=== PATIENT | female | born 1975 | race Caucasian/White ===

== ENCOUNTER 2016-12-19 16:41 | Inpatient (IN) ==
[2016-12-19] MEDS ORDERED: Pantoprazole 80 MG in 0.9 % Sodium Chloride 50 ML IVPB ONE (17:02)
[2016-12-19] MEDS ORDERED: *HR* HYDROmorphone (PF) 1 MG/ML SYRINGE IVP ONE ×2 (17:02→18:41)
[2016-12-19] MEDS ORDERED: Ondansetron 4 MG/2 ML VIAL IVP ONE (17:02)
[2016-12-19] MEDS ORDERED: 0.9 % Sodium Chloride 1,000 ML IVC ONE (17:02)
--- NOTE | 2016-12-19 17:02 | Emergency Department Note ---
Disposition Clinical Impression: Periorbital edema, Gastrointestinal bleeding, Anemia, Postoperative upper abdominal pain, Angiodysplasia of colon Disposition: Admitted As Inpatient Condition: Good Referrals: Marlon Rivera MD [Primary Care Provider] - Forms: Work/School Release, ED Satisfaction Letter General Adult HPI - General Chief complaint: ED Abdominal Pain Stated complaint: Abdominal Pain/ "GI Bleeding" Time Seen by Provider: 12/19/16 16:54 Source: patient Limitations: no limitations - History of Present Illness HPI Narrative: 41-year-old female reports emergency department complaining of abdominal pain. She describes diffuse abdominal pain and bright red blood per rectum. The patient had an EGD yesterday at this facility which was negative, her colonoscopy revealed multiple colonic lesions which were nonbleeding. She reports there were so many noted that they were consulted surgery to arrange for possible colonic resection. 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 She reports worsening abdominal pain and persistent rectal bleeding. There is no history of vomiting of black or bloody material. She has not known to be anticoagulated. She does take a PPI at home. The patient denies any chest pain or shortness of breath, there is no history of syncope or leidy weakness. No fevers, no urinary symptoms, she states she is status post hysterectomy and is not . There is no history of flank or back pain no vaginal bleeding discharge or pelvic complaints. There is no history of rash or trauma. Pain Scale: 10 - Related Data Home Medications Medication Instructions Recorded Confirmed Hyoscyamine Sulfate [Hyoscyamine 0.375 mg PO BID 12/18/16 12/19/16 Sulfate ER] Omeprazole [PriLOSEC] 40 mg PO DAILY 12/18/16 12/19/16 Ondansetron ODT [Zofran ODT] 4 mg SL Q8H PRN 12/18/16 12/19/16 Allergies Allergy/AdvReac Type Severity Reaction Status Date / Time fentanyl Allergy Hives Verified 12/07/16 16:26 All systems ED: reviewed and negative except as stated. Past Medical History - Past Medical History Medical history: Reports: GERD, GI bleed, other Surgical history: Reports: appendectomy, hysterectomy, other Psychiatric history: Reports: depression [employer] history: Reports: bilateral tubal ligation - Social History Smoking Status: Current every day smoker Smokeless Tobacco Status: No Alcohol use: Reports: none Drug use: Reports: none Physical Exam - General Limitations: no limitations General appearance: alert - Head Head exam: atraumatic, normocephalic, normal inspection - Eye Eye exam: Present: normal appearance, PERRL, EOMI - ENT ENT exam: normal exam, normal oropharynx, mucous membranes moist - Neck Neck exam: Present: normal inspection, full ROM, trachea midline - Chest Chest inspection: Present: symmetric chest wall rise. Absent: tenderness - Respiratory Respiratory exam: Present: normal lung sounds bilaterally. Absent: respiratory distress - Cardiovascular Cardiovascular exam: Present: normal rhythm, tachycardia - Abdominal Exam Abdominal exam: Present: soft, tenderness, hyperactive bowel sounds. Absent: distention, guarding, rebound, rigidity, trauma, ascites, pulsatile mass Abdominal tenderness: Present: RUQ, LUQ, diffuse, moderate - Extremities Exam Extremities exam: Present: normal inspection, full ROM, normal capillary refill. Absent: tenderness, pedal edema, joint swelling, calf tenderness - Expanded Lower Extremity Exam Lower leg exam: Absent: Homans' sign Neurovascular/Tendon exam: Absent: motor deficit, sensory deficit, tendon deficit, extremity cold to touch, pallor - Back Exam Back exam: Present: normal inspection, full ROM. Absent: tenderness, CVA tenderness (R), CVA tenderness (L), vertebral tenderness - Neurological Exam Neurological exam: Present: alert, oriented X3, CN II-XII intact. Absent: motor sensory deficit - Psychiatric Psychiatric exam: Present: normal affect, normal mood - Skin Skin exam: Present: warm, dry, intact, normal color. 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 On yesterday's colonoscopy she had no acute bleeding, of note her hemoglobin did drop to 9.8, she was initially tachycardic in the ED, but after 1 L of fluid her heart rate went into the 70s. The patient declined a rectal exam. She feels like she may have to have a BM very soon. There has been no syncope and she has remained stable in the ED. Based on apparent acute GI bleeding, a drop in hemoglobin associated with tachycardia, and known multiple angiodysplastic colonic lesion noted on colonoscopy from yesterday, I think it would be appropriate to observe the patient in the hospital. The patient is currently stable. Her CT does not reveal an acute intra-abdominal process. The patient may also benefit from GI and surgical consultations. Hemoccult ordered and pending. Second CBC ordered. I have discussed the case with the hospitalist on -call. - Lab Data Lab results reviewed: Yes I reviewed the patient's lab results. Result diagrams: 12/19/16 17:13 12/19/16 17:13 Lab Results 12/19/16 12/19/16 12/19/16 Range/Units 17:13 17:13 17:13 WBC 9.8 (4.3-11.1) K/mcL RBC 3.44 L (3.82-4.97) M/mcL Hgb 9.8 L (11.5-15.4) g/dL Hct 30.7 L (35.3-44.9) % MCV 89.2 (83.0-100.0) fL MCH 28.5 (28.0-33.3) pg MCHC 31.9 (31.6-35.5) g/dL RDW 14.6 H (11.5-14.5) % Plt Count 240 (140-400) K/mcL MPV 10.9 (9.4-12.4) fL Immature Gran % 0.3 (0-4) % Seg Neutrophils % 69.5 % Lymphocytes % 21.3 % Monocytes % 6.3 % Eosinophils % 2.3 % Basophils % 0.3 % Neutrophils # 6.8 (1.6-8.9) K/mcL Lymphocytes # 2.1 (0.6-4.6) K/mcL Monocytes # 0.6 (0.0-1.3) K/mcL Eosinophils # 0.2 (0.0-0.6) K/mcL Basophils # 0.0 (0.0-0.2) K/mcL PT (9.4-12.1) Seconds INR APTT (26.0-36.0) Seconds Sodium 139 (136-145) mEq/L Potassium 4.2 (3.5-4.5) mEq/L Chloride 107 (98-109) mEq/L Carbon Dioxide 25 (19-29) mEq/L BUN 11 (7-20) mg/dL Creatinine 0.74 (0.57-1.11) mg/dL Est GFR ( Amer) > 60 (> 60) Est GFR (Non-Af Amer) > 60 (> 60) BUN/Creatinine Ratio 15 (6-26) Glucose 89 (70-99) mg/dL Calculated Osmolality 287 (280-300) Lactic Acid (0.5-2.2) mmol/L Calcium 9.4 (8.6-10.8) mg/dL Total Bilirubin 0.3 (0.2-1.2) mg/dL Direct Bilirubin < 0.1 (0.0-0.5) mg/dL Indirect Bilirubin 0.2 (0.0-1.2) mg/dL AST 28 (5-34) Units/L ALT 31 (0-55) Units/L Alkaline Phosphatase 100 (38-126) Units/L C-Reactive Protein (Less than 5) mg/L Serum Total Protein 7.4 (6.0-8.3) g/dL Albumin 3.9 (3.5-5.0) g/dL Globulin 3.5 (2.4-3.5) g/dL Albumin/Globulin Ratio 1.1 (1.1-2.2) Lipase 36 (8-78) Units/L Urine Color Yellow (Yellow) Urine Clarity Clear (Clear) Urine pH 6.5 (5.0-8.0) pH Units Ur Specific [place] 1.013 (1.010-1.025) Urine Protein Negative (Neg-Trace) mg/dL Urine Glucose (UA) Normal (Normal) mg/dL Urine Ketones Negative (Negative) mg/dL Urine Blood Negative (Negative) Urine Nitrite Negative (Negative) Urine Bilirubin Negative (Negative) Urine Urobilinogen Normal (Normal) mg/dL Ur Leukocyte Esterase Negative (Negative) Ur Culture Indicated? NO (NO) Blood Type Antibody Screen 12/19/16 12/19/16 12/19/16 Range/Units 17:13 17:13 17:13 WBC (4.3-11.1) K/mcL RBC (3.82-4.97) M/mcL Hgb (11.5-15.4) g/dL Hct (35.3-44.9) % MCV (83.0-100.0) fL MCH (28.0-33.3) pg MCHC (31.6-35.5) g/dL RDW (11.5-14.5) % Plt Count (140-400) K/mcL MPV (9.4-12.4) fL Immature Gran % (0-4) % Seg Neutrophils % % Lymphocytes % % Monocytes % % Eosinophils % % Basophils % % Neutrophils # (1.6-8.9) K/mcL Lymphocytes # (0.6-4.6) K/mcL Monocytes # (0.0-1.3) K/mcL Eosinophils # (0.0-0.6) K/mcL Basophils # (0.0-0.2) K/mcL PT 11.9 (9.4-12.1) Seconds INR 1.1 APTT 34.4 (26.0-36.0) Seconds Sodium (136-145) mEq/L Potassium (3.5-4.5) mEq/L Chloride (98-109) mEq/L Carbon Dioxide (19-29) mEq/L BUN (7-20) mg/dL Creatinine (0.57-1.11) mg/dL Est GFR ( Amer) (> 60) Est GFR (Non-Af Amer) (> 60) BUN/Creatinine Ratio (6-26) Glucose (70-99) mg/dL Calculated Osmolality (280-300) Lactic Acid 0.7 (0.5-2.2) mmol/L Calcium (8.6-10.8) mg/dL Total Bilirubin (0.2-1.2) mg/dL Direct Bilirubin (0.0-0.5) mg/dL Indirect Bilirubin (0.0-1.2) mg/dL AST (5-34) Units/L ALT (0-55) Units/L Alkaline Phosphatase (38-126) Units/L C-Reactive Protein 3 (Less than 5) mg/L Serum Total Protein (6.0-8.3) g/dL Albumin (3.5-5.0) g/dL Globulin (2.4-3.5) g/dL Albumin/Globulin Ratio (1.1-2.2) Lipase (8-78) Units/L Urine Color (Yellow) Urine Clarity (Clear) Urine pH (5.0-8.0) pH Units Ur Specific [place] (1.010-1.025) Urine Protein (Neg-Trace) mg/dL Urine Glucose (UA) (Normal) mg/dL Urine Ketones (Negative) mg/dL Urine Blood (Negative) Urine Nitrite (Negative) Urine Bilirubin (Negative) Urine Urobilinogen (Normal) mg/dL Ur Leukocyte Esterase (Negative) Ur Culture Indicated? (NO) Blood Type Antibody Screen 12/19/16 Range/Units 17:19 WBC (4.3-11.1) K/mcL RBC (3.82-4.97) M/mcL Hgb (11.5-15.4) g/dL Hct (35.3-44.9) % MCV (83.0-100.0) fL MCH (28.0-33.3) pg MCHC (31.6-35.5) g/dL RDW (11.5-14.5) % Plt Count (140-400) K/mcL MPV (9.4-12.4) fL Immature Gran % (0-4) % Seg Neutrophils % % Lymphocytes % % Monocytes % % Eosinophils % % Basophils % % Neutrophils # (1.6-8.9) K/mcL Lymphocytes # (0.6-4.6) K/mcL Monocytes # (0.0-1.3) K/mcL Eosinophils # (0.0-0.6) K/mcL Basophils # (0.0-0.2) K/mcL PT (9.4-12.1) Seconds INR APTT (26.0-36.0) Seconds Sodium (136-145) mEq/L Potassium (3.5-4.5) mEq/L Chloride (98-109) mEq/L Carbon Dioxide (19-29) mEq/L BUN (7-20) mg/dL Creatinine (0.57-1.11) mg/dL Est GFR ( Amer) (> 60) Est GFR (Non-Af Amer) (> 60) BUN/Creatinine Ratio (6-26) Glucose (70-99) mg/dL Calculated Osmolality (280-300) Lactic Acid (0.5-2.2) mmol/L Calcium (8.6-10.8) mg/dL Total Bilirubin (0.2-1.2) mg/dL Direct Bilirubin (0.0-0.5) mg/dL Indirect Bilirubin (0.0-1.2) mg/dL AST (5-34) Units/L ALT (0-55) Units/L Alkaline Phosphatase (38-126) Units/L C-Reactive Protein (Less than 5) mg/L Serum Total Protein (6.0-8.3) g/dL Albumin (3.5-5.0) g/dL Globulin (2.4-3.5) g/dL Albumin/Globulin Ratio (1.1-2.2) Lipase (8-78) Units/L Urine Color (Yellow) Urine Clarity (Clear) Urine pH (5.0-8.0) pH Units Ur Specific [place] (1.010-1.025) Urine Protein (Neg-Trace) mg/dL Urine Glucose (UA) (Normal) mg/dL Urine Ketones (Negative) mg/dL Urine Blood (Negative) Urine Nitrite (Negative) Urine Bilirubin (Negative) Urine Urobilinogen (Normal) mg/dL Ur Leukocyte Esterase (Negative) Ur Culture Indicated? (NO) Blood Type A NEGATIVE Antibody Screen NEGATIVE - Radiology Data Radiology results reviewed: Yes I reviewed the patient's radiology results.
[2016-12-19 17:22] LABS: Basophils % 0.3 %; Eosinophils # 0.2 K/mcL (0.0-0.6); Eosinophils % 2.3 %; Hematocrit 30.7 % (35.3-44.9); Hemoglobin 9.8 g/dL (11.5-15.4); Immature Granulocytes % 0.3 % (0-4); Lymphocytes # 2.1 K/mcL (0.6-4.6); Lymphocytes % 21.3 %; Mean Corpuscular HGB Conc 31.9 g/dL (31.6-35.5); Mean Corpuscular Hemoglobin 28.5 pg (28.0-33.3); Mean Corpuscular Volume 89.2 fL (83.0-100.0); Mean Platelet Volume 10.9 fL (9.4-12.4); Monocytes # 0.6 K/mcL (0.0-1.3); Monocytes % 6.3 %; Neutrophils # 6.8 K/mcL (1.6-8.9); Platelet Count 240 K/mcL (140-400); Red Blood Count 3.44 M/mcL (3.82-4.97); Red Cell Distribution Width 14.6 % (11.5-14.5); Segmented Neutrophils % 69.5 %
[2016-12-19 17:27] LABS: Bilirubin,Urine Negative (Negative); Blood,Urine Negative (Negative); Clarity,Urine Clear (Clear); Color,Urine Yellow (Yellow); Glucose,Urine (UA) Normal (Normal); INR 1.1; Ketones,Urine Negative (Negative); Leukocyte Esterase,Urine Negative (Negative); Nitrite,Urine Negative (Negative); PH,Urine 6.5 pH Units (5.0-8.0); Protein,Urine Negative (Neg-Trace); Prothrombin Time 11.9 Seconds (9.4-12.1); Specific Gravity,Urine 1.013 (1.010-1.025); Urobilinogen,Urine Normal (Normal)
[2016-12-19 17:29] LABS: Activated Partial Thrombo Time 34.4 Seconds (26.0-36.0)
[2016-12-19 17:36] LABS: Alanine Aminotransferase 31 Units/L (0-55); Albumin 3.9 g/dL (3.5-5.0); Albumin/Globulin Ratio 1.1 (1.1-2.2); Alkaline Phosphatase 100 Units/L (38-126); Aspartate Amino Transferase 28 Units/L (5-34); BUN/Creatinine Ratio 15 (6-26); Bilirubin,Direct < 0.1 mg/dL (0.0-0.5); Bilirubin,Indirect 0.2 mg/dL (0.0-1.2); Bilirubin,Total 0.3 mg/dL (0.2-1.2); Blood Urea Nitrogen 11 mg/dL (7-20); Calcium 9.4 mg/dL (8.6-10.8); Carbon Dioxide 25 mEq/L (19-29); Chloride 107 mEq/L (98-109); Globulin 3.5 g/dL (2.4-3.5); Glucose 89 mg/dL (70-99); Lipase 36 Units/L (8-78); Osmolality,Calculated 287 (280-300); Potassium 4.2 mEq/L (3.5-4.5); Sodium 139 mEq/L (136-145); Total Protein 7.4 g/dL (6.0-8.3); eGFR For African Americans > 60 (> 60); eGFR For Non-African Americans > 60 (> 60)
[2016-12-19] MEDS ORDERED: Naloxone 0.4 MG/ML INJ IVP PRN (22:34)
--- NOTE | 2016-12-19 22:34 | Internal Med History&Physical ---
<Ankit Nails - Last Filed: 12/20/16 00:07> Date of Encounter: 12/19/16 Time of Encounter: 22:15 Assessment and Plan (1) Gastrointestinal bleeding Current visit: Yes Status: Acute Likely acute on chronic given description patient history. Patient describes a 2 episodes of hematochezia earlier in the day, this is recurrent in nature she has had prior episodes of hematochezia. She underwent colonoscopy on 12/18/16 that showed multiple AVMs that were nonbleeding at that time. Her hemoglobin has been seen to be trending downward with elevation of RDW is suspicious for chronic bleeding and iron deficiency. We will obtain type and screen and hold 2 units PRBCs if evidence of continued bleeding or patient becomes symptomatic and her anemia Hemoglobin checked about 1700 was 9.8 this is slightly down from her last hemoglobin check a week and half earlier, will obtain additional hemoglobin followed by morning CBC. Will transfuse if necessary Will obtain consult from gastroenterology and appreciate recommendations for continued management/care, concern patient might require additional colonoscopy to assess status of AVMs Patient nothing by mouth except for ice chips until further evaluation of gastrointestinal bleeding Maintenance fluid at 100 mL an hour normal saline Zofran as needed for patient nausea 40 mg pantoprazole daily Hyoscyamine and Dilaudid for patient pain and muscle spasms Continue telemetry due to concerns of anemia and development of tachycardia Continuous pulse oximetry Will obtain orthostatic vitals, immediate bedside evaluation showed minor increase in heart rate between laying down, sitting, and standing Qualifiers: GI bleed type/associated pathology: unspecified gastrointestinal hemorrhage type Qualified Code(s): K92.2 - Gastrointestinal hemorrhage, unspecified (2) Anemia Current visit: Yes Status: Acute Acute on chronic. Patient describes previous iron deficiency anemia and previous gastrointestinal bleeding. Plan as above Qualifiers: Anemia type: iron deficiency Iron deficiency anemia type: chronic blood loss Qualified Code(s): D50.0 - Iron deficiency anemia secondary to blood loss (chronic) (3) Angiodysplasia of colon Current visit: Yes Status: Acute Colonoscopy performed on 12/18/16 showed several AVMs that were nonbleeding at that time. The patient description of hematochezia, that is recurrent, concerned that she may have served bleeding possibly from what is locations. Plan as above (4) Postoperative upper abdominal pain Current visit: Yes Status: Acute Patient describes significant abdominal pain located in the right upper quadrant and suprapubic regions. She states that these have occurred before it is part of what initiated a workup for her previous bleed. Last endoscopy and colonoscopy were 12/18/16 that showed multiple AVMs in the colon that were nonbleeding. Although this pain comes following colonoscopy and EGD performed the day before, these are similar to the previous abdominal pain she was having prior to the procedures and likely from her chronic gastrointestinal difficulties. She states that she was given 1 mg Dilaudid in the emergency room although this was effective at removing her pain and also was too strong for her. We will start 0.5 mg Dilaudid every 2 hours when necessary for pain Continue patient home hyoscyamine in IV form (5) Nausea Current visit: Yes Status: Acute Patient continues to have nausea that she states has been going on for some time , she does takes Zofran at home to good benefit. We will continue Zofran for control patient nausea (6) DVT prophylaxis Current visit: Yes Status: Acute Patient describes current gastric intestinal bleeding, as such will hold chemical DVT prophylaxis Start intermittent pneumatic devices Bathroom privileges Internal Medicine - H&P: HPI Chief complaint: Gastrointestinal bleed and abdominal pain Admitted From: Home Plans for Post Hospital Care: Home History of present illness: Ms. Matos is a 41 year old female with medical history of appendectomy, tubal ligation, hysterectomy, chronic anemia (iron deficiency), and possible endometrioma on abdominal wall presents to [place] with reports of 2 episodes of hematochezia and abdominal pain. She reports these had the same symptoms in the past resulting in recent GI workup including upper endoscopy and colonoscopy performed 12/18/16. EGD revealed no pathology, but colonoscopy several AVMs were identified that were nonbleeding at that time. She states that about 1:00 this afternoon she began having significant abdominal pain that felt like burning/cramping in the right upper quadrant and suprapubic regions, following the onset of pain at about 2:00 in the afternoon she had her first episode of bright red blood per rectum. She stated that the bowl was filled with blood when going to the bathroom. She does report loose stools and a slight darkening color. She has history of chronic anemia that she states is due to iron deficiency and no family history of bleeding of any variety or colon cancer. Past Med Surg Social Fam HX - Past Medical History Medical history: GERD, GI bleed, other Psychiatric history: depression - Past Surgical History Surgical History: appendectomy, hysterectomy, other - Social History Smoking Status: Current every day smoker Smokeless Tobacco Status: No Alcohol use: none Drug use: none Internal Medicine - H&P: Meds Hyoscyamine Sulfate [Hyoscyamine Sulfate ER] 0.375 mg PO BID 12/18/16 [History] Omeprazole [PriLOSEC] 40 mg PO DAILY 12/18/16 [History] Ondansetron ODT [Zofran ODT] 4 mg SL Q8H PRN 12/18/16 [History] Allergies fentanyl Allergy (Verified 12/07/16 16:26) Hives - Constitutional Constitutional: anorexia, no chills, no fatigue, no fever(s), no falls, no lethargy, no weakness, no weight gain, no weight loss - EENT Eyes: no change in vision, no diplopia Nose, mouth and throat: no dry mouth, no dysphagia, no sore throat - Cardiovascular Cardiovascular ROS IM: no chest pain, no diaphoresis, no dyspnea, no dyspnea on exertion - Respiratory Respiratory: no cough, no dyspnea, no hemoptysis, no dyspnea on exertion, no pain on inspiration - Gastrointestinal Gastrointestinal: as per HPI, abdominal pain, diarrhea, hematochezia, nausea, no coffee ground emesis, no constipation, no hematemesis, no melena, no vomiting - Genitourinary Genitourinary: no dysuria, no hematuria - Musculoskeletal Musculoskeletal ROS IM: as per HPI, muscle cramps, no arthralgias, no back pain , no muscle weakness, no numbness, no tingling - Integumentary Integumentary IM: no pruritus, no rash, no jaundice - Neurological Neurological ROS: no confusion, no convulsions, no focal weakness, no numbness, no tingling, no tremor(s) - Constitutional Vitals: Temp Pulse Resp BP Pulse Ox 97.7 F 63 16 103/62 98 12/19/16 22:07 12/19/16 22:07 12/19/16 22:07 12/19/16 22:07 12/19/16 22:07 Exam: General: Cooperative, pleasant, no acute distress, alert and oriented 3, answers questions appropriately Head: Normocephalic, atraumatic Eye: Conjunctiva pink, sclera anicteric, EOMI, PERRL Neck: Supple, trachea midline, oral mucosa moist Respiratory: No accessory muscle usage, clear to auscultation bilaterally, no wheezes/rhonchi/rales appreciated Cardiovascular: Regular rate and rhythm, S1 and S2 present, no murmurs/rubs/ gallops/clicks appreciated GI/abdominal: Nondistended, exquisite tenderness to palpation, McBurney's positive, soft, hypoactive bowel sounds, no peritoneal signs Extremities: No calf tenderness, noncyanotic, no pedal edema appreciated, warm, lower extremity pulses palpable and symmetrical Neurological: Alert and oriented 3, no facial droop, no focal deficits Skin: Dry, intact, normal color Internal Med - H&P Results - Labs CBC & Chem 7: 12/19/16 17:13 12/19/16 17:13 <Que Marsh - Last Filed: 12/20/16 04:44> Assessment and Plan (1) Acute generalized abdominal pain Current visit: Yes Status: Acute . (2) Angiodysplasia of colon with hemorrhage Current visit: Yes Status: Acute . (3) BRBPR (bright red blood per rectum) Current visit: Yes Status: Acute . (4) Nicotine dependence with nicotine-induced disorder Current visit: Yes Status: Chronic . Qualifiers: Nicotine product type: cigarettes Qualified Code(s): F17.219 - Nicotine dependence, cigarettes, with unspecified nicotine-induced disorders (5) Chronic blood loss anemia Current visit: Yes Status: Chronic . (6) Microcytic hypochromic anemia Current visit: Yes Status: Chronic . (7) Acute blood loss anemia Current visit: Yes Status: Acute . (8) Postoperative upper abdominal pain Current visit: Yes Status: Acute (9) Angiodysplasia of colon Current visit: Yes Status: Acute (10) ASCVD (arteriosclerotic cardiovascular disease) Current visit: Yes Status: Chronic . (11) Irritable bowel Current visit: Yes Status: Chronic . Qualifiers: Irritable bowel syndrome type: unspecified Qualified Code(s): K58.9 - Irritable bowel syndrome without diarrhea Internal Medicine - H&P: HPI Admitted From: Home Plans for Post Hospital Care: Home History of present illness: Ms. Matos is a 41 year old female admitted to [facility] via the emergency department when she presented with reports of intractable abdominal pain associated with bright red blood per rectum as a postprocedural exacerbation. The patient undergone EGD (negative) and colonoscopy (revealing multiple colonic lesions nonbleeding but suspicious for angiodysplastic/AVMs). Reports that the endoscopist saw in discussion with her alluded to potential surgical consultation for elective hemicolectomy given the extent of angiodysplastic disease. She denied any other evidences of the bleeding events or clinical deficits. The patient was visited and interviewed and examined. I examined this patient and my medical decision-making was reviewed with the Resident Physician, Dr. Ankit Nails. For this encounter, I have reviewed the documentation, treatment plan, and medical decision making. I agree with the documented findings, disposition and treatment plan as described except to the extent set forth below. Cumulative laboratory and radiographic database was reviewed, considered and discussed. Given the patient's presenting complaints, past medical history, clinical findings and symptoms, she is admitted at this time to undergo further evaluation and disposition. Past Med Surg Social Fam HX - Past Medical History Source: old records reviewed Medical history: arthritis, GERD, GI bleed Psychiatric history: anxiety, depression, other - Past Surgical History Surgical History: appendectomy, hysterectomy, other (tubal ligation.) - Social History Smoking Status: Current every day smoker Packs per day: 1ppd Smokeless Tobacco Status: No Alcohol use: none Drug use: none Occupational status: employed Current living situation: With Family Activity Level: Independent ambulation, Mostly sedentary Recent Out of Country Travel Within the Last 8 Weeks: No Exposure or Possible Exposure to Illness During Travel: No All Systems PM: A 10-system review of systems was performed and is negative for pertinent findings except as documented above in the HPI. - Constitutional Constitutional: as per HPI, anorexia, malaise - EENT Eyes: as per HPI Ears: as per HPI, no ear discharge, no ear pain, no tinnitus Nose, mouth and throat: as per HPI, no dysphagia, no nasal discharge, no neck pain, no sore throat - Cardiovascular Cardiovascular ROS IM: as per HPI, no chest pain, no diaphoresis, no dyspnea, no lightheadedness, no palpitations, no syncope - Respiratory Respiratory: as per HPI, no cough, no dyspnea, no wheezing, no excessive phlegm production - Gastrointestinal Gastrointestinal: as per HPI, abdominal pain, diarrhea, hematochezia, nausea, no hematemesis, no melena, no vomiting - Genitourinary Genitourinary: as per HPI, no change in urinary stream, no dysuria, no flank pain, no hematuria Menstruation: as per HPI, post hysterectomy - Musculoskeletal Musculoskeletal ROS IM: as per HPI, muscle cramps - Integumentary Integumentary IM: as per HPI, no rash, no unusual bruising - Neurological Neurological ROS: as per HPI, no confusion, no convulsions, no focal weakness, no numbness, no tingling, no tremor(s) - Psychiatric Psychiatric: as per HPI - Endocrine Endocrine IM: as per HPI - Hematologic/Lymphatic Hematologic/Lymphatic: as per HPI, no easy bruising - Allergic/Immunologic Allergic/Immunologic: as per HPI - Constitutional Vitals: Temp Pulse Resp BP Pulse Ox 97.8 F 75 16 110/70 99 12/20/16 00:45 12/20/16 00:45 12/20/16 00:45 12/20/16 00:45 12/20/16 00:45 Internal Med - H&P Results - Labs CBC & Chem 7: 12/20/16 01:38 12/20/16 01:38 Labs: Short CBC 12/20/16 Range/Units 01:38 WBC 9.9 (4.3-11.1) K/mcL Hgb 8.9 L (11.5-15.4) g/dL Hct 28.6 L (35.3-44.9) % Plt Count 200 (140-400) K/mcL Neutrophils # 5.7 (1.6-8.9) K/mcL BMP 12/20/16 01:38 Sodium 143 Potassium 4.0 Chloride 113 H Carbon Dioxide 23 BUN 8 Creatinine 0.69 Glucose 91 Calcium 8.5 L Vital Signs Temp Pulse Resp BP Pulse Ox 12/20/16 00:45 97.8 F 75 16 110/70 99 12/19/16 22:07 97.7 F 63 16 103/62 98 12/19/16 20:29 16 98/73 12/19/16 18:37 70 16 124/83 100 12/19/16 17:36 98 12/19/16 17:25 82 18 126/59 98 12/19/16 16:45 97.9 F 102 14 143/72 96 Intake and Output 12/19/16 12/19/16 12/20/16 15:59 23:59 07:59 Intake Total 1050 / 1050 0 / 0 Output Total 0 / 0 0 / 0 Balance 1050 / 1050 0 / 0 Intake: IV Fluids 1050 / 1050 0.9 % Sodium Chloride 1, 1000 / 1000 000 ML @ 3750 mls/hr IVC .Q16M ONE Rx#:[id number] Protonix 80 MG In 0.9 % 50 / 50 Sodium Chloride 50 ML @ 600 mls/hr IVPB ONCE ONE Rx#:[id number] Oral 0 / 0 0 / 0 Output: Urine 0 / 0 0 / 0 Other: Weight 57.266 kg Blood Glucose* 100 - Impressions Laboratory Results WBC 9.9 K/mcL (4.3-11.1) 12/20/16 01:38 RBC 3.14 M/mcL (3.82-4.97) L 12/20/16 01:38 Hgb 8.9 g/dL (11.5-15.4) L 12/20/16 01:38 Hct 28.6 % (35.3-44.9) L 12/20/16 01:38 MCV 91.1 fL (83.0-100.0) 12/20/16 01:38 MCH 28.3 pg (28.0-33.3) 12/20/16 01:38 MCHC 31.1 g/dL (31.6-35.5) L 12/20/16 01:38 RDW 14.4 % (11.5-14.5) 12/20/16 01:38 Plt Count 200 K/mcL (140-400) 12/20/16 01:38 MPV 11.0 fL (9.4-12.4) 12/20/16 01:38 Immature Gran % 0.2 % (0-4) 12/20/16 01:38 Seg Neutrophils % 57.5 % 12/20/16 01:38 Lymphocytes % 30.8 % 12/20/16 01:38 Monocytes % 8.1 % 12/20/16 01:38 Eosinophils % 3.1 % 12/20/16 01:38 Basophils % 0.3 % 12/20/16 01:38 Neutrophils # 5.7 K/mcL (1.6-8.9) 12/20/16 01:38 Lymphocytes # 3.0 K/mcL (0.6-4.6) 12/20/16 01:38 Monocytes # 0.8 K/mcL (0.0-1.3) 12/20/16 01:38 Eosinophils # 0.3 K/mcL (0.0-0.6) 12/20/16 01:38 Basophils # 0.0 K/mcL (0.0-0.2) 12/20/16 01:38 PT 11.9 Seconds (9.4-12.1) 12/19/16 17:13 INR 1.1 12/19/16 17:13 APTT 34.4 Seconds (26.0-36.0) 12/19/16 17:13 Sodium 143 mEq/L (136-145) 12/20/16 01:38 Potassium 4.0 mEq/L (3.5-4.5) 12/20/16 01:38 Chloride 113 mEq/L (98-109) H 12/20/16 01:38 Carbon Dioxide 23 mEq/L (19-29) 12/20/16 01:38 BUN 8 mg/dL (7-20) 12/20/16 01:38 Creatinine 0.69 mg/dL (0.57-1.11) 12/20/16 01:38 Est GFR ( Amer) > 60 (> 60) 12/20/16 01:38 Est GFR (Non-Af Amer) > 60 (> 60) 12/20/16 01:38 BUN/Creatinine Ratio 12 (6-26) 12/20/16 01:38 Glucose 91 mg/dL (70-99) 12/20/16 01:38 POC Glucose 100 (58-89) H 12/20/16 00:50 Calculated Osmolality 294 (280-300) 12/20/16 01:38 Lactic Acid 0.7 mmol/L (0.5-2.2) 12/19/16 17:13 Calcium 8.5 mg/dL (8.6-10.8) L 12/20/16 01:38 Total Bilirubin 0.3 mg/dL (0.2-1.2) 12/19/16 17:13 Direct Bilirubin < 0.1 mg/dL (0.0-0.5) 12/19/16 17:13 Indirect Bilirubin 0.2 mg/dL (0.0-1.2) 12/19/16 17:13 AST 28 Units/L (5-34) 12/19/16 17:13 ALT 31 Units/L (0-55) 12/19/16 17:13 Alkaline Phosphatase 100 Units/L (38-126) 12/19/16 17:13 C-Reactive Protein 3 mg/L (Less than 5) 12/19/16 17:13 Serum Total Protein 7.4 g/dL (6.0-8.3) 12/19/16 17:13 Albumin 3.9 g/dL (3.5-5.0) 12/19/16 17:13 Globulin 3.5 g/dL (2.4-3.5) 12/19/16 17:13 Albumin/Globulin Ratio 1.1 (1.1-2.2) 12/19/16 17:13 Lipase 36 Units/L (8-78) 12/19/16 17:13 Urine Color Yellow (Yellow) 12/19/16 17:13 Urine Clarity Clear (Clear) 12/19/16 17:13 Urine pH 6.5 pH Units (5.0-8.0) 12/19/16 17:13 Ur Specific [place] 1.013 (1.010-1.025) 12/19/16 17:13 Urine Protein Negative mg/dL (Neg-Trace) 12/19/16 17:13 Urine Glucose (UA) Normal mg/dL (Normal) 12/19/16 17:13 Urine Ketones Negative mg/dL (Negative) 12/19/16 17:13 Urine Blood Negative (Negative) 12/19/16 17:13 Urine Nitrite Negative (Negative) 12/19/16 17:13 Urine Bilirubin Negative (Negative) 12/19/16 17:13 Urine Urobilinogen Normal mg/dL (Normal) 12/19/16 17:13 Ur Leukocyte Esterase Negative (Negative) 12/19/16 17:13 Ur Culture Indicated? NO (NO) 12/19/16 17:13 Blood Type A NEGATIVE 12/19/16 17:19 Antibody Screen NEGATIVE 12/19/16 17:19 Crossmatch See Detail 12/19/16 17:19 Impressions Abdomen/Pelvis CT 12/19/16 17:04 IMPRESSION: 1. No acute abnormality within the abdomen and pelvis. 2. Periportal edema is a nonspecific finding which, among other things can be cardiogenic or associated with hepatitis. D/ / Sandeep Madrid MD / Sandeep Madrid MD Interpreting Provider: Sandeep Madrid MD Chest X-Ray 12/19/16 17:06 IMPRESSION: No acute cardiopulmonary abnormality. D/ / Eduardo Odom MD / Eduardo Odom MD Interpreting Provider: Eduardo Odom MD - Attending Attestation My signature below is to certify that this patient is under my care and that I, or the Resident Physician working with me, Dr. Ankit aNils, has had a face-to- face encounter with this patient. Plan of care has been reviewed and discussed in detail with the patient. Questions addressed. Healthcare directive discussed briefly addressed. Patient does not declare any healthcare restrictions at this time. Outpatient medication schedules, confirmed and facilitated as appropriate. Reconciliation of home treatments including adjustments, substitutions and reintroduction into the treatment regimen will address necessary maintenance therapies for chronic pre-existing medical conditions. Smoking cessation counseling briefly addressed. The patient accepts nicotine substitution during this admission. Hospital course will be dictated by clinical findings, treatment response and potential consultative interventions. Initial consultative opinion has been requested of gastroenterology. The patient is at risk for further acute clinical decline and morbidity in this presenting chief complaint, findings and comorbid conditions. Condition is serious. Prognosis is guarded. CODE STATUS is full.
[2016-12-19] MEDS ORDERED: Hyoscyamine 0.5 MG/ML MLS IVP PRN (23:01)
[2016-12-19] MEDS: 0.9 % Sodium Chloride 1,000 ML IVC SCH (23:24)
[2016-12-19] MEDS: Ondansetron 4 MG/2 ML VIAL IVP PRN (23:24)
[2016-12-19] MEDS: *HR* HYDROmorphone (PF) 1 MG/ML SYRINGE IVP PRN (23:25)
[2016-12-20 01:48] LABS: Basophils % 0.3 %; Eosinophils # 0.3 K/mcL (0.0-0.6); Eosinophils % 3.1 %; Hematocrit 28.6 % (35.3-44.9); Hemoglobin 8.9 g/dL (11.5-15.4); Immature Granulocytes % 0.2 % (0-4); Lymphocytes % 30.8 %; Mean Corpuscular HGB Conc 31.1 g/dL (31.6-35.5); Mean Corpuscular Hemoglobin 28.3 pg (28.0-33.3); Mean Corpuscular Volume 91.1 fL (83.0-100.0); Monocytes # 0.8 K/mcL (0.0-1.3); Monocytes % 8.1 %; Neutrophils # 5.7 K/mcL (1.6-8.9); Platelet Count 200 K/mcL (140-400); Red Blood Count 3.14 M/mcL (3.82-4.97); Red Cell Distribution Width 14.4 % (11.5-14.5); Segmented Neutrophils % 57.5 %
[2016-12-20] MEDS: *HR* HYDROmorphone (PF) 1 MG/ML SYRINGE IVP PRN ×6 (02:02→23:44)
[2016-12-20 02:05] LABS: BUN/Creatinine Ratio 12 (6-26); Blood Urea Nitrogen 8 mg/dL (7-20); Calcium 8.5 mg/dL (8.6-10.8); Carbon Dioxide 23 mEq/L (19-29); Chloride 113 mEq/L (98-109); Glucose 91 mg/dL (70-99); Osmolality,Calculated 294 (280-300); Sodium 143 mEq/L (136-145); eGFR For African Americans > 60 (> 60); eGFR For Non-African Americans > 60 (> 60)
[2016-12-20] MEDS ORDERED: Acetaminophen 325 MG TABLET PO PRN (04:08)
[2016-12-20] MEDS ORDERED: *HR* OxyCODONE Immed Rel 5 MG TABLET PO PRN (04:08)
[2016-12-20] MEDS ORDERED: Benzonatate 100 MG CAPSULE PO PRN (04:14)
[2016-12-20] MEDS: Ondansetron 4 MG/2 ML VIAL IVP PRN ×3 (04:37→21:39)
[2016-12-20] MEDS: Pantoprazole 40 MG VIAL IVP SCH (08:03)
[2016-12-20] MEDS: Nicotine 14 MG PATCH.TD24 TD SCH (08:03)
[2016-12-20] MEDS: 0.9 % Sodium Chloride 1,000 ML IVC SCH ×2 (08:12→17:54)
--- NOTE | 2016-12-20 08:49 | Gastroenterology Consult Note ---
<Krissy Bradley - Last Filed: 12/20/16 10:07> Date of Encounter: 12/20/16 Time of Encounter: 09:40 - Assessment and plan (1) Hematochezia Current Visit: Yes Status: Acute Assessment and plan: secondary to multiple colonic AVMs. (2) Anemia Current Visit: Yes Status: Chronic Assessment and plan: Acute on chronic. She has been mildly anemic since October,. Currently 8.9. Continue to monitor, transfuse as necessary. Check iron profile. Qualifiers: Anemia type: iron deficiency Iron deficiency anemia type: chronic blood loss Qualified Code(s): D50.0 - Iron deficiency anemia secondary to blood loss (chronic) (3) Angiodysplasia of colon Current Visit: Yes Status: Acute - Time Spent With Patient Total time spent is greater than 50% in coordination of care (as documented) at patient's floor/unit and/or counseling patient: less than 15 minutes GI History of Present Illness - Data of Consult Patient: known to practice within the last 3 years Consult date: 12/20/16 Requesting Physician: Nydia Castelan MD - Consult Narrative Reason for consult: Hematochezia History of present illness: Ms. Matos is a 41 year old female with a PMH of appendectomy, tubal ligation, hysterectomy, chronic anemia (iron deficiency), and possible endometrioma on abdominal wall. She presented to [place] with reports of 2 episodes of hematochezia and abdominal pain. She reports these had the same symptoms in the past resulting in recent GI workup including upper endoscopy and colonoscopy performed 12/18/[address] Campos. EGD revealed no pathology, but colonoscopy identified multiple non-bleeding AVMs. She states that about 1:00 yesterday afternoon she began having significant abdominal pain that felt like burning/cramping in the right upper quadrant and suprapubic regions, following the onset of pain at about 2:00 in the afternoon she had her first episode of bright red blood per rectum. She stated that the bowl was filled with blood when going to the bathroom. She does report loose stools and a slight darkening color. She has history of chronic anemia that she states is due to iron deficiency and no family history of bleeding of any variety or colon cancer. Currently her hgb is 8.9. Patient had one more episode of hematochezia last pm. Patient states she has had symptoms since 2015, progressively worsening. She does get tender with the bleeding episodes. Normally, she moves her bowels daily. Colonoscopy: 12/18/2016 - [facility] - multiple AVMs, consult surgery EGD: 12/18/2016 - [facility]. Past Med Surg Social Fam HX - Past Medical History Medical history: arthritis, GERD, GI bleed Psychiatric history: anxiety, depression, other - Past Surgical History Surgical History: appendectomy, hysterectomy, other (tubal ligation.) - Social History Smoking Status: Current every day smoker Packs per day: 1ppd Smokeless Tobacco Status: No Alcohol use: none Drug use: none - Gastrointestinal NSAID use: None Anticoagulation Use: None Number of BM Per Day: daily Gastrointestinal: Present: abdominal pain, hematochezia - Constitutional Constitutional: fatigue - EENT Eyes: as per HPI Ears: Present: as per HPI Nose, mouth and throat: Present: as per HPI - Cardiovascular Cardiovascular ROS: Present: as per HPI - Respiratory Respiratory IM: Present: as per HPI - Neurological ROS Neurological GI: Present: weakness - Hematologic/Lymphatic Hematologic/Lymphatic pediatric: Present: as per HPI - Musculoskeletal Musculoskeletal ROS GI: Present: as per HPI - Integumentary Integumentary GI: Present: as per HPI - Psychiatric ROS Psychiatric GI: Present: as per HPI - Endocrine Endocrine IM: Present: fatigue - Constitutional Vitals: Temp Pulse Resp BP Pulse Ox 98.2 F 66 18 106/69 100 12/20/16 07:34 12/20/16 07:34 12/20/16 07:34 12/20/16 07:34 12/20/16 07:34 - Head Head exam: Present: atraumatic, normocephalic - Eye Eye exam: Present: normal appearance, sclera anicteric - ENT ENT exam: Present: mucous membranes moist - Neck Neck exam general surgery: Present: normal inspection, trachea midline - Respiratory Respiratory exam: Present: CTAB - Cardiovascular Cardiovascular exam: Present: RRR, +S1, +S2 - GI/Abdominal GI/Abdominal exam: Present: soft, tenderness, no peritoneal signs - Rectal Rectal exam: Present: deferred - Extremities Exam Extremities exam: Present: warm - Neurological Exam Neurological exam: Present: no focal deficits - Psychiatric Psychiatric exam: Present: normal affect, normal mood - Skin Skin exam: Present: dry, intact, normal color, warm Results - Labs CBC & Chem 7: 12/20/16 09:11 12/20/16 01:38 Labs: Last Result Calcium 8.5 mg/dL (8.6-10.8) L 12/20/16 01:38 C-Reactive Protein 3 mg/L (Less than 5) 12/19/16 17:13 Entire Visit Hgb 8.9 g/dL (11.5-15.4) L 12/20/16 01:38 Hct 28.6 % (35.3-44.9) L 12/20/16 01:38 PT 11.9 Seconds (9.4-12.1) 12/19/16 17:13 Total Bilirubin 0.3 mg/dL (0.2-1.2) 12/19/16 17:13 AST 28 Units/L (5-34) 12/19/16 17:13 ALT 31 Units/L (0-55) 12/19/16 17:13 Lipase 36 Units/L (8-78) 12/19/16 17:13 - ABG ABG results: PT/INR, D-dimer PT 11.9 Seconds (9.4-12.1) 12/19/16 17:13 Consult Discharge Plan - Plan Referrals: Kalie Hollingsworth [Advanced Practice Nurse] - 12/30/16 8:30 am Marlon Rivera MD [Primary Care Provider] - <Minerva Purcell - Last Filed: 12/20/16 11:25> Time of Encounter: 10:30 - Time Spent With Patient Total time spent is greater than 50% in coordination of care (as documented) at patient's floor/unit and/or counseling patient: GI History of Present Illness - Data of Consult Requesting Physician: Nydia Castelan MD - Consult Narrative History of present illness: Ms. Matos is a 41 year old female - Constitutional Vitals: Temp Pulse Resp BP Pulse Ox 98.2 F 66 18 106/69 100 12/20/16 07:34 12/20/16 07:34 12/20/16 07:34 12/20/16 07:34 12/20/16 07:34 Results - Labs CBC & Chem 7: 12/20/16 09:11 12/20/16 01:38 Labs: Last Result Calcium 8.5 mg/dL (8.6-10.8) L 12/20/16 01:38 Iron 30 mcg/dL (50-170) L 12/20/16 09:11 % Saturation 7 % (15-50) L 12/20/16 09:11 Transferrin 289 mg/dL (180-382) 12/20/16 09:11 C-Reactive Protein 3 mg/L (Less than 5) 12/19/16 17:13 Entire Visit Hgb 8.2 g/dL (11.5-15.4) L 12/20/16 09:11 Hct 26.5 % (35.3-44.9) L 12/20/16 09:11 PT 11.9 Seconds (9.4-12.1) 12/19/16 17:13 Total Bilirubin 0.3 mg/dL (0.2-1.2) 12/19/16 17:13 AST 28 Units/L (5-34) 12/19/16 17:13 ALT 31 Units/L (0-55) 12/19/16 17:13 Lipase 36 Units/L (8-78) 12/19/16 17:13 - ABG ABG results: PT/INR, D-dimer PT 11.9 Seconds (9.4-12.1) 12/19/16 17:13 - Attending Attestation I examined this patient and my medical decision-making was reviewed with the SENIOR ADVOCATE/PA/Advanced Practice Nurse/Resident Physician. I agree with the documented findings, disposition and treatment plan as described except to the extent set forth below. Dr. Berman already consulted by Dr. Oglesby for right hemicolectomy at the time of procedure on Friday. Patient is scheduled to have surgery done tomorrow. Agree with plan. Patient is also agreeable with the plan.
[2016-12-20] MEDS ORDERED: Polyethylene Glycol 3350 255 GM POWDER PO ONE (09:57)
[2016-12-20 10:03] LABS: Hematocrit 26.5 % (35.3-44.9); Hemoglobin 8.2 g/dL (11.5-15.4)
[2016-12-20] MEDS ORDERED: *HR* HYDROcodone/Acet 5/325 mg TABLET PO ONE (10:09)
--- NOTE | 2016-12-20 10:14 | General Surgery Consult Note ---
<Joel Samano - Last Filed: 12/20/16 10:42> Date of Encounter: 12/20/16 Time of Encounter: 10:12 Assessment and Plan (1) Angiodysplasia of colon with hemorrhage Current Visit: Yes Status: Acute Patient with recurrent hematochezia Recently 12/18/16 underwent colonoscopy which revealed: multiple large patchy angiodysplatic lesions without bleeding at the hepatic flexure and in the distal transverse colon It was recommended she obtain surgical referral for possible right hemicolectomy She was admitted to the hospital yesterday, 12/19/16 for multiple episodes of hematochezia with anemia. She has failed previous conservative treatments. We will prep her for a right hemicolectomy for tomorrow, 12/21/16 Bowel prep with miralax and gatorade antibiotic GI prep with neomycin and erythromycin clear liquids todan, then NPO after midnight pain control IVF (2) Acute blood loss anemia Current Visit: Yes Status: Acute 2/2 colonic AVM with hematochezia Hgb 9.8 on admisssion. Down to 8.2 today. Type and screen has been done. 2 units PRBC ordered and pending transfusion if Hgb <7 History of Present Illness Consult date: 12/20/16 Reason for consult: other (Abd pain w/hematochezia) Requesting physician: Nadia Telles History of present illness: Ms. Matos is a 41 year old female with medical history of appendectomy, tubal ligation, hysterectomy, chronic anemia (iron deficiency), and possible endometrioma on abdominal wall presents to [place] with reports of 2 episodes of hematochezia and abdominal pain. She reports these had the same symptoms in the past resulting in recent GI workup including upper endoscopy and colonoscopy performed 12/18/16. EGD revealed no pathology, but colonoscopy several AVMs were identified that were nonbleeding at that time. It was discussed with patient about the possibility of requiring surgical intervention. She states that on 12/19/16 she began to have significant abdominal pain that felt like burning/cramping in the right upper quadrant and suprapubic regions. Shortly after the pain began she started having bright red blood per rectum. She stated that the bowl was filled with blood when going to the bathroom. She does report loose stools and a slight darkening color. She reports continued abdominal pain, appetite, nausea. She denies fever, sob, chest pain, vomiting, light headedness, syncope. Past Med Surg Social Fam HX - Past Medical History Medical history: arthritis, GERD, GI bleed Psychiatric history: anxiety, depression, other - Past Surgical History Surgical History: appendectomy, hysterectomy, other (tubal ligation.) - Social History Smoking Status: Current every day smoker Packs per day: 1ppd Smokeless Tobacco Status: No Alcohol use: none Drug use: none Medications and Allergies Hyoscyamine Sulfate [Hyoscyamine Sulfate ER] 0.375 mg PO BID 12/18/16 [History] Omeprazole [PriLOSEC] 40 mg PO DAILY 12/18/16 [History] Ondansetron ODT [Zofran ODT] 4 mg SL Q8H PRN 12/18/16 [History] Allergies fentanyl Allergy (Verified 12/07/16 16:26) Hives Review of Systems All systems PM: reviewed and no additional remarkable complaints except as stated All systems PM: A 10-system review of systems was performed and is negative for pertinent findings except as documented above in the HPI. General Surgery Exam Initial Vital Signs Temp Pulse Resp BP Pulse Ox 97.9 F 102 14 143/72 96 12/19/16 16:45 12/19/16 16:45 12/19/16 16:45 12/19/16 16:45 12/19/16 16:45 - General physical appearance well developed, well nourished - Eyes normal ocular movement - Respiratory normal respiratory effort - Cardiovascular Cardiovascular exam: Present: RRR, regular rhythm, no murmurs/rubs/gallops - Abdomen Abdomen general surgery: Present: bowel sounds present, tender Abdominal Tenderness: Present: RUQ Hernia: Present: none - Rectum Rectum: Absent: no bleeding - Neurologic Present: CN 2-12 grossly intact Exam Initial Vital Signs Temp Pulse Resp BP Pulse Ox 97.9 F 102 14 143/72 96 12/19/16 16:45 12/19/16 16:45 12/19/16 16:45 12/19/16 16:45 12/19/16 16:45 Results - Labs 12/20/16 09:11 12/20/16 01:38 Abnormal lab results RBC 3.14 M/mcL (3.82-4.97) L 12/20/16 01:38 Hgb 8.2 g/dL (11.5-15.4) L 12/20/16 09:11 Hct 26.5 % (35.3-44.9) L 12/20/16 09:11 MCHC 31.1 g/dL (31.6-35.5) L 12/20/16 01:38 Chloride 113 mEq/L (98-109) H 12/20/16 01:38 POC Glucose 96 (58-89) H 12/20/16 06:00 Calcium 8.5 mg/dL (8.6-10.8) L 12/20/16 01:38 Diabetes panel 12/20/16 Range/Units 01:38 Sodium 143 (136-145) mEq/L Potassium 4.0 (3.5-4.5) mEq/L Chloride 113 H (98-109) mEq/L Carbon Dioxide 23 (19-29) mEq/L BUN 8 (7-20) mg/dL Creatinine 0.69 (0.57-1.11) mg/dL Glucose 91 (70-99) mg/dL Calcium 8.5 L (8.6-10.8) mg/dL Calcium panel 12/20/16 Range/Units 01:38 Calcium 8.5 L (8.6-10.8) mg/dL Pituitary panel 12/20/16 Range/Units 01:38 Sodium 143 (136-145) mEq/L Potassium 4.0 (3.5-4.5) mEq/L Chloride 113 H (98-109) mEq/L Carbon Dioxide 23 (19-29) mEq/L BUN 8 (7-20) mg/dL Creatinine 0.69 (0.57-1.11) mg/dL Glucose 91 (70-99) mg/dL Calcium 8.5 L (8.6-10.8) mg/dL Adrenal panel 12/20/16 Range/Units 01:38 Sodium 143 (136-145) mEq/L Potassium 4.0 (3.5-4.5) mEq/L Chloride 113 H (98-109) mEq/L Carbon Dioxide 23 (19-29) mEq/L BUN 8 (7-20) mg/dL Creatinine 0.69 (0.57-1.11) mg/dL Glucose 91 (70-99) mg/dL Calcium 8.5 L (8.6-10.8) mg/dL All other labs normal. Consult Discharge Plan - Plan Referrals: Klaie Hollingsworth [Advanced Practice Nurse] - 12/30/16 8:30 am <CullenAlec - Last Filed: 12/21/16 09:28> Date of Encounter: 12/20/16 Assessment and Plan (1) Angiodysplasia of colon Current Visit: Yes Status: Acute Review of Systems All systems PM: A 10-system review of systems was performed and is negative for pertinent findings except as documented above in the HPI. General Surgery Exam Initial Vital Signs Temp Pulse Resp BP Pulse Ox 97.9 F 102 14 143/72 96 12/19/16 16:45 12/19/16 16:45 12/19/16 16:45 12/19/16 16:45 12/19/16 16:45 Exam Initial Vital Signs Temp Pulse Resp BP Pulse Ox 97.9 F 102 14 143/72 96 12/19/16 16:45 12/19/16 16:45 12/19/16 16:45 12/19/16 16:45 12/19/16 16:45 Results - Labs 12/21/16 05:00 12/21/16 05:00 Abnormal lab results RBC 3.07 M/mcL (3.82-4.97) L 12/21/16 05:00 Hgb 8.8 g/dL (11.5-15.4) L 12/21/16 05:00 Hct 27.5 % (35.3-44.9) L 12/21/16 05:00 BUN 5 mg/dL (7-20) L 12/21/16 05:00 POC Glucose 103 (58-89) H 12/21/16 05:54 Calcium 8.2 mg/dL (8.6-10.8) L 12/21/16 05:00 Iron 30 mcg/dL (50-170) L 12/20/16 09:11 % Saturation 7 % (15-50) L 12/20/16 09:11 Diabetes panel 12/21/16 Range/Units 05:00 Sodium 139 (136-145) mEq/L Potassium 3.9 (3.5-4.5) mEq/L Chloride 109 (98-109) mEq/L Carbon Dioxide 21 (19-29) mEq/L BUN 5 L (7-20) mg/dL Creatinine 0.63 (0.57-1.11) mg/dL Glucose 96 (70-99) mg/dL Calcium 8.2 L (8.6-10.8) mg/dL Calcium panel 12/21/16 Range/Units 05:00 Calcium 8.2 L (8.6-10.8) mg/dL Pituitary panel 12/21/16 Range/Units 05:00 Sodium 139 (136-145) mEq/L Potassium 3.9 (3.5-4.5) mEq/L Chloride 109 (98-109) mEq/L Carbon Dioxide 21 (19-29) mEq/L BUN 5 L (7-20) mg/dL Creatinine 0.63 (0.57-1.11) mg/dL Glucose 96 (70-99) mg/dL Calcium 8.2 L (8.6-10.8) mg/dL Adrenal panel 12/21/16 Range/Units 05:00 Sodium 139 (136-145) mEq/L Potassium 3.9 (3.5-4.5) mEq/L Chloride 109 (98-109) mEq/L Carbon Dioxide 21 (19-29) mEq/L BUN 5 L (7-20) mg/dL Creatinine 0.63 (0.57-1.11) mg/dL Glucose 96 (70-99) mg/dL Calcium 8.2 L (8.6-10.8) mg/dL All other labs normal. - Attending Attestation I examined this patient and my medical decision-making was reviewed with the CLAIMS COUNSEL/PA/Advanced Practice Nurse/Resident Physician. I agree with the documented findings, disposition and treatment plan as described except to the extent set forth below. The patient has seen and evaluated with rest. Patient has actively bleeding angiodysplasia of the right colon. We will plan mechanical and antibiotic colon preparation in anticipation of right hemicolectomy tomorrow. I discussed the risks and benefits of surgery with the patient she understands and wishes to proceed. Alec Berman MD FACS
[2016-12-20 10:44] LABS: % Iron Saturation 7 % (15-50); Iron 30 mcg/dL (50-170); Transferrin 289 mg/dL (180-382)
[2016-12-20] MEDS ORDERED: *HR* HYDROmorphone (PF) 1 MG/ML SYRINGE IVP PRN (11:00)
[2016-12-20] MEDS ORDERED: *HR* HYDROmorphone (PF) 1 MG/ML SYRINGE ONE (12:01)
--- NOTE | 2016-12-20 14:59 | Internal Med Progress Note ---
<Nadia Telles - Last Filed: 12/20/16 15:30> Date of Encounter: 12/20/16 Time of Encounter: 08:45 - Assessment and plan (1) Hematochezia Current Visit: Yes Status: Acute Assessment and plan: Patient with h/o of recurrent GI bleeding over past 6mo. Reports in past has resolved without treatment. She is a patient of Dr. Campos and had colonoscopy 2 days ago showing multiple AVM in the right colon that were not bleeding at the time of inspection. Per report right hemicolectomy was recommended. EGD showed no abnormalities. Patient presented to the ED yesterday after experiencing increasing RUQ abdominal pain and 2 episodes of loose stool with bright red blood noted in the toilet bowl. Patient denies dizziness, sob, palpitations, syncope. Denies alcohol/nsaid use. On exam RUQ tenderness and guarding noted. No rebound. CT abd/pelvis in the ED showed no acute abdominal/ pelivic disease. There was periportal edema noted. H/H on arrival was 9.8/28.6. Now 8.2/26.5. Orthostatic vitals negative. Suspect recurrent bleeding secondary to AVM noted on colonoscopy two days ago. Appears to be hemodynamically stable at this time. * Type/Screen ordered. 2U PRBC ready for transfusion if Hb<7 or patient becomes unstable * GI consult placed. Patient has been NPO after midnight last night. * Surgery consult has been placed. * Continue home med Protonix 40mg/day and hyocyamine * Zofran available PRN for nausea/vomiting * 1mg Dilaudid available for severe pain/ Tylenol 650mg available prn for mild- moderate pain. * Maintenance fluids (NS) running at 100cc/hr * Will continue to monitor vitals and H/h. Appreciate any further recommendations from GI/Surgery (2) Angiodysplasia of colon Current Visit: Yes Status: Acute Assessment and plan: See above. Patient with recent colonoscopy showing mild colonic spasm, multiple non-bleeding colonic angiodysplastic lesions, distal rectum and anal verge are normal on retroflexion view. (3) Anemia Current Visit: Yes Status: Chronic Assessment and plan: Patient with Hb 9.8 on arrival - 8.2 now. MCV normal at this time. Hb was 11.8 in September 2016. Likely secondary to recent episodes of hematochezia as described above. Will continue to monitor hemodynamic status and H/h. Will transfuse if Hb < 7 or patient becomes unstable. Qualifiers: Anemia type: iron deficiency Iron deficiency anemia type: chronic blood loss Qualified Code(s): D50.0 - Iron deficiency anemia secondary to blood loss (chronic) - Subjective Interval history: I have seen and examined the patient this morning. Reports she is still having some abdominal pain mostly in the RUQ. She has had one loose BM early this morning with bright red blood noted in the bowl. Denies dizziness, sob, cp, palpitations, nausea or vomiting. Reports no other symptoms at this time. - Constitutional Vitals: Temp Pulse Resp BP Pulse Ox 98.6 F 77 18 115/73 98 12/20/16 11:30 12/20/16 11:30 12/20/16 11:30 12/20/16 11:30 12/20/16 11:30 General appearance: Present: A&O X 3, pleasant, no acute distress, answers questions appropriately - Head Head exam: Present: atraumatic, normocephalic - Eye Eye exam: Present: PERRL, conjuntiva pink, sclera anicteric Pupils: Present: PERRL - ENT ENT exam: Present: mucous membranes moist - Neck Neck exam general surgery: Present: normal inspection, trachea midline - Respiratory Respiratory exam: Present: CTAB. Absent: accessory muscle use, rales, rhonchi, wheezes - Cardiovascular Cardiovascular exam: Present: RRR, +S1, +S2. Absent: diastolic murmur, gallop, rubs, systolic murmur - GI/Abdominal GI/Abdominal exam: Present: guarding, normal bowel sounds, soft, tenderness ( diffuse tenderness. most prominent in RUQ). Absent: distended, rebound, rigid - Extremities Exam Extremities exam: Present: warm, radial pulses palpable and symetrical. Absent : calf tenderness, cyanotic, pedal edema - Neurological Exam Neurological exam: Present: CN II-XII intact, oriented X3, no focal deficits. Absent: pronater drift, facial droop, speech deficit - Psychiatric Psychiatric exam: Present: normal affect, normal mood - Skin Skin exam: Present: dry, intact Internal Medicine: Result - Labs CBC & Chem 7: 12/20/16 09:11 12/20/16 01:38 Labs: Short CBC 12/20/16 12/20/16 Range/Units 01:38 09:11 WBC 9.9 (4.3-11.1) K/mcL Hgb 8.9 L 8.2 L (11.5-15.4) g/dL Hct 28.6 L 26.5 L (35.3-44.9) % Plt Count 200 (140-400) K/mcL Neutrophils # 5.7 (1.6-8.9) K/mcL BMP 12/20/16 01:38 Sodium 143 Potassium 4.0 Chloride 113 H Carbon Dioxide 23 BUN 8 Creatinine 0.69 Glucose 91 Calcium 8.5 L - ABG Interpretation ABG results: PT/INR, D-dimer PT 11.9 Seconds (9.4-12.1) 12/19/16 17:13 - Impressions Abdomen/Pelvis CT 12/19/16 17:04 IMPRESSION: 1. No acute abnormality within the abdomen and pelvis. 2. Periportal edema is a nonspecific finding which, among other things can be cardiogenic or associated with hepatitis. D/ / Sandeep Madrid MD / Sandeep Madrid MD Interpreting Provider: Sandeep Madrid MD Chest X-Ray 12/19/16 17:06 IMPRESSION: No acute cardiopulmonary abnormality. D/ / Eduardo Odom MD / Eduardo Odom MD Interpreting Provider: Eduardo Odom MD - VTE Documentation of Mechanical Device: Graduated compression elastic hosiery Consult Discharge Plan - Plan Referrals: Kalie Hollingsworth [Advanced Practice Nurse] - 12/30/16 8:30 am Marlon Rivera MD [Primary Care Provider] - <Terrence Welsh T - Last Filed: 12/20/16 17:05> - Constitutional Vitals: Temp Pulse Resp BP Pulse Ox 97.5 F L 70 18 119/72 100 12/20/16 15:10 12/20/16 15:10 12/20/16 15:10 12/20/16 15:10 12/20/16 15:10 Internal Medicine: Result - Labs CBC & Chem 7: 12/20/16 16:07 12/20/16 16:07 Labs: Short CBC 12/20/16 12/20/16 12/20/16 Range/Units 01:38 09:11 16:07 WBC 9.9 (4.3-11.1) K/mcL Hgb 8.9 L 8.2 L 8.4 L (11.5-15.4) g/dL Hct 28.6 L 26.5 L 27.0 L (35.3-44.9) % Plt Count 200 (140-400) K/mcL Neutrophils # 5.7 (1.6-8.9) K/mcL BMP 12/20/16 12/20/16 01:38 16:07 Sodium 143 143 Potassium 4.0 4.1 Chloride 113 H 113 H Carbon Dioxide 23 23 BUN 8 6 L Creatinine 0.69 0.64 Glucose 91 83 Calcium 8.5 L 8.1 L - ABG Interpretation ABG results: PT/INR, D-dimer PT 11.9 Seconds (9.4-12.1) 12/19/16 17:13 - Attending Attestation I examined this patient and my medical decision-making was reviewed with the [facility]PITAL[facility] MANAGER/PA/Advanced Practice Nurse/Resident Physician. I agree with the documented findings, disposition and treatment plan as described except to the extent set forth below 41 Y/O F admitted for LGIB secondary to Colon AVMAngiodysplasias She also has a PMH of iron deficiency anemia and multiple past surgeries She is seen at bedside, no new complains, she still had BRB per rectum this a.m Physical exam is unremarkable, VSS Labs and Imaging reviewed: Hb low compared to baseline 8.4 this morning, no leukocytosis, PLT iis WNL, Chem is unremarkable, Coags WNL. Colonoscopy from with AVM. Iron studies with low iron . Abd CT unremarkable A/P: LGIB, hemodynamically stable, secondary to AVM Consult GI and Surgery, type and screen and transfuse prn Hb <8 Monitor closely rest as in resident's documentation
[2016-12-20 16:13] LABS: Hemoglobin 8.4 g/dL (11.5-15.4)
[2016-12-20 16:25] LABS: BUN/Creatinine Ratio 9 (6-26); Blood Urea Nitrogen 6 mg/dL (7-20); Calcium 8.1 mg/dL (8.6-10.8); Carbon Dioxide 23 mEq/L (19-29); Chloride 113 mEq/L (98-109); Glucose 83 mg/dL (70-99); Osmolality,Calculated 293 (280-300); Potassium 4.1 mEq/L (3.5-4.5); Sodium 143 mEq/L (136-145); eGFR For African Americans > 60 (> 60); eGFR For Non-African Americans > 60 (> 60)
[2016-12-20] MEDS ORDERED: *HR* Promethazine 25 MG/ML VIAL IVP PRN (20:10)
[2016-12-20 21:52] LABS: Hematocrit 25.9 % (35.3-44.9); Hemoglobin 8.1 g/dL (11.5-15.4)
[2016-12-21] MEDS ORDERED: Scopolamine Patch 1.5 MG PATCH.TD72 TD STA (00:52)
[2016-12-21] MEDS ORDERED: *HR* LORazepam 2 MG/ML VIAL IVP ONE (00:58)
[2016-12-21] MEDS: Metoclopramide 10 MG/2 ML VIAL IVP SCH ×2 (01:10→04:59)
[2016-12-21] MEDS: 0.9 % Sodium Chloride 1,000 ML IVC SCH ×3 (04:04→20:49)
[2016-12-21] MEDS: *HR* Promethazine 25 MG/ML VIAL IVP SCH ×4 (04:58→15:41)
[2016-12-21 05:41] LABS: Basophils % 0.4 %; Eosinophils # 0.1 K/mcL (0.0-0.6); Eosinophils % 0.6 %; Hematocrit 27.5 % (35.3-44.9); Hemoglobin 8.8 g/dL (11.5-15.4); Immature Granulocytes % 0.2 % (0-4); Lymphocytes # 1.3 K/mcL (0.6-4.6); Lymphocytes % 15.6 %; Mean Corpuscular Hemoglobin 28.7 pg (28.0-33.3); Mean Corpuscular Volume 89.6 fL (83.0-100.0); Monocytes # 0.4 K/mcL (0.0-1.3); Monocytes % 5.1 %; Neutrophils # 6.5 K/mcL (1.6-8.9); Platelet Count 192 K/mcL (140-400); Red Blood Count 3.07 M/mcL (3.82-4.97); Red Cell Distribution Width 14.2 % (11.5-14.5); Segmented Neutrophils % 78.1 %
[2016-12-21 05:54] LABS: BUN/Creatinine Ratio 8 (6-26); Calcium 8.2 mg/dL (8.6-10.8); Carbon Dioxide 21 mEq/L (19-29); Chloride 109 mEq/L (98-109); Glucose 96 mg/dL (70-99); Osmolality,Calculated 285 (280-300); Potassium 3.9 mEq/L (3.5-4.5); Sodium 139 mEq/L (136-145); eGFR For African Americans > 60 (> 60); eGFR For Non-African Americans > 60 (> 60)
[2016-12-21 06:00] LABS: Blood Urea Nitrogen 5 mg/dL (7-20)
[2016-12-21] MEDS ORDERED: cefOXitin 2,000 MG in D5% in Water (Mini-Bag+) 100 ML IVPB ONE ×2 (08:00→08:15)
[2016-12-21] MEDS: Pantoprazole 40 MG VIAL IVP SCH (08:05)
[2016-12-21] MEDS: Nicotine 14 MG PATCH.TD24 TD SCH (08:05)
[2016-12-21] MEDS: *HR* HYDROmorphone (PF) 1 MG/ML SYRINGE IVP PRN ×7 (08:40→23:04)
--- NOTE | 2016-12-21 09:16 | General Surgery Progress Note ---
Date of Encounter: 12/21/16 Time of Encounter: 09:05 - Assessment and Plan (1) Angiodysplasia of colon Current Visit: Yes Status: Acute The patient is having active bleeding from angiodysplasia of the right colon. She now presents for right hemicolectomy. She has completed antibiotic and mechanical bowel preparation in anticipation of right hemicolectomy. I discussed the risks and benefits with her she wishes to proceed. We will proceed with right hemicolectomy later today. Subjective Narrative: The patient is seen and evaluated. She underwent mechanical and antibiotic bowel prep in anticipation of right hemicolectomy. 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 I was asked to step into the endoscopy suite during her colonoscopy and I was able to visualize these personally which assisted in operative planning. She has bleeding requiring blood transfusion and now presents for right hemicolectomy for active bleeding. I discussed the risks and benefits of surgery with she understands and wishes to proceed and we will proceed with right hemicolectomy later today. Objective Vital Signs - Last 8 Hours Temp Pulse Resp BP Pulse Ox 12/21/16 08:05 98.4 F 93 16 96/62 96 12/21/16 04:00 98.7 F 92 16 114/77 97 Intake and Output 12/20/16 12/21/16 12/21/16 23:59 07:59 15:59 Intake Total 0 / 698 1000 / 1000 316 / 316 Output Total 0 / 0 0 / 0 Balance 0 / 698 1000 / 1000 316 / 316 Intake: IV Fluids 1000 / 1000 316 / 316 0.9 % Sodium Chloride 1, 1000 / 1000 316 / 316 000 ML @ 100 mls/hr IVC . Q10H NICK Rx#:[id number] Oral 0 / 0 0 / 0 Output: Urine 0 / 0 0 / 0 Other: # Voids 1 # Bowel Movements 1 Weight 60.1 kg Blood Glucose* 103 Patient Weight 12/21/16 23:59 Weight 60.1 kg - General physical appearance well developed, well nourished - Respiratory normal expansion, normal respiratory effort, clear to percussion, clear to auscultation - Cardiovascular Cardiovascular exam: Present: RRR, no murmurs/rubs/gallops - Abdomen Abdomen: Present: bowel sounds present, soft, non tender - Neurologic normal coordination, normal sensation - Psychiatric oriented to time, oriented to person, oriented to place, speech is normal, memory intact - Labs 12/21/16 05:00 12/21/16 05:00 Diabetes panel 12/21/16 Range/Units 05:00 Sodium 139 (136-145) mEq/L Potassium 3.9 (3.5-4.5) mEq/L Chloride 109 (98-109) mEq/L Carbon Dioxide 21 (19-29) mEq/L BUN 5 L (7-20) mg/dL Creatinine 0.63 (0.57-1.11) mg/dL Glucose 96 (70-99) mg/dL Calcium 8.2 L (8.6-10.8) mg/dL Calcium panel 12/21/16 Range/Units 05:00 Calcium 8.2 L (8.6-10.8) mg/dL Pituitary panel 12/21/16 Range/Units 05:00 Sodium 139 (136-145) mEq/L Potassium 3.9 (3.5-4.5) mEq/L Chloride 109 (98-109) mEq/L Carbon Dioxide 21 (19-29) mEq/L BUN 5 L (7-20) mg/dL Creatinine 0.63 (0.57-1.11) mg/dL Glucose 96 (70-99) mg/dL Calcium 8.2 L (8.6-10.8) mg/dL Adrenal panel 12/21/16 Range/Units 05:00 Sodium 139 (136-145) mEq/L Potassium 3.9 (3.5-4.5) mEq/L Chloride 109 (98-109) mEq/L Carbon Dioxide 21 (19-29) mEq/L BUN 5 L (7-20) mg/dL Creatinine 0.63 (0.57-1.11) mg/dL Glucose 96 (70-99) mg/dL Calcium 8.2 L (8.6-10.8) mg/dL - VTE Documentation of Mechanical Device: Graduated compression elastic hosiery Consult Discharge Plan - Plan Referrals: Kalie Hollingsworth [Advanced Practice Nurse] - 12/30/16 8:30 am
--- NOTE | 2016-12-21 09:34 | Internal Med Progress Note ---
<Terrence Welsh T - Last Filed: 12/21/16 13:56> - Constitutional Vitals: Temp Pulse Resp BP Pulse Ox 99.0 F 88 16 108/67 97 12/21/16 11:27 12/21/16 11:27 12/21/16 11:27 12/21/16 11:27 12/21/16 11:27 Internal Medicine: Result - Labs CBC & Chem 7: 12/21/16 05:00 12/21/16 05:00 Labs: Short CBC 12/20/16 12/21/16 Range/Units 21:29 05:00 WBC 8.3 (4.3-11.1) K/mcL Hgb 8.1 L 8.8 L (11.5-15.4) g/dL Hct 25.9 L 27.5 L (35.3-44.9) % Plt Count 192 (140-400) K/mcL Neutrophils # 6.5 (1.6-8.9) K/mcL BMP 12/21/16 05:00 Sodium 139 Potassium 3.9 Chloride 109 Carbon Dioxide 21 BUN 5 L Creatinine 0.63 Glucose 96 Calcium 8.2 L - ABG Interpretation ABG results: PT/INR, D-dimer PT 11.9 Seconds (9.4-12.1) 12/19/16 17:13 Consult Discharge Plan - Plan Referrals: Kalie Hollingsworth [Advanced Practice Nurse] - 12/30/16 8:30 am - Attending Attestation I examined this patient and my medical decision-making was reviewed with the PARTS CLERK [employer] MAINTENANCE/PA/Advanced Practice Nurse/Resident Physician. I agree with the documented findings, disposition and treatment plan as described except to the extent set forth below 41 Y/O F admitted for LGIB secondary to Colon AVM/Angiodysplasias She also has a PMH of iron deficiency anemia and multiple past surgeries She is seen at bedside, no new complains, awaiting surgery roday Physical exam is unremarkable, VSS Labs and Imaging reviewed: Hb low compared to baseline 8.4 this morning, no leukocytosis, PLT iis WNL, Chem is unremarkable, Coags WNL. Colonoscopy from with AVM. Iron studies with low iron . Abd CT unremarkable A/P: LGIB, hemodynamically stable, secondary to AVM For surgery today, blood loss anemia-Transfuse prn Hb <8 Monitor closely High risk due to emergent major surgery rest as in resident's documentation <Nadia Telles - Last Filed: 12/21/16 14:03> Date of Encounter: 12/21/16 Time of Encounter: 08:30 - Assessment and plan (1) Hematochezia Current Visit: Yes Status: Acute Assessment and plan: Patient with h/o of recurrent GI bleeding over past 6mo. Reports in past has resolved without treatment. She is a patient of Dr. Campos and had colonoscopy 2 days ago showing multiple AVM in the right colon that were not bleeding at the time of inspection. Per report right hemicolectomy was recommended. EGD showed no abnormalities. Patient presented to the ED yesterday after experiencing increasing RUQ abdominal pain and 2 episodes of loose stool with bright red blood noted in the toilet bowl. Patient denies dizziness, sob, palpitations, syncope. Denies alcohol/nsaid use. On exam RUQ tenderness and guarding noted. No rebound. CT abd/pelvis in the ED showed no acute abdominal/ pelivic disease. There was periportal edema noted. H/H on arrival was 9.8/28.6. Now 8.8/27.5. Orthostatic vitals negative. Suspect recurrent bleeding secondary to AVM noted on colonoscopy two days ago. Appears to be hemodynamically stable at this time. * Continue home med Protonix 40mg/day and hyocyamine * Zofran available PRN for nausea/vomiting * 1mg Dilaudid available for severe pain/ Tylenol 650mg available prn for mild- moderate pain. * Maintenance fluids (NS) running at 100cc/hr * Will continue to monitor vitals and H/h. * General surgery plans to have right hemicolectomy today. (2) Angiodysplasia of colon Current Visit: Yes Status: Acute Assessment and plan: See above. Patient with recent colonoscopy showing mild colonic spasm, multiple non-bleeding colonic angiodysplastic lesions, distal rectum and anal verge are normal on retroflexion view. (3) Anemia Current Visit: Yes Status: Chronic Assessment and plan: Patient with Hb 9.8 on arrival - 8.8 now. MCV normal at this time. Hb was 11.8 in September 2016. Likely secondary to recent episodes of hematochezia in the setting of iron deficiency anemia (as suggested by low iron and % saturation). Will continue to monitor hemodynamic status and H/h. Consider pRBC transfusion if Hb < 7 or patient becomes unstable. Qualifiers: Anemia type: iron deficiency Iron deficiency anemia type: chronic blood loss Qualified Code(s): D50.0 - Iron deficiency anemia secondary to blood loss (chronic) - Subjective Interval history: Patient was seen and examined this morning. Patient reports having abdominal pain and multiple episode of nausea & vomiting with yellow-green vomitus last night. But she just received pain medication so abdominal pain is better controlled now. Patient reports having some bowel movements last night but the bleeding seems to stop. Patient denies fever, chills, chest pain, nausea, vomiting, diarrhea at this time. - Constitutional Vitals: Temp Pulse Resp BP Pulse Ox 98.4 F 93 16 96/62 96 12/21/16 08:05 12/21/16 08:05 12/21/16 08:05 12/21/16 08:05 12/21/16 08:05 General appearance: Present: A&O X 3, pleasant, no acute distress, answers questions appropriately - Head Head exam: Present: atraumatic, normocephalic - Eye Eye exam: Present: PERRL, conjuntiva pink, sclera anicteric - Neck Neck exam general surgery: Present: supple, trachea midline. Absent: lymphadenopathy - Respiratory Respiratory exam: Present: CTAB. Absent: accessory muscle use, rales, rhonchi, wheezes - Cardiovascular Cardiovascular exam: Present: +S1, +S2, tachycardia. Absent: diastolic murmur, gallop, rubs, systolic murmur - GI/Abdominal GI/Abdominal exam: Present: normal bowel sounds, soft, tenderness (Right-sided) , no peritoneal signs. Absent: distended - Extremities Exam Extremities exam: Present: warm, radial pulses palpable and symetrical. Absent : calf tenderness, cyanotic, pedal edema - Neurological Exam Neurological exam: Present: CN II-XII intact, oriented X3, no focal deficits. Absent: pronater drift, facial droop, speech deficit - Skin Skin exam: Present: dry, intact. Absent: rash Internal Medicine: Result - Labs CBC & Chem 7: 12/21/16 05:00 12/21/16 05:00 Labs: Short CBC 12/20/16 12/21/16 Range/Units 21:29 05:00 WBC 8.3 (4.3-11.1) K/mcL Hgb 8.1 L 8.8 L (11.5-15.4) g/dL Hct 25.9 L 27.5 L (35.3-44.9) % Plt Count 192 (140-400) K/mcL Neutrophils # 6.5 (1.6-8.9) K/mcL BMP 12/21/16 05:00 Sodium 139 Potassium 3.9 Chloride 109 Carbon Dioxide 21 BUN 5 L Creatinine 0.63 Glucose 96 Calcium 8.2 L - ABG Interpretation ABG results: PT/INR, D-dimer PT 11.9 Seconds (9.4-12.1) 12/19/16 17:13 - VTE Documentation of Mechanical Device: Graduated compression elastic hosiery
[2016-12-21] MEDS: Ondansetron 4 MG/2 ML VIAL IVP PRN (11:31)
[2016-12-21] MEDS ORDERED: Albuterol 2.5 MG/3 ML NEBULIZER ONE (15:55)
--- NOTE | 2016-12-21 16:12 | Anesthesia Evaluation PreOp ---
Date of Encounter: 12/21/16 Time of Encounter: 16:15 - Past History Planned Operation: Exploratory Lap Cardiac History: Denies any Significant Hx, Other (Anemia) Pulmonary History: Smoker COMPANY LABORER History: Denies Any Significant HX Other Medical History: GERD, Other (Depression) Anesthesia History: No Prior Anesthetic Complications : No (Hysterectomy) Alcohol Use: none Drug use: none Medications and Allergies Hyoscyamine Sulfate [Hyoscyamine Sulfate ER] 0.375 mg PO BID 12/18/16 [History] Omeprazole [PriLOSEC] 40 mg PO DAILY 12/18/16 [History] Ondansetron ODT [Zofran ODT] 4 mg SL Q8H PRN 12/18/16 [History] Allergies fentanyl Allergy (Verified 12/07/16 16:26) Hives - Meds/Allergy Pre-op Review Medications Reviewed: Yes Allergies Reviewed: Yes Beta Blockers on Current Med List: No Anesthesia Results - Labs 12/21/16 05:00 12/21/16 05:00 Laboratory Tests 12/21/16 12/21/16 05:00 05:00 Hgb 8.8 L Hct 27.5 L Plt Count 192 Sodium 139 Potassium 3.9 BUN 5 L Creatinine 0.63 Anesthesia Exam O2 Sat Weight 60.1 kg O2 Sat by Pulse Oximetry 98 O2 Sat by Pulse Oximetry 97 O2 Sat by Pulse Oximetry 96 O2 Sat by Pulse Oximetry 97 O2 Sat by Pulse Oximetry 97 O2 Sat by Pulse Oximetry 100 Vital Signs Temp Pulse Resp BP Pulse Ox 97.9 F 102 14 143/72 96 12/19/16 16:45 12/19/16 16:45 12/19/16 16:45 12/19/16 16:45 12/19/16 16:45 Height: 5'4 Weight: 132 lbs NPO (# of Hours): MN Pain Scale: 0 - HEENT Pupil (Motor): Pupils equal, EOMI Mallampati: II Teeth: Normal Oral Opening: Greater than 3 - COMPANY LABORER LOC: Oriented COMPANY LABORER Motor: Normal RUE, Normal LUE, Normal RLE, Normal LLE, Normal Face COMPANY LABORER Sensory: Normal: RUE, LUE, RLE, LLE, Face - Cardiac Rhythm: Regular Murmur: None JVD: No Carotid Bruit: No - Pulmonary Breath Sounds: bilateral Clear Respiratory Effort: Symmetrical Anesthesia Assess/Plan ASA Score: 2 Modified [place] Scale for Level of Consciousness: Cooperative, oriented, and tranquil Anesthetic Plan: General Monitoring Plan: Standard Monitors Recovery Plan: PACU (Discussed GA, agrees to proceed)
[2016-12-21] MEDS ORDERED: *HR* FentaNYL (PF) 100 MCG/2 ML VIAL ONE (16:18)
[2016-12-21] MEDS ORDERED: *HR* Rocuronium Bromide 50 MG/5 ML VIAL ONE (16:19)
[2016-12-21] MEDS ORDERED: *HR* Propofol 200 MG/20 ML VIAL IVP ONE (16:19)
[2016-12-21] MEDS ORDERED: Dexamethasone 4 MG/ML VIAL ONE (16:19)
[2016-12-21] MEDS ORDERED: Lidocaine -MPF 2% 2 ML VIAL ONE (16:19)
[2016-12-21] MEDS ORDERED: Ondansetron 4 MG/2 ML VIAL ONE (16:19)
[2016-12-21] MEDS ORDERED: Acetaminophen IV 1,000 MG/100 ML INFUS..BTL ONE (16:26)
[2016-12-21] MEDS ORDERED: *HR* Midazolam HCl 2 MG/2 ML VIAL ONE (16:38)
[2016-12-21] MEDS ORDERED: CefOXitin 1,000 MG VIAL ONE (17:27)
[2016-12-21] MEDS ORDERED: Neostigmine Methylsulfate 3 MG/3 ML SYRINGE ONE (17:39)
[2016-12-21] MEDS ORDERED: Ondansetron 4 MG/2 ML VIAL IVP ONE (17:41)
[2016-12-21] MEDS ORDERED: *HR* HYDROmorphone 2 MG/ML SYRINGE ONE (17:43)
--- NOTE | 2016-12-21 17:57 | Operative Note ---
Date of procedure: 12/21/16 Pre-op diagnosis: Arteriovenous malformations right colon Post-op diagnosis: same Procedure: Right hemicolectomy Anesthesia: RHONDA Surgeon: Alec Berman Estimated blood loss (cc): 50 Specimen: Right colon Condition: stable Disposition: PACU Procedure in Detail: After informed consent the patient is taken to the major operative suite placed in the supine position and given adequate general anesthetic. The abdomen is prepped and draped in sterile fashion utilizing DuraPrep standard draping techniques. From taken patient was identified. I made a vertical midline incision around the umbilicus. I entered the abdomen. I was surprised to find a good deal of small bowel adhesions. Spent 20 minutes lysing small bowel adhesions. Once the small bowel was free was able to completely mobilize the right colon. I divided the ileum 4 cm proximal to the ileocecal valve with ARTEMIO. I divided the mid transverse colon 5 cm proximal to the middle colic artery. This is done with ARTEMIO. The hepatocolic ligament was divided with surgical clips and electrocautery. The right colon was totally mobilized off the duodenum and retroperitoneum. I divided the right colon mesocolon with clamps and hemostatic ligatures of 0 silk. The small bowel and colon were brought into approximation. ARTEMIO was used to create an antimesenteric anastomosis and the resulting enterotomy was closed with the TA 60. I circumferentially reinforced the anastomosis with interrupted 3-0 silk. This gave it excellent technical result. The abdomen was irrigated with to smells normal saline solution containing antibiotic. I closed the midline with looped 0 PDS. Skin was closed with interrupted Vicryl and skin clips. She tolerated the procedure very well. Transferred to recovery room in stable condition.
[2016-12-21] MEDS ORDERED: Ketorolac 30 MG/ML VIAL IM ONE (18:33)
--- NOTE | 2016-12-21 18:59 | Anesthesia Evaluation Post Op ---
Date of Encounter: 12/21/16 Time of Encounter: 19:00 - Vital Signs Vital Signs: Vital Signs/O2 Sat/Glucose, Most Current Temp Pulse Resp BP Pulse Ox 12/21/16 18:55 98.2 F 90 16 139/83 99 12/21/16 18:45 98.2 F 65 16 130/89 99 12/21/16 18:35 62 16 128/84 99 12/21/16 18:25 98.2 F 94 14 126/83 96 12/21/16 18:15 76 16 124/76 96 12/21/16 18:05 65 16 115/73 98 12/21/16 17:55 98.5 F 65 16 96/58 100 12/21/16 15:26 98.4 F 71 16 118/65 98 - Lungs Lungs: Clear Ascult./Percussion - Airway Airway: Non-obstructed - Cardiovascular Regular Rate - Mental Status Mental Status: Alert & Oriented, Answers Appropriately - Pain Pain Scale: 1 - Nausea Vomiting Nausea Vomiting: Not Present - Hydration Hydration: NPO - Discharge PostOp Status: Transfer Patient to floor
[2016-12-21] MEDS ORDERED: Naloxone 0.4 MG/ML INJ IVP PRN (19:10)
[2016-12-22] MEDS: cefOXitin 2,000 MG in D5% in Water (Mini-Bag+) 100 ML IVPB SCH ×2 (01:57→09:11)
[2016-12-22] MEDS: *HR* HYDROmorphone (PF) 1 MG/ML SYRINGE IVP PRN ×11 (02:02→22:40)
[2016-12-22 06:11] LABS: Basophils % 0.1 %; Immature Granulocytes % 0.4 % (0-4); Lymphocytes # 0.5 K/mcL (0.6-4.6); Lymphocytes % 4.7 %; Mean Corpuscular Hemoglobin 27.8 pg (28.0-33.3); Mean Corpuscular Volume 89.5 fL (83.0-100.0); Mean Platelet Volume 11.6 fL (9.4-12.4); Monocytes # 0.5 K/mcL (0.0-1.3); Monocytes % 4.6 %; Neutrophils # 10.1 K/mcL (1.6-8.9); Platelet Count 205 K/mcL (140-400); Red Blood Count 3.24 M/mcL (3.82-4.97); Red Cell Distribution Width 14.4 % (11.5-14.5); Segmented Neutrophils % 90.2 %
[2016-12-22 06:28] LABS: BUN/Creatinine Ratio 8 (6-26); Calcium 8.5 mg/dL (8.6-10.8); Carbon Dioxide 22 mEq/L (19-29); Chloride 106 mEq/L (98-109); Glucose 110 mg/dL (70-99); Osmolality,Calculated 286 (280-300); Potassium 4.3 mEq/L (3.5-4.5); Sodium 139 mEq/L (136-145); eGFR For African Americans > 60 (> 60); eGFR For Non-African Americans > 60 (> 60)
[2016-12-22 06:33] LABS: Blood Urea Nitrogen 5 mg/dL (7-20)
[2016-12-22] MEDS: Nicotine 14 MG PATCH.TD24 TD SCH (08:11)
[2016-12-22] MEDS: 0.9 % Sodium Chloride 1,000 ML IVC SCH ×2 (08:12→18:15)
[2016-12-22] MEDS: Pantoprazole 40 MG VIAL IVP SCH (08:16)
[2016-12-22] MEDS ORDERED: Chloraseptic Spray 177 ML BOTTLE MM PRN ×2 (09:10→10:50)
--- NOTE | 2016-12-22 11:32 | Internal Med Progress Note ---
<Nadia Telles - Last Filed: 12/22/16 11:30> Date of Encounter: 12/22/16 Time of Encounter: 09:30 - Assessment and plan (1) Angiodysplasia of colon Current Visit: Yes Status: Acute Assessment and plan: - H/o of recurrent GI bleeding over past 6 months and colonoscopy on 12/18 showed multiple non-bleeding AVM in the right colon. - CT abd/pelvis in the ED showed no acute abdominal/pelivic disease. There was periportal edema noted. - Status post right hemicolectomy on 12/21. - Continue home med Protonix 40mg/day and hyocyamine - Zofran PRN nausea/vomiting - Dilaudid PRN severe pain and Tylenol 650mg PRN mild-moderate pain. - IV Maintenance fluids (NS). - NPO except ice chips. May advance diet if patient passes gas and tolerates. - Continue to monitor vitals and H/H. - Appreciate genera surgery assistance on patient care. (2) Anemia Current Visit: Yes Status: Chronic Assessment and plan: - Hb 9.8 on initial presentation. - Likely secondary to recent episodes of hematochezia in the setting of iron deficiency anemia (as suggested by low iron and % saturation).. - Hgb stable at 9.0 today. - Continue to monitor hemodynamic status and H/h. Consider pRBC transfusion if Hb < 7 or patient becomes unstable. Qualifiers: Anemia type: iron deficiency Iron deficiency anemia type: chronic blood loss Qualified Code(s): D50.0 - Iron deficiency anemia secondary to blood loss (chronic) (3) DVT prophylaxis Current Visit: Yes Status: Acute Assessment and plan: - Continue calf-pump as mechanical DVT prophylaxis. - Subjective Interval history: Patient had right hemocolectomy yesterday. Patient was seen and examined this morning. Patient is currently on NG tube. She still has some abdominal pain mostly right-sided. Patient denies fever, chills, nausea, vomiting. She has no bowel movement yet but feels going to pass gas. - Constitutional Vitals: Temp Pulse Resp BP Pulse Ox 98.9 F 67 18 133/80 95 12/22/16 07:16 12/22/16 07:16 12/22/16 07:16 12/22/16 07:16 12/22/16 11:04 General appearance: Present: cooperative, A&O X 3, no acute distress, answers questions appropriately - Head Head exam: Present: atraumatic, normocephalic - Eye Eye exam: Present: PERRL, conjuntiva pink, sclera anicteric - Neck Neck exam general surgery: Present: supple, trachea midline. Absent: lymphadenopathy - Respiratory Respiratory exam: Present: CTAB. Absent: accessory muscle use, rales, rhonchi, wheezes - Cardiovascular Cardiovascular exam: Present: RRR, +S1, +S2. Absent: diastolic murmur, gallop, rubs, systolic murmur - GI/Abdominal GI/Abdominal exam: Present: normal bowel sounds, soft, tenderness (Mostly at right side.), no peritoneal signs. Absent: distended - Extremities Exam Extremities exam: Present: warm, radial pulses palpable and symetrical. Absent : calf tenderness, cyanotic, pedal edema - Neurological Exam Neurological exam: Present: CN II-XII intact, oriented X3, no focal deficits. Absent: pronater drift, facial droop, speech deficit - Skin Skin exam: Present: dry, intact. Absent: rash Internal Medicine: Result - Labs CBC & Chem 7: 12/22/16 05:43 12/22/16 05:43 Labs: Short CBC 12/22/16 Range/Units 05:43 WBC 11.3 H (4.3-11.1) K/mcL Hgb 9.0 L (11.5-15.4) g/dL Hct 29.0 L (35.3-44.9) % Plt Count 205 (140-400) K/mcL Neutrophils # 10.1 H (1.6-8.9) K/mcL BMP 12/22/16 05:43 Sodium 139 Potassium 4.3 Chloride 106 Carbon Dioxide 22 BUN 5 L Creatinine 0.63 Glucose 110 H Calcium 8.5 L - ABG Interpretation ABG results: PT/INR, D-dimer PT 11.9 Seconds (9.4-12.1) 12/19/16 17:13 - VTE Documentation of Mechanical Device: Intermittent pneumatic compression device Consult Discharge Plan - Plan Referrals: Kalie Hollingsworth [Advanced Practice Nurse] - 12/30/16 8:30 am <Terrence Welsh - Last Filed: 12/22/16 14:16> - Constitutional Vitals: Temp Pulse Resp BP Pulse Ox 98.2 F 74 18 135/77 93 L 12/22/16 11:33 12/22/16 11:33 12/22/16 11:33 12/22/16 11:33 12/22/16 11:33 Internal Medicine: Result - Labs CBC & Chem 7: 12/22/16 05:43 12/22/16 05:43 Labs: Short CBC 12/22/16 Range/Units 05:43 WBC 11.3 H (4.3-11.1) K/mcL Hgb 9.0 L (11.5-15.4) g/dL Hct 29.0 L (35.3-44.9) % Plt Count 205 (140-400) K/mcL Neutrophils # 10.1 H (1.6-8.9) K/mcL BMP 12/22/16 05:43 Sodium 139 Potassium 4.3 Chloride 106 Carbon Dioxide 22 BUN 5 L Creatinine 0.63 Glucose 110 H Calcium 8.5 L - ABG Interpretation ABG results: PT/INR, D-dimer PT 11.9 Seconds (9.4-12.1) 12/19/16 17:13 - Attending Attestation I examined this patient and my medical decision-making was reviewed with the PLATING FOREMAN/PA/Advanced Practice Nurse/Resident Physician. I agree with the documented findings, disposition and treatment plan as described except to the extent set forth below 41 Y/O F admitted for LGIB secondary to Colon AVM/Angiodysplasias She also has a PMH of iron deficiency anemia and multiple past surgeries She is seen at bedside, no new complains,POD 1 Physical exam is unremarkable, VSS, refused abdominal palpation Labs and Imaging reviewed: Hb stable A/P: LGIB, hemodynamically stable, secondary to AVM Stable post-op Continue pain control, NPO Rest of details as in resident's documentation
[2016-12-22] MEDS: Ondansetron 4 MG/2 ML VIAL IVP PRN (13:17)
--- NOTE | 2016-12-22 16:00 | General Surgery Progress Note ---
Date of Encounter: 12/22/16 Time of Encounter: 15:58 - Assessment and Plan (1) Angiodysplasia of colon with hemorrhage Current Visit: Yes Status: Acute Patient with recurrent hematochezia Recently 12/18/16 underwent colonoscopy which revealed: multiple large patchy angiodysplatic lesions without bleeding at the hepatic flexure and in the distal transverse colon It was recommended she obtain surgical referral for possible right hemicolectomy POD#1 Right hemicolectomy Patient tolerated the procedure well pain control IVF NS antiemetic, hyoscyamine NPO except ice chips, if no n/v may advance to clear liquids tomorrow NG for 24 hours incentive spirometry morning labs (2) Acute blood loss anemia Current Visit: Yes Status: Acute 2/2 colonic AVM with hematochezia Hgb 9.8 on admisssion. 9.0 today. Stable Type and screen has been done. 2 units PRBC ordered and pending transfusion if Hgb <7 Subjective Patient reports: still having pain, pain is less, no flatus, no bowel movement, nausea Narrative: Patient seen and examined. s/p right hemicolectomy 12/21/16. pt. tolerated the procedure well. Minor complaints of pain today. No bowel sounds. NG tube to remain in place for 24 hrs at least. Objective Vital Signs - Last 8 Hours Temp Pulse Resp BP Pulse Ox 12/22/16 15:29 97 12/22/16 15:09 99.1 F 91 15 136/79 97 12/22/16 11:33 98.2 F 74 18 135/77 93 L 12/22/16 11:04 95 Intake and Output 12/21/16 12/22/16 12/22/16 23:59 07:59 15:59 Intake Total 100 / 100 1100 / 1100 746 / 746 Output Total 420 / 420 0 / 0 Balance -320 / -320 1100 / 1100 746 / 746 Intake: IV Fluids 100 / 100 1100 / 1100 746 / 746 0.9 % Sodium Chloride 1, 1000 / 1000 546 / 546 000 ML @ 100 mls/hr IVC . Q10H [facility] Rx#:[id number] Mefoxin 2,000 MG In 100 / 100 Dextrose 5% (Minibag+) 100 ML 100 ML @ 200 mls/ hr IVPB PREOP ONE Rx#: [id number] Mefoxin 2,000 MG In 100 / 100 100 / 100 Dextrose 5% (Minibag+) 100 ML 100 ML @ 200 mls/ hr IVPB Q8H [facility] Rx#: [id number] Oral 0 / 0 0 / 0 0 / 0 Output: Urine 400 / 400 0 / 0 Estimated Blood Loss 20 / 20 Gastric Drainage 0 / 0 Other: Meal NPO NPO Percent of Meal Consumed 0% Weight 60.1 kg Blood Glucose* 109 99 Patient Weight 12/22/16 23:59 Weight 60.1 kg - General physical appearance well developed, well nourished, moderate pain - Eyes normal ocular movement - Incision Incision: Present: clean and dry, intact - Additional Exam - General physical appearance well developed, well nourished - Respiratory normal expansion, normal respiratory effort, clear to percussion, clear to auscultation - Cardiovascular Cardiovascular exam: Present: RRR, no murmurs/rubs/gallops - Abdomen Abdomen: Present: bowel sounds present, soft, non tender - Neurologic normal coordination, normal sensation - Psychiatric oriented to time, oriented to person, oriented to place, speech is normal, memory intact - Labs 12/23/16 05:37 12/22/16 05:43 Diabetes panel 12/22/16 Range/Units 05:43 Sodium 139 (136-145) mEq/L Potassium 4.3 (3.5-4.5) mEq/L Chloride 106 (98-109) mEq/L Carbon Dioxide 22 (19-29) mEq/L BUN 5 L (7-20) mg/dL Creatinine 0.63 (0.57-1.11) mg/dL Glucose 110 H (70-99) mg/dL Calcium 8.5 L (8.6-10.8) mg/dL Calcium panel 12/22/16 Range/Units 05:43 Calcium 8.5 L (8.6-10.8) mg/dL Pituitary panel 12/22/16 Range/Units 05:43 Sodium 139 (136-145) mEq/L Potassium 4.3 (3.5-4.5) mEq/L Chloride 106 (98-109) mEq/L Carbon Dioxide 22 (19-29) mEq/L BUN 5 L (7-20) mg/dL Creatinine 0.63 (0.57-1.11) mg/dL Glucose 110 H (70-99) mg/dL Calcium 8.5 L (8.6-10.8) mg/dL Adrenal panel 12/22/16 Range/Units 05:43 Sodium 139 (136-145) mEq/L Potassium 4.3 (3.5-4.5) mEq/L Chloride 106 (98-109) mEq/L Carbon Dioxide 22 (19-29) mEq/L BUN 5 L (7-20) mg/dL Creatinine 0.63 (0.57-1.11) mg/dL Glucose 110 H (70-99) mg/dL Calcium 8.5 L (8.6-10.8) mg/dL - VTE Documentation of Mechanical Device: Intermittent pneumatic compression device Consult Discharge Plan - Plan Referrals: Kalie Hollingsworth [Advanced Practice Nurse] - 12/30/16 8:30 am - Attending Attestation I examined this patient and my medical decision-making was reviewed with the USER EXPERIENCE TEAM LEAD/PA/Advanced Practice Nurse/Resident Physician. I agree with the documented findings, disposition and treatment plan as described except to the extent set forth below. The patient is seen with the resident on morning rounds. She is doing quite well on postoperative day 1 from right hemicolectomy. She has no bowel sounds. This is an expected postoperative ileus. We will continue hydration and supportive care as well as pain control. She is to ambulate today. Alec Berman MD FACS
[2016-12-22] MEDS: *HR* Heparin 5,000 UNIT/ML VIAL SQ SCH (18:10)
[2016-12-23] MEDS: *HR* HYDROmorphone (PF) 1 MG/ML SYRINGE IVP PRN ×10 (00:49→21:40)
[2016-12-23] MEDS: 0.9 % Sodium Chloride 1,000 ML IVC SCH ×2 (04:19→17:34)
[2016-12-23 06:07] LABS: Basophils % 0.2 %; Eosinophils % 0.3 %; Hematocrit 25.4 % (35.3-44.9); Hemoglobin 8.3 g/dL (11.5-15.4); Immature Granulocytes % 0.3 % (0-4); Lymphocytes # 1.5 K/mcL (0.6-4.6); Lymphocytes % 16.9 %; Mean Corpuscular HGB Conc 32.7 g/dL (31.6-35.5); Mean Corpuscular Hemoglobin 29.3 pg (28.0-33.3); Mean Corpuscular Volume 89.8 fL (83.0-100.0); Mean Platelet Volume 11.9 fL (9.4-12.4); Monocytes # 0.8 K/mcL (0.0-1.3); Monocytes % 8.4 %; Neutrophils # 6.6 K/mcL (1.6-8.9); Platelet Count 170 K/mcL (140-400); Red Blood Count 2.83 M/mcL (3.82-4.97); Red Cell Distribution Width 14.7 % (11.5-14.5); Segmented Neutrophils % 73.9 %
[2016-12-23] MEDS: *HR* Heparin 5,000 UNIT/ML VIAL SQ SCH ×2 (06:33→17:36)
[2016-12-23] MEDS: Ondansetron 4 MG/2 ML VIAL IVP PRN (06:37)
[2016-12-23] MEDS: Pantoprazole 40 MG VIAL IVP SCH (09:32)
[2016-12-23] MEDS: Nicotine 14 MG PATCH.TD24 TD SCH (09:33)
--- NOTE | 2016-12-23 10:16 | General Surgery Progress Note ---
Date of Encounter: 12/23/16 Time of Encounter: 10:12 - Assessment and Plan (1) Angiodysplasia of colon with hemorrhage Current Visit: Yes Status: Acute Patient with recurrent hematochezia Recently 12/18/16 underwent colonoscopy which revealed: multiple large patchy angiodysplatic lesions without bleeding at the hepatic flexure and in the distal transverse colon It was recommended she obtain surgical referral for possible right hemicolectomy POD#2 Right hemicolectomy Having expected post-op ileus. no bowel sounds, flatus, or bm yet. Continue NG Ambulate pain control IVF NS antiemetic, hyoscyamine NPO except ice chips, if no n/v may advance to clear liquids tomorrow incentive spirometry morning labs (2) Acute blood loss anemia Current Visit: Yes Status: Acute 2/2 colonic AVM with hematochezia Hgb 9.8 on admisssion. 8.3 today. Type and screen has been done. 2 units PRBC ordered and pending transfusion if Hgb <7 Subjective Patient reports: feels better, still having pain, no flatus, no bowel movement Narrative: Patient seen and examined. Still having expected post-op pain, but it is well- controlled with pain medicine. She has not had any flatus or BM, but this is from an expected post-op ileus. Ng in place with 320 ml out last 24 hrs. Denies nausea. Afebrile. Objective Vital Signs - Last 8 Hours Temp Pulse Resp BP Pulse Ox 12/23/16 08:27 130/72 12/23/16 08:02 98.8 F 90 18 95 12/23/16 04:08 97.7 F 81 16 130/73 97 Intake and Output 12/22/16 12/23/16 12/23/16 23:59 07:59 15:59 Intake Total 454 / 454 1000 / 1000 250 / 250 Output Total 530 / 530 970 / 970 150 / 150 Balance -76 / -76 30 / 30 100 / 100 Intake: IV Fluids 454 / 454 1000 / 1000 0.9 % Sodium Chloride 1, 454 / 454 1000 / 1000 000 ML @ 100 mls/hr IVC . Q10H [facility] Rx#:[id number] Oral 0 / 0 0 / 0 250 / 250 Output: Urine 0 / 0 650 / 650 0 / 0 Gastric Tube Lavage 320 / 320 Amount Left Nare 320 / 320 Gastric Drainage 530 / 530 150 / 150 Other: Meal NPO for dinner NPO Percent of Meal Consumed 0% # Voids 3 1 Blood Glucose* 86 75 - Additional Exam - General physical appearance well developed, well nourished, moderate pain - Eyes normal ocular movement - Incision Incision: Present: clean and dry, intact - Additional Exam - General physical appearance well developed, well nourished - Respiratory normal expansion, normal respiratory effort, clear to percussion, clear to auscultation - Cardiovascular Cardiovascular exam: Present: RRR, no murmurs/rubs/gallops - Abdomen Abdomen: Present: bowel sounds present, soft, non tender - Neurologic normal coordination, normal sensation - Psychiatric oriented to time, oriented to person, oriented to place, speech is normal, memory intact - Labs 12/23/16 05:37 12/22/16 05:43 - VTE Documentation of Mechanical Device: Intermittent pneumatic compression device Consult Discharge Plan - Plan Referrals: Kalie Hollingsworth [Advanced Practice Nurse] - 12/30/16 8:30 am - Attending Attestation I examined this patient and my medical decision-making was reviewed with the CORDWOOD CUTTER HELPER/PA/Advanced Practice Nurse/Resident Physician. I agree with the documented findings, disposition and treatment plan as described except to the extent set forth below. The patient is seen and evaluated with the resident on morning rounds. She continues to have no bowel sounds and no flatus or bowel movement. The nasogastric tube drainage is fairly high. We will maintain the nasogastric tube for now. It appears as though she has an expected postoperative ileus. Alec Berman MD FACS
--- NOTE | 2016-12-23 10:17 | Internal Med Progress Note ---
<Nadia Telles - Last Filed: 12/23/16 15:01> Date of Encounter: 12/23/16 Time of Encounter: 10:15 - Assessment and plan (1) Angiodysplasia of colon Current Visit: Yes Status: Acute Assessment and plan: - H/o of recurrent GI bleeding over past 6 months and colonoscopy on 12/18 showing multiple non-bleeding AVM in the right colon. - CT abd/pelvis in the ED showed no acute abdominal/pelivic disease. There was periportal edema noted. - Status post right hemicolectomy on 12/21 (POD#2) - Continues to have some nausea/RUQ abdominal pain. No peritoneal signs. Dressing clean and dry. No sign of infection. - Continue home med Protonix 40mg/day and hyocyamine - Zofran PRN nausea/vomiting - Dilaudid PRN severe pain and Tylenol 650mg PRN mild-moderate pain. - IV Maintenance fluids (NS). - NPO except ice chips. May advance diet to clear liquids if patient passes gas. - Continue to monitor vitals and H/H. (2) Anemia Current Visit: Yes Status: Chronic Assessment and plan: - Hb 9.8 on initial presentation. - Likely secondary to recent episodes of hematochezia in the setting of iron deficiency anemia (as suggested by low iron and % saturation) - Hgb stable at 8.3 today. - Continue to monitor hemodynamic status and H/h. Consider pRBC transfusion if Hb < 7 or patient becomes unstable. 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 Will continue to monitor for signs of bleeding. - Subjective Interval history: I have seen and examined the patient today. POD2. Reports continued abdominal pain mostly RUQ. Has been nauseas off and on, decreased with zofran. Has not passed gas. Denies chills, sweats, sob, cp, vomiting, or any other complaints at this time. - Constitutional Vitals: Temp Pulse Resp BP Pulse Ox 98.8 F 90 18 130/72 95 12/23/16 08:02 12/23/16 08:02 12/23/16 08:02 12/23/16 08:27 12/23/16 08:02 General appearance: Present: cooperative, A&O X 3, no acute distress, answers questions appropriately - Head Head exam: Present: atraumatic, normocephalic - Eye Eye exam: Present: PERRL, conjuntiva pink, sclera anicteric - Neck Neck exam general surgery: Present: supple, trachea midline. Absent: lymphadenopathy - Respiratory Respiratory exam: Present: CTAB. Absent: accessory muscle use, rales, rhonchi, wheezes - Cardiovascular Cardiovascular exam: Present: RRR, +S1, +S2. Absent: diastolic murmur, gallop, rubs, systolic murmur - GI/Abdominal GI/Abdominal exam: Present: hypoactive bowel sounds (absent), soft, tenderness (RUQ/midline over incision), no peritoneal signs. Absent: distended , guarding Additional comments: Midline incision clean and dry. Does not appear infected. Minimal redness, no discharge, no warmth. - Extremities Exam Extremities exam: Present: warm, radial pulses palpable and symetrical. Absent : calf tenderness, cyanotic, pedal edema - Neurological Exam Neurological exam: Present: CN II-XII intact, oriented X3, no focal deficits. Absent: pronater drift, facial droop, speech deficit - Skin Skin exam: Present: dry, intact Internal Medicine: Result - Labs CBC & Chem 7: 12/23/16 05:37 12/22/16 05:43 Labs: Short CBC 12/23/16 Range/Units 05:37 WBC 8.9 (4.3-11.1) K/mcL Hgb 8.3 L (11.5-15.4) g/dL Hct 25.4 L (35.3-44.9) % Plt Count 170 (140-400) K/mcL Neutrophils # 6.6 (1.6-8.9) K/mcL - ABG Interpretation ABG results: PT/INR, D-dimer PT 11.9 Seconds (9.4-12.1) 12/19/16 17:13 - VTE Documentation of Mechanical Device: Intermittent pneumatic compression device Consult Discharge Plan - Plan Referrals: Kalie Hollingsworth [Advanced Practice Nurse] - 12/30/16 8:30 am <Terrence Welsh T - Last Filed: 12/23/16 17:17> - Constitutional Vitals: Temp Pulse Resp BP Pulse Ox 98.4 F 69 18 133/76 93 L 12/23/16 15:17 12/23/16 15:17 12/23/16 15:17 12/23/16 15:17 12/23/16 15:17 Internal Medicine: Result - Labs CBC & Chem 7: 12/23/16 05:37 12/22/16 05:43 Labs: Short CBC 12/23/16 Range/Units 05:37 WBC 8.9 (4.3-11.1) K/mcL Hgb 8.3 L (11.5-15.4) g/dL Hct 25.4 L (35.3-44.9) % Plt Count 170 (140-400) K/mcL Neutrophils # 6.6 (1.6-8.9) K/mcL - ABG Interpretation ABG results: PT/INR, D-dimer PT 11.9 Seconds (9.4-12.1) 12/19/16 17:13 - Attending Attestation I examined this patient and my medical decision-making was reviewed with the ROUGH RICE GRADER/PA/Advanced Practice Nurse/Resident Physician. I agree with the documented findings, disposition and treatment plan as described except to the extent set forth below. 41 Y/O F with LGIB secondary to AVM of colon, s/p hemicolectomy POD 2 seen at bedside, not in distress, stable, abdomen with clean wound dressing, bowel sounds are present, chest is clear Labs and imaging reviewed: Hb is stable Continue current care. Gen.Surg on board, rest of details as in resident's documentation
[2016-12-23] MEDS: Hyoscyamine 0.5 MG/ML MLS IVP PRN (13:24)
[2016-12-23] MEDS: Ketorolac 15 MG/ML VIAL IVP SCH (17:35)
[2016-12-24] MEDS: Ketorolac 15 MG/ML VIAL IVP SCH ×2 (00:10→06:43)
[2016-12-24] MEDS: *HR* HYDROmorphone (PF) 1 MG/ML SYRINGE IVP PRN ×6 (01:29→20:32)
[2016-12-24] MEDS: 0.9 % Sodium Chloride 1,000 ML IVC SCH ×3 (03:55→17:18)
[2016-12-24] MEDS ORDERED: D5% in 0.9% NACL 1,000 ML IVC SCH (06:30)
[2016-12-24] MEDS: *HR* Heparin 5,000 UNIT/ML VIAL SQ SCH ×2 (06:43→17:53)
--- NOTE | 2016-12-24 07:25 | General Surgery Progress Note ---
Date of Encounter: 12/24/16 Time of Encounter: 07:10 - Assessment and Plan (1) Angiodysplasia of colon with hemorrhage Current Visit: Yes Status: Acute Patient with recurrent hematochezia Recently 12/18/16 underwent colonoscopy which revealed: multiple large patchy angiodysplatic lesions without bleeding at the hepatic flexure and in the distal transverse colon It was recommended she obtain surgical referral for possible right hemicolectomy POD#2 Right hemicolectomy Having expected post-op ileus. no bowel sounds, flatus, or bm yet. Continue NG Ambulate pain control IVF NS antiemetic, hyoscyamine NPO except ice chips, if no n/v may advance to clear liquids tomorrow incentive spirometry morning labs December 24 2016. 07 The patient is doing quite well today her pain control is excellent. She has bowel sounds and flatus. The nasogastric tube will be removed and she will be started on volume restricted clear liquids. (2) Acute blood loss anemia Current Visit: Yes Status: Acute 2/2 colonic AVM with hematochezia Hgb 9.8 on admisssion. 8.3 today. Type and screen has been done. 2 units PRBC ordered and pending transfusion if Hgb <7 Subjective Narrative: The patient had flatus and is having bowel sounds. Her pain control is excellent. We will plan on removing the nasogastric tube today and starting her on warfarin restricted clear liquids. Objective Vital Signs - Last 8 Hours Temp Pulse Resp BP Pulse Ox 12/24/16 06:42 97.6 F 78 18 118/72 97 12/24/16 03:56 98.2 F 90 18 134/76 98 12/24/16 00:34 98.4 F 81 18 123/72 96 Intake and Output 12/23/16 12/23/16 12/24/16 15:59 23:59 07:59 Intake Total 1250 / 1250 0 / 0 1200 / 1200 Output Total 150 / 150 1999 / 1999 1900 / 1900 Balance 1100 / 1100 -1999 / -1999 -700 / -700 Intake: IV Fluids 1000 / 1000 1200 / 1200 0.9 % Sodium Chloride 1, 1000 / 1000 1200 / 1200 000 ML @ 100 mls/hr IVC . Q10H [facility] Rx#:[id number] Oral 250 / 250 0 / 0 0 / 0 Output: Urine 0 / 0 1100 / 1100 800 / 800 Gastric Drainage 150 / 150 900 / 900 1100 / 1100 Other: Meal NPO npo # Voids 1 Weight 60.1 kg Blood Glucose* 69 98 61 Patient Weight 12/24/16 23:59 Weight 60.1 kg - General physical appearance well developed, well nourished - Respiratory normal expansion, normal respiratory effort, clear to percussion, clear to auscultation - Cardiovascular Cardiovascular exam: Present: RRR, no murmurs/rubs/gallops - Abdomen Abdomen: Present: bowel sounds present - Incision Incision: Present: clean and dry - Psychiatric oriented to time, oriented to person, oriented to place, speech is normal, memory intact - Labs 12/23/16 05:37 12/22/16 05:43 - VTE Documentation of Mechanical Device: Intermittent pneumatic compression device Consult Discharge Plan - Plan Referrals: Kalie Hollingsworth [Advanced Practice Nurse] - 12/30/16 8:30 am
[2016-12-24 07:28] LABS: Basophils % 0.3 %; Eosinophils # 0.1 K/mcL (0.0-0.6); Eosinophils % 1.9 %; Hematocrit 28.1 % (35.3-44.9); Immature Granulocytes % 0.6 % (0-4); Lymphocytes # 0.9 K/mcL (0.6-4.6); Lymphocytes % 14.8 %; Mean Corpuscular Hemoglobin 28.8 pg (28.0-33.3); Mean Corpuscular Volume 90.1 fL (83.0-100.0); Mean Platelet Volume 11.5 fL (9.4-12.4); Monocytes # 0.6 K/mcL (0.0-1.3); Monocytes % 9.1 %; Neutrophils # 4.7 K/mcL (1.6-8.9); Platelet Count 188 K/mcL (140-400); Red Blood Count 3.12 M/mcL (3.82-4.97); Red Cell Distribution Width 14.6 % (11.5-14.5); Segmented Neutrophils % 73.3 %
[2016-12-24 07:45] LABS: BUN/Creatinine Ratio 13 (6-26); Blood Urea Nitrogen 8 mg/dL (7-20); Calcium 8.6 mg/dL (8.6-10.8); Carbon Dioxide 18 mEq/L (19-29); Chloride 108 mEq/L (98-109); Glucose 62 mg/dL (70-99); Osmolality,Calculated 286 (280-300); Potassium 3.7 mEq/L (3.5-4.5); Sodium 140 mEq/L (136-145); eGFR For African Americans > 60 (> 60); eGFR For Non-African Americans > 60 (> 60)
[2016-12-24] MEDS: Pantoprazole 40 MG VIAL IVP SCH (07:56)
[2016-12-24] MEDS: Nicotine 14 MG PATCH.TD24 TD SCH (07:56)
--- NOTE | 2016-12-24 09:30 | Internal Med Progress Note ---
<Nadia Telles - Last Filed: 12/24/16 15:40> Date of Encounter: 12/24/16 Time of Encounter: 09:28 - Assessment and plan (1) Acute GI bleeding Current Visit: Yes Status: Acute Assessment and plan: secondary to angiodysplasia of colon. resolved. (2) Hypoglycemia Current Visit: Yes Status: Acute Assessment and plan: episode of hypoglycemia due to no oral intake for the past 5 days. accucheck was 62. received D5NS at 100 ml/hr overnight. pt ate breakfast and had no issues. stop IV D5. continue accucheck q6hr. (3) Angiodysplasia of colon Current Visit: Yes Status: Acute Assessment and plan: - H/o of recurrent GI bleeding over past 6 months and colonoscopy on 12/18 showing multiple non-bleeding AVM in the right colon. - CT abd/pelvis in the ED showed no acute abdominal/pelivic disease. There was periportal edema noted. given recurrent and persistent rectal bleeding, pt underwent right hemicolectomy. - Status post right hemicolectomy on 12/21 (POD#3) - Abdominal pain better today. No peritoneal signs. Dressing clean and dry. No sign of infection. - Continue home med Protonix 40mg/day and hyocyamine - Zofran PRN nausea/vomiting - Dilaudid PRN severe pain, scheduled Ketorolac [id number]. Will transition to PO pain medication today. [place] 7.5 ordered PRN. - IV Maintenance fluids 50cc/hr. Will d/c if continues to tolerate PO. - Passed gas today, Will advance diet to clear liquids. (4) Anemia Current Visit: Yes Status: Chronic Assessment and plan: acute on chronic blood loss anemia secondary to GI bleed. - Hb 9.8 on initial presentation. - Likely secondary to recent episodes of hematochezia in the setting of iron deficiency anemia (as suggested by low iron and % saturation) - Hgb stable at 9.0 today. pt hemodynamically stable. - Continue to monitor hemodynamic status and H/h. Consider pRBC transfusion if Hb < 7 or patient becomes unstable. Qualifiers: Anemia type: iron deficiency Iron deficiency anemia type: chronic blood loss Qualified Code(s): D50.0 - Iron deficiency anemia secondary to blood loss (chronic) (5) DVT prophylaxis Current Visit: Yes Status: Acute Assessment and plan: Patient on 5,000SQ Heparin BID. Will continue to monitor for signs of bleeding. - Subjective Interval history: I have seen and examined the patient today. POD3. Reports her abdominal pain has improved. She still has pain when she ambulates from her bed to the restroom. Nausea has resolved. Patient has passed gas this AM. Denies chills, sweats, sob, cp, vomiting, or any other complaints at this time. - Constitutional Vitals: Temp Pulse Resp BP Pulse Ox 97.6 F 78 18 118/72 97 12/24/16 06:42 12/24/16 06:42 12/24/16 06:42 12/24/16 06:42 12/24/16 06:42 General appearance: Present: cooperative, A&O X 3, no acute distress, answers questions appropriately - Head Head exam: Present: atraumatic, normocephalic - Eye Eye exam: Present: PERRL, conjuntiva pink, sclera anicteric Pupils: Present: PERRL - Neck Neck exam general surgery: Present: supple, trachea midline. Absent: lymphadenopathy - Respiratory Respiratory exam: Present: CTAB. Absent: accessory muscle use, rales, rhonchi, wheezes - Cardiovascular Cardiovascular exam: Present: RRR, +S1, +S2. Absent: diastolic murmur, gallop, rubs, systolic murmur - GI/Abdominal GI/Abdominal exam: Present: normal bowel sounds, soft, tenderness (mild tenderness in RUQ/RLQ), no peritoneal signs. Absent: distended Additional comments: Surgical incision midline. Does not appear infected. No redness. No drainage. No warmth. Mild tenderness to palpation. - Extremities Exam Extremities exam: Present: warm, radial pulses palpable and symetrical. Absent : calf tenderness, cyanotic, pedal edema - Neurological Exam Neurological exam: Present: CN II-XII intact, oriented X3, no focal deficits. Absent: pronater drift, facial droop, speech deficit - Skin Skin exam: Present: dry, intact Internal Medicine: Result - Labs CBC & Chem 7: 12/24/16 06:55 12/24/16 06:55 Labs: Short CBC 12/24/16 Range/Units 06:55 WBC 6.4 (4.3-11.1) K/mcL Hgb 9.0 L (11.5-15.4) g/dL Hct 28.1 L (35.3-44.9) % Plt Count 188 (140-400) K/mcL Neutrophils # 4.7 (1.6-8.9) K/mcL [facility] 12/24/16 06:55 Sodium 140 Potassium 3.7 Chloride 108 Carbon Dioxide 18 L BUN 8 Creatinine 0.60 Glucose 62 L Calcium 8.6 - ABG Interpretation ABG results: PT/INR, D-dimer PT 11.9 Seconds (9.4-12.1) 12/19/16 17:13 - VTE Documentation of Mechanical Device: Intermittent pneumatic compression device Consult Discharge Plan - Plan Referrals: Kalie Hollingsworth [Advanced Practice Nurse] - 12/30/16 8:30 am <Tony-Maura Teixeira - Last Filed: 12/24/16 19:11> - Constitutional Vitals: Temp Pulse Resp BP Pulse Ox 98.1 F 79 18 119/74 97 12/24/16 15:18 12/24/16 15:18 12/24/16 15:18 12/24/16 15:18 12/24/16 06:42 Internal Medicine: Result - Labs CBC & Chem 7: 12/24/16 06:55 12/24/16 06:55 Labs: Short CBC 12/24/16 Range/Units 06:55 WBC 6.4 (4.3-11.1) K/mcL Hgb 9.0 L (11.5-15.4) g/dL Hct 28.1 L (35.3-44.9) % Plt Count 188 (140-400) K/mcL Neutrophils # 4.7 (1.6-8.9) K/mcL [facility] 12/24/16 06:55 Sodium 140 Potassium 3.7 Chloride 108 Carbon Dioxide 18 L BUN 8 Creatinine 0.60 Glucose 62 L Calcium 8.6 - ABG Interpretation ABG results: PT/INR, D-dimer PT 11.9 Seconds (9.4-12.1) 12/19/16 17:13 - Attending Attestation I examined this patient and reviewed laboratory, imaging and all diagnostic data. My medical decision-making was reviewed with Dr Telles - Resident Physician. I agree with the documented findings, disposition and treatment plan as described above.
[2016-12-24] MEDS ORDERED: *HR* HYDROmorphone (PF) 1 MG/ML SYRINGE IVP PRN ×2 (11:19→15:58)
[2016-12-24] MEDS: *HR* HYDROcodone/Acet 7.5/325 mg TABLET PO PRN ×2 (11:57→15:45)
[2016-12-24] MEDS: Ondansetron 4 MG/2 ML VIAL IVP PRN (15:48)
[2016-12-24] MEDS: Hyoscyamine 0.5 MG/ML MLS IVP PRN (15:49)
[2016-12-24] MEDS ORDERED: *HR* HYDROmorphone (PF) 1 MG/ML SYRINGE ONE (16:34)
[2016-12-24] MEDS: *HR* OxyCODONE/APAP 10/325 TABLET PO PRN (17:58)
[2016-12-25] MEDS: *HR* HYDROmorphone (PF) 1 MG/ML SYRINGE IVP PRN ×4 (03:23→20:36)
[2016-12-25] MEDS: *HR* OxyCODONE/APAP 10/325 TABLET PO PRN ×3 (04:36→19:10)
[2016-12-25] MEDS: *HR* Heparin 5,000 UNIT/ML VIAL SQ SCH ×2 (05:39→19:15)
[2016-12-25 06:51] LABS: Basophils % 0.3 %; Eosinophils # 0.3 K/mcL (0.0-0.6); Eosinophils % 4.6 %; Hematocrit 25.6 % (35.3-44.9); Hemoglobin 8.4 g/dL (11.5-15.4); Immature Granulocytes % 0.2 % (0-4); Lymphocytes # 1.3 K/mcL (0.6-4.6); Lymphocytes % 22.2 %; Mean Corpuscular HGB Conc 32.8 g/dL (31.6-35.5); Mean Corpuscular Hemoglobin 28.9 pg (28.0-33.3); Mean Platelet Volume 11.6 fL (9.4-12.4); Monocytes # 0.5 K/mcL (0.0-1.3); Monocytes % 8.1 %; Neutrophils # 3.9 K/mcL (1.6-8.9); Platelet Count 187 K/mcL (140-400); Red Blood Count 2.91 M/mcL (3.82-4.97); Red Cell Distribution Width 14.4 % (11.5-14.5); Segmented Neutrophils % 64.6 %
[2016-12-25] MEDS: Nicotine 14 MG PATCH.TD24 TD SCH (09:25)
--- NOTE | 2016-12-25 11:54 | General Surgery Progress Note ---
Date of Encounter: 12/25/16 Time of Encounter: 11:50 - Assessment and Plan (1) Angiodysplasia of colon with hemorrhage Current Visit: Yes Status: Acute Patient with recurrent hematochezia Recently 12/18/16 underwent colonoscopy which revealed: multiple large patchy angiodysplatic lesions without bleeding at the hepatic flexure and in the distal transverse colon It was recommended she obtain surgical referral for possible right hemicolectomy POD#4 Right hemicolectomy Having bowel sounds and flatus. no bm yet. Will advance feeds to full liquids. If she tolerates well will advance to regular diet in AM and if she tolerates that will discharge home tomorrow 12/26/16 Ambulate pain control IVF NS antiemetic, hyoscyamine incentive spirometry (2) Acute blood loss anemia Current Visit: Yes Status: Acute 2/2 colonic AVM with hematochezia Hgb 9.8 on admisssion. 8.3 today. Type and screen has been done. 2 units PRBC ordered and pending transfusion if Hgb <7 Subjective Patient reports: feels better, pain is less, tolerating liquids well, flatus, no bowel movement, afebrile Narrative: Patient seen and examined. No events overnight. Pain is well-controlled. + bowel sounds and +flatus, but no BM. Objective Intake and Output 12/24/16 12/25/16 12/25/16 23:59 07:59 15:59 Intake Total 700 / 700 Output Total 300 / 300 Balance 400 / 400 Intake: Oral 700 / 700 Output: Urine 300 / 300 Other: Meal Dinner Blood Glucose* 82 - Additional Exam - General physical appearance well developed, well nourished - Respiratory normal expansion, normal respiratory effort, clear to percussion, clear to auscultation - Cardiovascular Cardiovascular exam: Present: RRR, no murmurs/rubs/gallops - Abdomen Abdomen: Present: bowel sounds present - Incision Incision: Present: clean and dry - Psychiatric oriented to time, oriented to person, oriented to place, speech is normal, memory intact - Labs 12/25/16 06:38 12/24/16 06:55 - VTE Documentation of Mechanical Device: Intermittent pneumatic compression device Consult Discharge Plan - Plan Referrals: Kalie Hollingsworth [Advanced Practice Nurse] - 12/30/16 8:30 am - Attending Attestation I examined this patient and my medical decision-making was reviewed with the SERVICE WRITER ADVISOR/PA/Advanced Practice Nurse/Resident Physician. I agree with the documented findings, disposition and treatment plan as described except to the extent set forth below. The patient is seen and evaluated with the resident on morning rounds. She is feeling much better. She is having flatus we will advance her diet today. She will likely be discharged tomorrow
--- NOTE | 2016-12-25 14:21 | Internal Med Progress Note ---
<Nadia Telles - Last Filed: 12/25/16 17:15> Date of Encounter: 12/25/16 Time of Encounter: 09:45 - Assessment and plan (1) Angiodysplasia of colon Current Visit: Yes Status: Acute Assessment and plan: - H/o of recurrent GI bleeding over past 6 months and colonoscopy on 12/18 showing multiple non-bleeding AVM in the right colon. - CT abd/pelvis in the ED showed no acute abdominal/pelivic disease. There was periportal edema noted. - Given recurrent and persistent rectal bleeding, pt underwent right hemicolectomy. - Status post right hemicolectomy on 12/21 (POD#4) - Abdominal pain better today. No peritoneal signs. Dressing clean and dry. No sign of infection. - Continue home med Protonix 40mg/day and hyocyamine - Zofran PRN nausea/vomiting - Pain control with Dilaudid 0.5 mg IV PRN severe pain and Percocet 10/325 1 tab PO q6H prn severe pain. . - IV Maintenance fluids 60cc/hr. Will d/c if continues to tolerate PO. - Diet is advanced to full liquid per surgery recommendation. Possible discharge tomorrow if patient can tolerate it. (2) Hypoglycemia Current Visit: Yes Status: Acute Assessment and plan: - Episode of hypoglycemia due to no oral intake for several 5 days. - Improves today as patient resuming diet and her POC glucose this moring at 101. - Continue to monitor. (3) Acute GI bleeding Current Visit: Yes Status: Resolved Assessment and plan: - With Hgb 9.8 (baseline > 11) on admission with reported hematochezia. - Secondary to angiodysplasia of colon. - Resolved. (4) Anemia Current Visit: Yes Status: Chronic Assessment and plan: - Acute on chronic blood loss anemia secondary to GI bleed. - Hb 9.8 on initial presentation. - Likely secondary to recent episodes of hematochezia in the setting of iron deficiency anemia (as suggested by low iron and % saturation) - Hgb stable at 8.4 today. pt hemodynamically stable. - Continue to monitor hemodynamic status and H/h. Consider pRBC transfusion if Hb < 7 or patient becomes unstable. Qualifiers: Anemia type: iron deficiency Iron deficiency anemia type: chronic blood loss Qualified Code(s): D50.0 - Iron deficiency anemia secondary to blood loss (chronic) (5) DVT prophylaxis Current Visit: Yes Status: Acute Assessment and plan: Patient on 5,000SQ Heparin BID. Will continue to monitor for signs of bleeding. - Subjective Interval history: POD4. No significant event noted overnight. Patient was seen and examined this morning. Patient reports abdominal pain improved. She passed more gas but still no bowel movement. She tolerates her clear liquid diet well without significant nausea/vomiting. Patient denies fever, chills, chest pain, shortness of breath. - Constitutional Vitals: Temp Pulse Resp BP Pulse Ox 98.1 F 85 16 99/67 98 12/25/16 12:02 12/25/16 12:02 12/25/16 12:02 12/25/16 12:02 12/25/16 12:02 General appearance: Present: cooperative, A&O X 3, no acute distress, answers questions appropriately - Head Head exam: Present: atraumatic, normocephalic - Eye Eye exam: Present: PERRL, conjuntiva pink, sclera anicteric - Neck Neck exam general surgery: Present: supple, trachea midline. Absent: lymphadenopathy - Respiratory Respiratory exam: Present: CTAB. Absent: accessory muscle use, rales, rhonchi, wheezes - Cardiovascular Cardiovascular exam: Present: RRR, +S1, +S2. Absent: diastolic murmur, gallop, rubs, systolic murmur - GI/Abdominal GI/Abdominal exam: Present: normal bowel sounds, soft, tenderness (Mild tenderness mostly at right side. ), no peritoneal signs. Absent: distended Additional comments: Surgical incision midline dry, clean and intact. Does not appear infected. No redness. No drainage. No warmth. Mild tenderness to palpation. - Extremities Exam Extremities exam: Present: warm, radial pulses palpable and symetrical. Absent : calf tenderness, cyanotic, pedal edema - Neurological Exam Neurological exam: Present: CN II-XII intact, oriented X3, no focal deficits. Absent: pronater drift, facial droop, speech deficit - Skin Skin exam: Present: dry, intact Internal Medicine: Result - Labs CBC & Chem 7: 12/25/16 06:38 12/24/16 06:55 Labs: Short CBC 12/25/16 Range/Units 06:38 WBC 6.0 (4.3-11.1) K/mcL Hgb 8.4 L (11.5-15.4) g/dL Hct 25.6 L (35.3-44.9) % Plt Count 187 (140-400) K/mcL Neutrophils # 3.9 (1.6-8.9) K/mcL - ABG Interpretation ABG results: PT/INR, D-dimer PT 11.9 Seconds (9.4-12.1) 12/19/16 17:13 - VTE Documentation of Mechanical Device: Intermittent pneumatic compression device Consult Discharge Plan - Plan Referrals: Kalie Hollingsworth [Advanced Practice Nurse] - 12/30/16 8:30 am <Tony-Maura Teixeira - Last Filed: 12/25/16 17:35> - Constitutional Vitals: Temp Pulse Resp BP Pulse Ox 98.6 F 83 16 119/76 98 12/25/16 15:36 12/25/16 15:36 12/25/16 15:36 12/25/16 15:36 12/25/16 15:36 Internal Medicine: Result - Labs CBC & Chem 7: 12/25/16 06:38 12/24/16 06:55 Labs: Short CBC 12/25/16 Range/Units 06:38 WBC 6.0 (4.3-11.1) K/mcL Hgb 8.4 L (11.5-15.4) g/dL Hct 25.6 L (35.3-44.9) % Plt Count 187 (140-400) K/mcL Neutrophils # 3.9 (1.6-8.9) K/mcL - ABG Interpretation ABG results: PT/INR, D-dimer PT 11.9 Seconds (9.4-12.1) 12/19/16 17:13 - Attending Attestation I examined this patient and reviewed laboratory, imaging and all diagnostic data. My medical decision-making was reviewed with Dr Telles - Resident Physician. I agree with the documented findings, disposition and treatment plan as described above.
[2016-12-25] MEDS: Ondansetron 4 MG/2 ML VIAL IVP PRN (19:15)
[2016-12-26] MEDS: *HR* OxyCODONE/APAP 10/325 TABLET PO PRN ×2 (00:47→08:04)
[2016-12-26 05:08] LABS: Basophils % 0.4 %; Eosinophils # 0.2 K/mcL (0.0-0.6); Eosinophils % 4.7 %; Hematocrit 26.4 % (35.3-44.9); Hemoglobin 8.5 g/dL (11.5-15.4); Immature Granulocytes % 0.4 % (0-4); Lymphocytes # 1.5 K/mcL (0.6-4.6); Lymphocytes % 28.9 %; Mean Corpuscular HGB Conc 32.2 g/dL (31.6-35.5); Mean Corpuscular Hemoglobin 28.2 pg (28.0-33.3); Mean Corpuscular Volume 87.7 fL (83.0-100.0); Mean Platelet Volume 11.1 fL (9.4-12.4); Monocytes # 0.5 K/mcL (0.0-1.3); Neutrophils # 2.8 K/mcL (1.6-8.9); Platelet Count 201 K/mcL (140-400); Red Blood Count 3.01 M/mcL (3.82-4.97); Red Cell Distribution Width 14.4 % (11.5-14.5); Segmented Neutrophils % 55.6 %
[2016-12-26] MEDS: Ondansetron 4 MG/2 ML VIAL IVP PRN (06:04)
[2016-12-26] MEDS: *HR* Heparin 5,000 UNIT/ML VIAL SQ SCH (06:04)
[2016-12-26] MEDS: 0.9 % Sodium Chloride 1,000 ML IVC SCH (06:04)
[2016-12-26] MEDS: Nicotine 14 MG PATCH.TD24 TD SCH (07:57)
[2016-12-26 08:07] VITALS: BP 155/91
--- NOTE | 2016-12-26 08:21 | General Surgery Progress Note ---
Date of Encounter: 12/26/16 Time of Encounter: 08:19 - Assessment and Plan (1) Angiodysplasia of colon with hemorrhage Status: Resolved Patient with recurrent hematochezia Recently 12/18/16 underwent colonoscopy which revealed: multiple large patchy angiodysplatic lesions without bleeding at the hepatic flexure and in the distal transverse colon It was recommended she obtain surgical referral for possible right hemicolectomy POD#5 Right hemicolectomy Tolerating full liquids. Bowel function has returned. Advance to regular feeds. She is stable and ready for discharge from a surgical standpoint. She needs to follow-up with Dr. Berman in one week. (2) Acute blood loss anemia Status: Resolved Subjective Patient reports: feels better, tolerating liquids well, flatus, bowel movement Narrative: Patient seen and examined. Had BM yesterday. Tolerating full liquid diet. Pain is minimal. Objective Vital Signs - Last 8 Hours Temp Pulse Resp BP Pulse Ox 12/26/16 08:00 99.1 F 85 18 155/91 97 12/26/16 04:10 97.9 F 71 18 147/71 98 Intake and Output 12/25/16 12/26/16 12/26/16 23:59 07:59 15:59 Intake Total 1000 / 1000 Balance 1000 / 1000 Intake: IV Fluids 1000 / 1000 0.9 % Sodium Chloride 1, 1000 / 1000 000 ML @ 60 mls/hr IVC . [id number] [facility] Rx#: [id number] Other: Weight 61.2 kg Patient Weight 12/26/16 23:59 Weight 61.2 kg - General physical appearance well developed - Eyes normal ocular movement - Neck Neck exam: trachea midline - Respiratory normal expansion, clear to auscultation - Cardiovascular Cardiovascular exam: Present: RRR, no murmurs/rubs/gallops - Abdomen Abdomen: Present: bowel sounds present, soft, tender (expected post-op tenderness) - Incision Incision: Present: clean and dry, intact - Neurologic CN 2-12 grossly intact - Psychiatric oriented to time, oriented to person, oriented to place - Labs 12/26/16 04:46 12/24/16 06:55 - VTE Documentation of Mechanical Device: Intermittent pneumatic compression device Consult Discharge Plan - Plan Instructions: Anemia (DC), Anemia (GEN) Additional Instructions: You can take prescribed oxycodone/acetaminophen 10/325 1 tablet by mouth every 6 hours for severe pain for 5 days and every 12 hours after. You can take prescribed Zofran 4 mg under tongue every 8 hours as needed for nausea. Advanced diet if you can tolerate. Please follow up with Dr. Berman of [facility] within a week. Please follow up with your primary care provider within a week. Please have labs (Complete Blood Count & Ferritin) done one week after discharge. Referrals: Jeanette Jacinto CNP [Advanced Practice Nurse] - 12/30/16 9:30 am Prescriptions: Ondansetron ODT [Zofran ODT] 4 mg SL Q8H PRN #12 tab.rapdis PRN Reason: Nausea OxyCODONE/APAP 10/325 [Percocet 10/325 MG] 1 each PO AD #25 tablet - Attending Attestation I examined this patient and my medical decision-making was reviewed with the FARM BOSS/PA/Advanced Practice Nurse/Resident Physician. I agree with the documented findings, disposition and treatment plan as described except to the extent set forth below. The patient is seen and evaluated with the resident on morning rounds. She has had bowel movement. Her pain control is excellent. She is ready for discharge. I will see her back in 1 week. Alec Berman MD FACS
--- NOTE | 2016-12-26 08:55 | Discharge Summary ---
<ElfegoNadia - Last Filed: 12/26/16 14:09> Date of Encounter: 12/26/16 Time of Encounter: 08:30 - Discharge Diagnosis (1) Angiodysplasia of colon Priority: Primary Status: Acute (2) Hypoglycemia Priority: Secondary Status: Acute (3) Acute GI bleeding Priority: Secondary Status: Resolved (4) Anemia Priority: Secondary Status: Chronic Qualifiers: Anemia type: iron deficiency Iron deficiency anemia type: chronic blood loss Qualified Code(s): D50.0 - Iron deficiency anemia secondary to blood loss (chronic) - Discharge Medications Prescriptions: Ondansetron ODT [Zofran ODT] 4 mg SL Q8H PRN #12 tab.rapdis PRN Reason: Nausea OxyCODONE/APAP 10/325 [Percocet 10/325 MG] 1 each PO AD #25 tablet Home Medications: Hyoscyamine Sulfate [Hyoscyamine Sulfate ER] 0.375 mg PO BID 12/18/16 [History] Omeprazole [PriLOSEC] 40 mg PO DAILY 12/18/16 [History] Ondansetron ODT [Zofran ODT] 4 mg SL Q8H PRN #12 tab.rapdis 12/26/16 [Rx] OxyCODONE/APAP 10/325 [Percocet 10/325 MG] 1 each PO AD #25 tablet 12/26/16 [Rx] Allergies/Adverse Reactions: Allergies fentanyl Allergy (Verified 12/07/16 16:26) Hives Date of admission: 12/20/16 18:09 Primary care physician: Marlon Rivera MD Consults: Dr. Berman of [facility] and Dr. Purcell of [facility]. Discharging clinician: Nadia Telles Anticipated date of discharge: 12/26/16 - Patient Status Disposition: Home, Self-Care Condition: Good Functional capacity at discharge: independent ambulation Overall status at discharge: patient is progressing back to baseline - Discharge Instructions Instructions: Anemia (DC), Anemia (GEN) Follow Up With: Jeanette Jacinto CNP [Advanced Practice Nurse] - 12/30/16 9:30 am Additional Instructions: You can take prescribed oxycodone/acetaminophen 10/325 1 tablet by mouth every 6 hours for severe pain for 5 days and every 12 hours after. You can take prescribed Zofran 4 mg under tongue every 8 hours as needed for nausea. Advanced diet if you can tolerate. Please follow up with Dr. Berman of [facility] within a week. Please follow up with your primary care provider within a week. Please have labs (Complete Blood Count & Ferritin) done one week after discharge. - Diet and Activity Activity: increase activity as tolerated Diet: advance to your usual diet (as tolerated.) Hospital course: Ms. Matos is a 41 year old female with recurrent history of H/o of recurrent GI bleeding over past 6 months. Patient had colonoscopy on 12/18 showing multiple non-bleeding AVM in the right colon and patient was recommended to see surgery for possible right hemicolectomy. Patient was admitted on 12/19 for hematochezia with Hgb 9.8 (baseline > 11). Patient underwent right hemicolectomy on 12/21. Patient tolerates the surgery well and started to pass gas since 12/23. Patient was advanced on diet and she is able to tolerate regular diet this morning. Patient remains hemodynamically stable with Hgb 8.5 today. Given patient's clinical improvement, patient will be discharged home with Zofran as needed for nausea nd Percocet 10/325 1 tablet PO q6H as needed for severe pain up to 5 days and then decreased to q12H (#25, no refill). Patient will follow up with her PCP and Dr. Berman within a week after discharge. - Time Spent with Patient Total time spent providing and/or coordinating discharge services: Greater than 30 minutes - Constitutional Vitals: Temp Pulse Resp BP Pulse Ox 99.1 F 85 18 155/91 97 12/26/16 08:00 12/26/16 08:00 12/26/16 08:00 12/26/16 08:00 12/26/16 08:00 General appearance: Present: cooperative, A&O X 3, no acute distress, answers questions appropriately - Head Head exam: Present: atraumatic, normocephalic - Eye Eye exam: Present: PERRL, conjuntiva pink, sclera anicteric - Neck Neck exam general surgery: Present: supple, trachea midline. Absent: lymphadenopathy - Respiratory Respiratory exam: Present: CTAB. Absent: accessory muscle use, rales, rhonchi, wheezes - Cardiovascular Cardiovascular exam: Present: RRR, +S1, +S2. Absent: diastolic murmur, gallop, rubs, systolic murmur - GI/Abdominal GI/Abdominal exam: Present: normal bowel sounds, soft, tenderness (Mild tenderness mostly at right side.), no peritoneal signs. Absent: distended Additional comments: Surgical incision midline dry, clean and intact. Does not appear infected. No redness. No drainage. No warmth. Mild tenderness to palpation. - Extremities Exam Extremities exam: Present: warm, radial pulses palpable and symetrical. Absent : calf tenderness, cyanotic, pedal edema - Neurological Exam Neurological exam: Present: CN II-XII intact, oriented X3, no focal deficits. Absent: pronater drift, facial droop, speech deficit - Skin Skin exam: Present: dry, intact - VTE Documentation of Mechanical Device: Intermittent pneumatic compression device <Maura Billingsley - Last Filed: 12/26/16 18:53> Date of admission: 12/20/16 18:09 Primary care physician: Marlon Rivera MD Hospital course: Ms. Matos is a 41 year old female - Time Spent with Patient Total time spent providing and/or coordinating discharge services: - Constitutional Vitals: Temp Pulse Resp BP Pulse Ox 99.1 F 85 18 155/91 97 12/26/16 08:00 12/26/16 08:00 12/26/16 08:00 12/26/16 08:00 12/26/16 08:00 - Attending Attestation I examined this patient and reviewed laboratory, imaging and all diagnostic data. My medical decision-making was reviewed with Nadia Ford - Resident Physician. I agree with the documented findings, disposition and treatment plan as described above.
== END 2016-12-26 12:04 | disposition home or self-care (01) | DRG 264 ==
LOC: 3ANU 16:41 → EMEROO 16:41 → 3ANU 20:33 → SUATTDRO 12-20 18:09
PROVIDERS: ADMIT Pediatrics; ATTEND Internal Medicine

== ENCOUNTER 2017-06-26 10:31 | Inpatient (IN) ==
[2017-06-26] MEDS ORDERED: cefOXitin 2,000 MG in D5% in Water (Mini-Bag+) 100 ML IVPB ONE (10:43)
[2017-06-26] MEDS ORDERED: Albuterol 2.5 MG/3 ML NEBULIZER IH ONE (10:43)
[2017-06-26] MEDS ORDERED: Ringers Solution, Lactated 1,000 ML IVC SCH (10:45)
--- NOTE | 2017-06-26 10:54 | Anesthesia Evaluation PreOp ---
Date of Encounter: 06/26/17 Time of Encounter: 10:52 - Past History Planned Operation: Transverse Colectomy Cardiac History: Denies any Significant Hx Pulmonary History: Smoker INFORMATICS SPECIALIST History: Denies Any Significant HX Other Medical History: Denies Any Significant HX, GERD Anesthesia History: No Prior Anesthetic Complications, Past Anesthesia (Hyst, Tubal, Exp. Lap. Hemicolectomy) : No (Hysterectomy) Alcohol Use: none Drug use: none Medications and Allergies Omeprazole [PriLOSEC] 40 mg PO DAILY 12/18/16 [History] 3 Allergy/AdvReac Type Severity Reaction Status Date / Time fentanyl Allergy Hives Verified 06/26/17 11:02 - Meds/Allergy Pre-op Review Medications Reviewed: Yes Allergies Reviewed: Yes Beta Blockers on Current Med List: No Anesthesia Results - Labs Laboratory Tests 02/27/17 06/13/17 06/13/17 19:11 12:41 12:41 WBC 5.4 Hgb 9.9 L Hct 32.3 L Plt Count 230 INR 1.0 Sodium 141 Potassium 3.4 L Chloride 106 Carbon Dioxide 23 BUN 6 L - Imaging EKG: image reviewed (SR) Anesthesia Exam O2 Sat Height 1.63 m Height 1.63 m Weight 63.957 kg Weight 63.957 kg O2 Sat by Pulse Oximetry 98 Vital Signs Temp Pulse Resp BP Pulse Ox 99.7 F H 103 18 118/73 98 06/26/17 10:46 06/26/17 10:46 06/26/17 10:46 06/26/17 10:46 06/26/17 10:46 Height: 5'4'' Weight: 134# NPO (# of Hours): > 8 hrs Pain Scale: 0 Pain Scale Used: Numeric (1 - 10) - HEENT Pupil (Motor): Pupils equal, EOMI Mallampati: I Teeth: Normal Oral Opening: Greater than 3 - INFORMATICS SPECIALIST LOC: Oriented INFORMATICS SPECIALIST Motor: Normal RUE, Normal LUE, Normal RLE, Normal LLE, Normal Face INFORMATICS SPECIALIST Sensory: Normal: RUE, LUE, RLE, LLE, Face - Cardiac Rhythm: Regular Murmur: None JVD: No Carotid Bruit: No - Pulmonary Breath Sounds: bilateral Clear Respiratory Effort: Symmetrical Anesthesia Assess/Plan ASA Score: 2 Modified Michael Scale for Level of Consciousness: Cooperative, oriented, and tranquil Anesthetic Plan: General Autologous Blood: Yes Monitoring Plan: Standard Monitors Recovery Plan: PACU
[2017-06-26] MEDS ORDERED: *HR* Rocuronium Bromide 50 MG/5 ML VIAL ONE (11:15)
[2017-06-26] MEDS ORDERED: Lidocaine -MPF 2% 2 ML VIAL ONE (11:15)
[2017-06-26] MEDS ORDERED: *HR* FentaNYL (PF) 100 MCG/2 ML VIAL ONE ×2 (11:18→12:38)
[2017-06-26] MEDS ORDERED: *HR* Midazolam HCl 2 MG/2 ML VIAL ONE (11:18)
[2017-06-26] MEDS ORDERED: *HR* Propofol 200 MG/20 ML VIAL IVP ONE (11:18)
--- NOTE | 2017-06-26 11:23 | History & Physical Report ---
Date of Encounter: 06/26/17 Time of Encounter: 11:00 24 Hour HP Update - Instructions Instructions: If the History and Physical is less than 30 days old and was completed prior to A.M. admission and or procedure and has NOT been updated on calendar day of procedure please complete this update prior to performing procedure. - Update Patient reports changes in Medical Condition: No Changes in examination, assessment, or condition: No Changes in Medication: No Preop tests/diagnostics Reviewed: Yes Surgery Remains Indicated: Yes Consent for Planned Operative Procedure(s) Verified: Yes - Pre-Operative Checklist Preoperative Checklist Indicated: Yes Prophylactic Antibiotic Ordered: Yes Home Medications Include Beta Kanwal: No Is VTE Prophylaxis Indicated?: Yes
[2017-06-26] MEDS ORDERED: *HR* Phenylephrine 10 MG/ML VIAL ONE (12:36)
[2017-06-26] MEDS ORDERED: Dexamethasone 4 MG/ML VIAL ONE (12:46)
[2017-06-26] MEDS ORDERED: Ondansetron 4 MG/2 ML VIAL ONE (12:46)
[2017-06-26] MEDS ORDERED: Acetaminophen IV 1,000 MG/100 ML INFUS..BTL ONE (13:16)
[2017-06-26] MEDS ORDERED: *HR* HYDROmorphone 2 MG/ML SYRINGE ONE (13:18)
[2017-06-26] MEDS ORDERED: Neostigmine Methylsulfate 3 MG/3 ML SYRINGE ONE (13:26)
--- NOTE | 2017-06-26 14:49 | Operative Note ---
Date of procedure: 06/26/17 Pre-op diagnosis: Angiodysplasia of the colon with ongoing hemorrhage Post-op diagnosis: same Procedure: #1 transverse colectomy #2 mobilization of splenic flexure Anesthesia: RHONDA Surgeon: Alec Berman Estimated blood loss (cc): 50 Specimen: Transverse colon and splenic flexure. 50% of the descending colon Condition: stable Disposition: PACU Procedure in Detail: After informed consent the patient was taken to major operative suite and placed supine position given adequate general anesthetic. The abdomen was prepped and draped in sterile fashion utilizing ChloraPrep standard draping techniques. Timeout statement patient was identified. I opened the previous midline incision. There were very few adhesions to the anterior abdominal wall. These were freed with lysis of adhesions. Small bowel lysis of adhesions was carried out. The distal ileum was mainly involved with interloop adhesions and these were divided. I did not 5 the anastomosis which is in excellent condition. Looking at the transverse colon angiodysplasia was visible from outside of the colon and extending for at least 8 inches distal to the small bowel anastomosis. I mobilized the sigmoid colon and descending colon. The splenic flexure was divided and taken down with electrocautery and surgical clips. Portions of the omentum were divided between clamps and hemostatic ligatures. I decided on the mid descending colon for the point of division. This was proximal to the sigmoid colon. This had an excellent blood supply from the inferior mesenteric artery. I divided the colon at about the mid descending level. The tattoo that I had placed at time of endoscopy was not visualized on the wall of the colon however the mesentery and surrounding omental tissue was stained with Theodora ink at the splenic flexure. This was where I had anticipated seen the tattoo after performing the endoscopy myself. The transverse music colon was divided between clamps and hemostatic ligatures. I divided the ileum with the ARTEMIO just proximal to the previous anastomosis. I divided the mid descending colon with ARTEMIO. The specimen was passed off the field. I opened the specimen. Years ago deal of intraluminal blood right in the area where I had seen the angiodysplasia during initial exploration. I carefully examined the mucosa. The mucosa proximal to my division of the descending colon was all normal for at least 15-20 cm before I saw the first evidence of angiodysplasia. This was consistent with my findings at endoscopy. A dirty field protocol was used I performed a functional end-to-end anastomosis with ARTEMIO between the descending colon and small bowel. The resulting enterotomy was closed with TA 60. I then circumferentially reinforced the staple anastomosis with 2-0 silk seromuscular stitches. The mesentery opening was then completely closed with interrupted [id number] 2- 0 silk stitches. This gave an excellent technical result. Total blood loss was 50 mL. The midline was closed with looped 0 PDS and the skin with interrupted 2-0 Vicryl and skin clips. She tolerated the procedure well.
[2017-06-26] MEDS ORDERED: *HR* Metoprolol 5 MG/5 ML VIAL IVP PRN ×2 (14:50→16:35)
[2017-06-26] MEDS ORDERED: *HR* HYDROmorphone (PF) 1 MG/ML SYRINGE IVP PRN (14:50)
[2017-06-26] MEDS ORDERED: Ondansetron 4 MG/2 ML VIAL IVP PRN (14:50)
[2017-06-26] MEDS ORDERED: 0.9 % Sodium Chloride 1,000 ML IVC SCH (15:00)
[2017-06-26] MEDS: *HR* HYDROmorphone (PF) 1 MG/ML SYRINGE IVP PRN ×8 (15:12→21:58)
[2017-06-26] MEDS: *HR* Promethazine 25 MG/ML VIAL IVP PRN ×2 (15:38→15:47)
--- NOTE | 2017-06-26 15:52 | Anesthesia Evaluation Post Op ---
Date of Encounter: 06/26/17 Time of Encounter: 15:51 - Vital Signs Vital Signs: Vital Signs/O2 Sat, Most Current Temp Pulse Resp BP Pulse Ox 97.9 F 82 16 143/86 99 06/26/17 15:21 06/26/17 15:41 06/26/17 15:41 06/26/17 15:41 06/26/17 15:41 - Lungs Lungs: Clear Ascult./Percussion - Airway Airway: Non-obstructed - Cardiovascular Regular Rate - Mental Status Mental Status: Alert & Oriented, Answers Appropriately - Pain Pain Scale: 0 Pain Scale used: Numeric (1 - 10) - Nausea Vomiting Nausea Vomiting: Not Present - Hydration Hydration: NPO, Has not voided - Discharge PostOp Status: Transfer Patient to floor
[2017-06-26] MEDS ORDERED: cefOXitin 2,000 MG in D5% in Water (Mini-Bag+) 100 ML IVPB SCH (16:00)
[2017-06-26] MEDS ORDERED: *HR* Heparin 5,000 UNIT/ML VIAL SQ SCH (18:00)
[2017-06-26] MEDS: *HR* Heparin 5,000 UNIT/ML VIAL SQ SCH (18:04)
[2017-06-26] MEDS: 0.9 % Sodium Chloride 1,000 ML IVC SCH (18:05)
[2017-06-26] MEDS: Ondansetron 4 MG/2 ML VIAL IVP PRN (18:59)
[2017-06-26] MEDS: cefOXitin 2,000 MG in D5% in Water (Mini-Bag+) 100 ML IVPB SCH (20:03)
[2017-06-26] MEDS ORDERED: *HR* Promethazine 25 MG/ML VIAL IVP ONE (22:07)
[2017-06-27] MEDS: *HR* HYDROmorphone (PF) 1 MG/ML SYRINGE IVP PRN ×12 (00:10→22:05)
[2017-06-27] MEDS: cefOXitin 2,000 MG in D5% in Water (Mini-Bag+) 100 ML IVPB SCH (03:26)
[2017-06-27] MEDS: *HR* Heparin 5,000 UNIT/ML VIAL SQ SCH ×2 (04:48→17:24)
[2017-06-27] MEDS: Pantoprazole 40 MG VIAL IVP SCH (07:40)
[2017-06-27] MEDS: 0.9 % Sodium Chloride 1,000 ML IVC SCH ×2 (07:44→20:28)
[2017-06-27] MEDS ORDERED: Pantoprazole 40 MG VIAL IVP SCH (09:00)
[2017-06-27] MEDS ORDERED: Chloraseptic Spray 177 ML BOTTLE MM PRN (10:49)
--- NOTE | 2017-06-27 10:53 | General Surgery Progress Note ---
<Celeste Maldonado - Last Filed: 06/27/17 11:21> Date of Encounter: 06/27/17 Time of Encounter: 10:30 - Assessment and Plan (1) Angiodysplasia of colon with hemorrhage Current Visit: Yes Status: Acute POD #1 #1 transverse colectomy #2 mobilization of splenic flexure Continue supportive care and discomfort management -NPO except one cup of ice per shift -continue NG to low intermittent wall suction. If no nausea, vomiting, or increased output will consider DC tomorrow -await return about function -repeat a.m. labs -continue G.I. and DVT prophylaxis -ambulate as tolerated -incentive spirometry encouraged Discomfort is marginally controlled on current regimen. Will give Ofirmev X1 and obtain lab studies. If renal function is ok, will add scheduled Toradol. (2) DVT prophylaxis Current Visit: Yes Status: Acute EP CDs while in bed ambulate as tolerated and at least 3 times daily heparin injections SQ, 5000 units twice daily (3) Smoking addiction Current Visit: Yes Status: Acute Encouraged use of IS at least 10 times every hour while awake scheduled duonebs nicotine patch daily encouraged smoking cessation Subjective Patient reports: no new complaints, feels better, still having pain, pain is less, voiding w/o difficulty, no flatus, no bowel movement, afebrile Objective Vital Signs - Last 8 Hours Temp Pulse Resp BP Pulse Ox 06/27/17 10:17 98.4 F 83 16 152/84 95 06/27/17 07:46 97 06/27/17 06:26 98.5 F 88 16 151/93 97 06/27/17 04:25 98.8 F 95 15 150/87 97 Intake and Output 06/26/17 06/27/17 06/27/17 23:59 07:59 15:59 Intake Total 100 / 100 1100 / 1100 0 / 0 Output Total 300 / 300 400 / 400 Balance 100 / 100 800 / 800 -400 / -400 Intake: IV Fluids 100 / 100 1100 / 1100 0.9 % Sodium Chloride 1,000 ML 1000 / 1000 @ 75 mls/hr IVC .[id number] NICK Rx #:[id number] Mefoxin 2,000 MG In Dextrose 5% 100 / 100 100 / 100 (Minibag+) 100 ML 100 ML @ 200 mls/hr IVPB Q8H NICK Rx#: [id number] Oral 0 / 0 0 / 0 Output: Urine 300 / 300 400 / 400 Gastric Drainage 0 / 0 0 / 0 Other: Meal NPO NPO Percent of Meal Consumed 0% Weight 62.596 kg Blood Glucose* 168 127 Patient Weight 06/27/17 23:59 Weight 62.596 kg - General physical appearance well developed, well nourished, no distress, moderate pain - Eyes normal ocular movement - ENT normal nares (Left NG noted), atraumatic, normocephalic - Neck Neck exam: no masses, trachea midline, no venous distension - Respiratory normal expansion, normal respiratory effort, clear to auscultation - Cardiovascular Cardiovascular exam: Present: RRR - Abdomen Abdomen: Present: bowel sounds present (Hypoactive), tender (Expected postoperative) Hernia: none - Incision Incision: Present: clean and dry, intact - Integumentary no rash - Neurologic CN 2-12 grossly intact - Musculoskeletal normal gait, normal posture - Psychiatric oriented to time, oriented to person, oriented to place, speech is normal, memory intact - VTE Documentation of Mechanical Device: Intermittent pneumatic compression device Consult Discharge Plan - Plan Referrals: Eddie Ge MD [Primary Care Provider] - <Alec Berman - Last Filed: 06/28/17 09:09> Date of Encounter: 06/28/17 Objective Vital Signs - Last 8 Hours Temp Pulse Resp BP Pulse Ox 06/28/17 08:57 100 06/28/17 08:00 16 100 06/28/17 07:42 98.1 F 91 16 117/76 95 06/28/17 05:18 97.5 F L 97 16 150/81 96 Intake and Output 06/27/17 06/28/17 06/28/17 23:59 07:59 15:59 Intake Total 1180 / 1180 60 / 60 Output Total 975 / 975 250 / 250 450 / 450 Balance 205 / 205 -190 / -190 -450 / -450 Intake: IV Fluids 1000 / 1000 0.9 % Sodium Chloride 1,000 ML 1000 / 1000 @ 75 mls/hr IVC .[id number] NICK Rx #:[id number] Oral 180 / 180 60 / 60 Output: Urine 675 / 675 250 / 250 150 / 150 Gastric Drainage 300 / 300 0 / 0 300 / 300 Other: # Bowel Movements 0 Weight 62 kg Blood Glucose* 103 86 Patient Weight 06/28/17 23:59 Weight 62 kg - Labs 06/28/17 06:02 06/28/17 06:02 Diabetes panel 06/27/17 06/28/17 Range/Units 11:49 06:02 Sodium 138 138 (136-145) mEq/L Potassium 4.1 3.6 (3.5-4.5) mEq/L Chloride 105 105 (98-109) mEq/L Carbon Dioxide 24 24 (19-29) mEq/L BUN 9 8 (7-20) mg/dL Creatinine 0.68 0.61 (0.57-1.11) mg/dL Glucose 99 83 (70-99) mg/dL Calcium 9.1 8.7 (8.6-10.8) mg/dL AST 15 (5-34) Units/L ALT 17 (0-55) Units/L Alkaline Phosphatase 133 H (38-126) Units/L Albumin 3.0 L (3.5-5.0) g/dL Calcium panel 06/27/17 06/28/17 Range/Units 11:49 06:02 Calcium 9.1 8.7 (8.6-10.8) mg/dL Albumin 3.0 L (3.5-5.0) g/dL Pituitary panel 06/27/17 06/28/17 Range/Units 11:49 06:02 Sodium 138 138 (136-145) mEq/L Potassium 4.1 3.6 (3.5-4.5) mEq/L Chloride 105 105 (98-109) mEq/L Carbon Dioxide 24 24 (19-29) mEq/L BUN 9 8 (7-20) mg/dL Creatinine 0.68 0.61 (0.57-1.11) mg/dL Glucose 99 83 (70-99) mg/dL Calcium 9.1 8.7 (8.6-10.8) mg/dL Adrenal panel 06/27/17 06/28/17 Range/Units 11:49 06:02 Sodium 138 138 (136-145) mEq/L Potassium 4.1 3.6 (3.5-4.5) mEq/L Chloride 105 105 (98-109) mEq/L Carbon Dioxide 24 24 (19-29) mEq/L BUN 9 8 (7-20) mg/dL Creatinine 0.68 0.61 (0.57-1.11) mg/dL Glucose 99 83 (70-99) mg/dL Calcium 9.1 8.7 (8.6-10.8) mg/dL Total Bilirubin 0.5 (0.2-1.2) mg/dL AST 15 (5-34) Units/L ALT 17 (0-55) Units/L Alkaline Phosphatase 133 H (38-126) Units/L Albumin 3.0 L (3.5-5.0) g/dL - Attending Attestation I have personally performed a face to face evaluation on this patient. I have reviewed and agree with the care plan. History and Exam by me shows: The patient is seen and evaluated on morning rounds. She is in good pain control but has no bowel sounds this point. Nasogastric tube drainage is minimal. We will continue to work with her on ambulation. Overall she is in excellent condition for postoperative day 1 Alec Berman MD FACS
[2017-06-27] MEDS ORDERED: Acetaminophen IV 1,000 MG/100 ML INFUS..BTL IVPB ONE (11:13)
[2017-06-27] MEDS: Ipratropium/Albuterol Neb 3 ML IH SCH ×4 (11:19→23:08)
[2017-06-27] MEDS: Nicotine 14 MG PATCH.TD24 TD SCH (11:53)
[2017-06-27 11:57] LABS: Basophils % 0.1 %; Hemoglobin 8.6 g/dL (11.5-15.4); Immature Granulocytes % 0.5 % (0-4); Lymphocytes # 1.6 K/mcL (0.6-4.6); Lymphocytes % 9.8 %; Mean Corpuscular HGB Conc 29.7 g/dL (31.6-35.5); Mean Corpuscular Hemoglobin 23.6 pg (28.0-33.3); Mean Corpuscular Volume 79.5 fL (83.0-100.0); Mean Platelet Volume 11.8 fL (9.4-12.4); Monocytes # 1.1 K/mcL (0.0-1.3); Monocytes % 6.9 %; Neutrophils # 13.8 K/mcL (1.6-8.9); Platelet Count 252 K/mcL (140-400); Red Blood Count 3.65 M/mcL (3.82-4.97); Red Cell Distribution Width 16.4 % (11.5-14.5); Segmented Neutrophils % 82.7 %
[2017-06-27 12:11] LABS: BUN/Creatinine Ratio 13 (6-26); Blood Urea Nitrogen 9 mg/dL (7-20); Calcium 9.1 mg/dL (8.6-10.8); Carbon Dioxide 24 mEq/L (19-29); Chloride 105 mEq/L (98-109); Glucose 99 mg/dL (70-99); Osmolality,Calculated 285 (280-300); Potassium 4.1 mEq/L (3.5-4.5); Sodium 138 mEq/L (136-145); eGFR For African Americans > 60 (> 60); eGFR For Non-African Americans > 60 (> 60)
[2017-06-27] MEDS: Ondansetron 4 MG/2 ML VIAL IVP PRN (17:23)
[2017-06-27] MEDS: Ketorolac 15 MG/ML VIAL IVP SCH (17:24)
[2017-06-28] MEDS: *HR* HYDROmorphone (PF) 1 MG/ML SYRINGE IVP PRN ×13 (00:03→23:22)
[2017-06-28] MEDS: Ketorolac 15 MG/ML VIAL IVP SCH ×5 (00:05→23:22)
[2017-06-28] MEDS: Ipratropium/Albuterol Neb 3 ML IH SCH ×6 (03:41→23:06)
[2017-06-28] MEDS: *HR* Heparin 5,000 UNIT/ML VIAL SQ SCH ×2 (05:20→17:14)
[2017-06-28 06:58] LABS: Basophils % 0.1 %; Eosinophils % 0.4 %; Hemoglobin 7.7 g/dL (11.5-15.4); Immature Granulocytes % 0.7 % (0-4); Lymphocytes # 1.3 K/mcL (0.6-4.6); Lymphocytes % 14.7 %; Mean Corpuscular HGB Conc 29.6 g/dL (31.6-35.5); Mean Corpuscular Hemoglobin 23.5 pg (28.0-33.3); Mean Corpuscular Volume 79.5 fL (83.0-100.0); Mean Platelet Volume 12.2 fL (9.4-12.4); Monocytes # 0.7 K/mcL (0.0-1.3); Monocytes % 8.3 %; Neutrophils # 6.4 K/mcL (1.6-8.9); Platelet Count 173 K/mcL (140-400); Red Blood Count 3.27 M/mcL (3.82-4.97); Red Cell Distribution Width 16.6 % (11.5-14.5); Segmented Neutrophils % 75.8 %
[2017-06-28 07:13] LABS: Alanine Aminotransferase 17 Units/L (0-55); Albumin/Globulin Ratio 0.9 (1.1-2.2); Alkaline Phosphatase 133 Units/L (38-126); Aspartate Amino Transferase 15 Units/L (5-34); BUN/Creatinine Ratio 13 (6-26); Bilirubin,Total 0.5 mg/dL (0.2-1.2); Blood Urea Nitrogen 8 mg/dL (7-20); Calcium 8.7 mg/dL (8.6-10.8); Carbon Dioxide 24 mEq/L (19-29); Chloride 105 mEq/L (98-109); Globulin 3.3 g/dL (2.4-3.5); Glucose 83 mg/dL (70-99); Osmolality,Calculated 283 (280-300); Potassium 3.6 mEq/L (3.5-4.5); Sodium 138 mEq/L (136-145); Total Protein 6.3 g/dL (6.0-8.3); eGFR For African Americans > 60 (> 60); eGFR For Non-African Americans > 60 (> 60)
[2017-06-28] MEDS: Pantoprazole 40 MG VIAL IVP SCH (07:33)
[2017-06-28] MEDS: Nicotine 14 MG PATCH.TD24 TD SCH (07:33)
[2017-06-28] MEDS: 0.9 % Sodium Chloride 1,000 ML IVC SCH ×2 (09:21→22:04)
--- NOTE | 2017-06-28 09:59 | General Surgery Progress Note ---
Date of Encounter: 06/28/17 Time of Encounter: 09:30 - Assessment and Plan (1) Anemia Current Visit: No Status: Chronic Postoperative hematocrit is 26% this appears to be chronic GI blood loss in nature. Intraoperative blood loss was minimal. We will continue to monitor the hemoglobin Qualifiers: Anemia type: iron deficiency Iron deficiency anemia type: chronic blood loss Qualified Code(s): D50.0 - Iron deficiency anemia secondary to blood loss (chronic) (2) Angiodysplasia of colon with hemorrhage Current Visit: Yes Status: Acute Postoperative day 2 from transverse colectomy secondary to active hemorrhage from angiodysplasia. The patient is doing quite well and passing flatus. Nasogastric tube drainage is minimal. She has good bowel sounds. We will remove the nasogastric tube today. Subjective Narrative: The patient has excellent pain control and has passed some flatus. She is postoperative day 2 from transverse colectomy. The incision is healing normally. Nasogastric tube drainage is minimal. We will plan to discontinue the nasogastric tube and I will advance her diet tomorrow morning Objective Vital Signs - Last 8 Hours Temp Pulse Resp BP Pulse Ox 06/28/17 08:57 100 06/28/17 08:00 16 100 06/28/17 07:42 98.1 F 91 16 117/76 95 06/28/17 05:18 97.5 F L 97 16 150/81 96 Intake and Output 06/27/17 06/28/17 06/28/17 23:59 07:59 15:59 Intake Total 1180 / 1180 60 / 60 1000 / 1000 Output Total 975 / 975 250 / 250 450 / 450 Balance 205 / 205 -190 / -190 550 / 550 Intake: IV Fluids 1000 / 1000 1000 / 1000 0.9 % Sodium Chloride 1,000 ML 1000 / 1000 1000 / 1000 @ 75 mls/hr IVC .[id number] NICK Rx #:[id number] Oral 180 / 180 60 / 60 0 / 0 Output: Urine 675 / 675 250 / 250 150 / 150 Gastric Drainage 300 / 300 0 / 0 300 / 300 Other: Meal NPO Percent of Meal Consumed 0% # Bowel Movements 0 Weight 62 kg Blood Glucose* 103 86 Patient Weight 06/28/17 23:59 Weight 62 kg - General physical appearance well developed, well nourished, no pain - Respiratory normal expansion, normal respiratory effort, clear to percussion, clear to auscultation - Cardiovascular Cardiovascular exam: Present: RRR, no murmurs/rubs/gallops - Abdomen Abdomen: Present: bowel sounds present - Incision Incision: Present: clean and dry - Neurologic normal coordination, normal sensation - Psychiatric oriented to time, oriented to person, oriented to place, speech is normal, memory intact - Labs 06/28/17 06:02 06/28/17 06:02 Diabetes panel 06/27/17 06/28/17 Range/Units 11:49 06:02 Sodium 138 138 (136-145) mEq/L Potassium 4.1 3.6 (3.5-4.5) mEq/L Chloride 105 105 (98-109) mEq/L Carbon Dioxide 24 24 (19-29) mEq/L BUN 9 8 (7-20) mg/dL Creatinine 0.68 0.61 (0.57-1.11) mg/dL Glucose 99 83 (70-99) mg/dL Calcium 9.1 8.7 (8.6-10.8) mg/dL AST 15 (5-34) Units/L ALT 17 (0-55) Units/L Alkaline Phosphatase 133 H (38-126) Units/L Albumin 3.0 L (3.5-5.0) g/dL Calcium panel 06/27/17 06/28/17 Range/Units 11:49 06:02 Calcium 9.1 8.7 (8.6-10.8) mg/dL Albumin 3.0 L (3.5-5.0) g/dL Pituitary panel 06/27/17 06/28/17 Range/Units 11:49 06:02 Sodium 138 138 (136-145) mEq/L Potassium 4.1 3.6 (3.5-4.5) mEq/L Chloride 105 105 (98-109) mEq/L Carbon Dioxide 24 24 (19-29) mEq/L BUN 9 8 (7-20) mg/dL Creatinine 0.68 0.61 (0.57-1.11) mg/dL Glucose 99 83 (70-99) mg/dL Calcium 9.1 8.7 (8.6-10.8) mg/dL Adrenal panel 06/27/17 06/28/17 Range/Units 11:49 06:02 Sodium 138 138 (136-145) mEq/L Potassium 4.1 3.6 (3.5-4.5) mEq/L Chloride 105 105 (98-109) mEq/L Carbon Dioxide 24 24 (19-29) mEq/L BUN 9 8 (7-20) mg/dL Creatinine 0.68 0.61 (0.57-1.11) mg/dL Glucose 99 83 (70-99) mg/dL Calcium 9.1 8.7 (8.6-10.8) mg/dL Total Bilirubin 0.5 (0.2-1.2) mg/dL AST 15 (5-34) Units/L ALT 17 (0-55) Units/L Alkaline Phosphatase 133 H (38-126) Units/L Albumin 3.0 L (3.5-5.0) g/dL - VTE Documentation of Mechanical Device: Intermittent pneumatic compression device Consult Discharge Plan - Plan Referrals: Eddie Ge MD [Primary Care Provider] -
[2017-06-29] MEDS: *HR* HYDROmorphone (PF) 1 MG/ML SYRINGE IVP PRN ×12 (01:24→22:23)
[2017-06-29] MEDS: Ipratropium/Albuterol Neb 3 ML IH SCH ×6 (03:47→23:05)
[2017-06-29] MEDS: *HR* Heparin 5,000 UNIT/ML VIAL SQ SCH ×2 (05:15→17:28)
[2017-06-29] MEDS: Ketorolac 15 MG/ML VIAL IVP SCH ×3 (05:16→17:27)
[2017-06-29] MEDS: Pantoprazole 40 MG VIAL IVP SCH (07:12)
[2017-06-29] MEDS: Nicotine 14 MG PATCH.TD24 TD SCH (07:12)
[2017-06-29] MEDS: 0.9 % Sodium Chloride 1,000 ML IVC SCH (10:51)
--- NOTE | 2017-06-29 12:49 | General Surgery Progress Note ---
Date of Encounter: 06/29/17 Time of Encounter: 10:00 - Assessment and Plan (1) Anemia Current Visit: No Status: Chronic Postoperative hematocrit is 26% this appears to be chronic GI blood loss in nature. Intraoperative blood loss was minimal. We will continue to monitor the hemoglobin Qualifiers: Anemia type: iron deficiency Iron deficiency anemia type: chronic blood loss Qualified Code(s): D50.0 - Iron deficiency anemia secondary to blood loss (chronic) (2) Angiodysplasia of colon with hemorrhage Current Visit: Yes Status: Acute Postoperative day 2 from transverse colectomy secondary to active hemorrhage from angiodysplasia. The patient is doing quite well and passing flatus. Nasogastric tube drainage is minimal. She has good bowel sounds. We will remove the nasogastric tube today. The date is 06/29/2017. Postoperative day 3 from transverse colectomy secondary to hemorrhage from angiodysplasia. The patient is passing high points of flatus. No nausea or vomiting without the nasogastric tube. She has good bowel sounds. We will advance her to clear liquids today. Subjective Narrative: The patient has good bowel sounds and has been passing flatus. She is doing quite well from her bowel resection there is no abdominal pain. We will progress her to clear liquids. Objective Vital Signs - Last 8 Hours Temp Pulse Resp BP Pulse Ox 06/29/17 11:16 16 98 06/29/17 10:21 99.0 F 97 16 135/81 98 06/29/17 07:34 16 94 06/29/17 06:33 99.2 F 94 16 117/70 94 Intake and Output 06/28/17 06/29/17 06/29/17 23:59 07:59 15:59 Intake Total 852 / 852 664 / 664 336 / 336 Output Total 550 / 550 200 / 200 250 / 250 Balance 302 / 302 464 / 464 86 / 86 Intake: IV Fluids 852 / 852 664 / 664 336 / 336 0.9 % Sodium Chloride 1,000 ML 852 / 852 664 / 664 336 / 336 @ 75 mls/hr IVC .[id number] NICK Rx #:[id number] Oral 0 / 0 Output: Urine 550 / 550 200 / 200 250 / 250 Other: Meal NPO Percent of Meal Consumed 0% # Bowel Movements 0 0 Blood Glucose* 80 - General physical appearance well developed, well nourished - Respiratory normal expansion, normal respiratory effort, clear to percussion, clear to auscultation - Cardiovascular Cardiovascular exam: Present: RRR, no murmurs/rubs/gallops - Abdomen Abdomen: Present: bowel sounds present, soft - Incision Incision: Present: clean and dry - Neurologic normal coordination, normal sensation - Psychiatric oriented to time, oriented to person, oriented to place, speech is normal, memory intact - Labs 06/28/17 06:02 06/28/17 06:02 - VTE Documentation of Mechanical Device: Intermittent pneumatic compression device Consult Discharge Plan - Plan Referrals: Eddie Ge MD [Primary Care Provider] -
[2017-06-30] MEDS: 0.9 % Sodium Chloride 1,000 ML IVC SCH ×2 (00:15→13:33)
[2017-06-30] MEDS: *HR* HYDROmorphone (PF) 1 MG/ML SYRINGE IVP PRN ×9 (00:35→21:53)
[2017-06-30] MEDS: Ipratropium/Albuterol Neb 3 ML IH SCH ×6 (03:59→23:51)
[2017-06-30] MEDS: *HR* Heparin 5,000 UNIT/ML VIAL SQ SCH ×2 (06:07→17:12)
[2017-06-30] MEDS: Nicotine 14 MG PATCH.TD24 TD SCH (07:49)
[2017-06-30] MEDS: Pantoprazole 40 MG VIAL IVP SCH (07:49)
--- NOTE | 2017-06-30 08:28 | General Surgery Progress Note ---
<Ivy Hernández - Last Filed: 06/30/17 11:03> Date of Encounter: 06/30/17 Time of Encounter: 07:30 - Assessment and Plan (1) Angiodysplasia of colon with hemorrhage Current Visit: Yes Status: Acute POD#3 for transverse colectomy secondary to active hemorrhage from angiodysplasia. Patient had two BM today and is has new onset crampy pain and low grade fevers overnight. Repeat CBC today with no increase in WBC. Good bowel sounds. NG has been removed. (2) Anemia Current Visit: No Status: Chronic Hemoglobin stable and increasing s/p day 3 of transverse colectomy. H/H = 8.3/ 27.4. Will continue to monitor. Qualifiers: Anemia type: iron deficiency Iron deficiency anemia type: chronic blood loss Qualified Code(s): D50.0 - Iron deficiency anemia secondary to blood loss (chronic) Subjective Narrative: No acute events overnight. Today, patient is feeling a lot of crampy pain that is new from yesterday. Patient did have a BM overnight. Objective Vital Signs - Last 8 Hours Temp Pulse Resp BP Pulse Ox 06/30/17 08:09 16 93 06/30/17 06:52 98.8 F 98 16 141/91 93 Intake and Output 06/29/17 06/30/17 06/30/17 23:59 07:59 15:59 Intake Total 600 / 600 1000 / 1000 Output Total 1050 / 1050 400 / 400 100 / 100 Balance -450 / -450 600 / 600 -100 / -100 Intake: IV Fluids 1000 / 1000 0.9 % Sodium Chloride 1,000 ML 1000 / 1000 @ 75 mls/hr IVC .[id number] NICK Rx #:[id number] Oral 600 / 600 Output: Urine 1050 / 1050 400 / 400 100 / 100 Other: Meal Dinner Stool Size Small Small Stool Consistency liquid loose Stool Color Green Green # Bowel Movements 0 1 - General physical appearance well developed, well nourished, moderate pain - Respiratory normal expansion, clear to auscultation - Cardiovascular Cardiovascular exam: Present: RRR, no murmurs/rubs/gallops - Abdomen Abdomen: Present: bowel sounds present, soft. Absent: distended Abdominal Tenderness: diffusely - Neurologic normal coordination, normal sensation - Psychiatric oriented to time, oriented to person, oriented to place, speech is normal, memory intact - Labs 06/30/17 08:18 06/28/17 06:02 - VTE Documentation of Mechanical Device: Intermittent pneumatic compression device Consult Discharge Plan - Plan Referrals: Eddie Ge MD [Primary Care Provider] - <Alec Berman - Last Filed: 06/30/17 15:12> Date of Encounter: 06/30/17 - Assessment and Plan (1) Anemia Current Visit: No Status: Chronic Qualifiers: Anemia type: iron deficiency Iron deficiency anemia type: chronic blood loss Qualified Code(s): D50.0 - Iron deficiency anemia secondary to blood loss (chronic) (2) Angiodysplasia of colon with hemorrhage Current Visit: Yes Status: Acute Objective Vital Signs - Last 8 Hours Temp Pulse Resp BP Pulse Ox 06/30/17 14:41 98.3 F 98 16 142/89 96 06/30/17 11:19 98.1 F 93 16 123/78 95 06/30/17 08:09 16 93 Intake and Output 06/29/17 06/30/17 06/30/17 23:59 07:59 15:59 Intake Total 600 / 600 1000 / 1000 1000 / 1000 Output Total 1050 / 1050 400 / 400 600 / 600 Balance -450 / -450 600 / 600 400 / 400 Intake: IV Fluids 1000 / 1000 1000 / 1000 0.9 % Sodium Chloride 1,000 ML 1000 / 1000 1000 / 1000 @ 75 mls/hr IVC .[id number] NICK Rx #:[id number] Oral 600 / 600 0 / 0 Output: Urine 1050 / 1050 400 / 400 600 / 600 Other: Meal Dinner Clear Percent of Meal Consumed 0% Stool Size Small Small Stool Consistency liquid loose Stool Color Green Green # Bowel Movements 0 0 - Labs 06/30/17 08:18 06/28/17 06:02 - Attending Attestation I examined this patient and my medical decision-making was reviewed with the Resident Physician. I agree with the documented findings, disposition and treatment plan as described except to the extent set forth below. The patient seen and evaluated with the resident on morning rounds. She is complaining of crampy abdominal pain with onset of movements. Her incision is healing well. She has no febrile episodes. I will check a white blood cell count to make sure that she is not having any new infection or inflammation. We will continue supportive care and pain control throughout the day. We will hold her dietary advance until her symptoms improved. Alec Berman MD FACS
[2017-06-30 08:29] LABS: Basophils % 0.1 %; Eosinophils # 0.3 K/mcL (0.0-0.6); Hematocrit 27.4 % (35.3-44.9); Hemoglobin 8.3 g/dL (11.5-15.4); Immature Granulocytes % 0.3 % (0-4); Lymphocytes # 0.7 K/mcL (0.6-4.6); Lymphocytes % 8.9 %; Mean Corpuscular HGB Conc 30.3 g/dL (31.6-35.5); Mean Corpuscular Hemoglobin 23.9 pg (28.0-33.3); Mean Platelet Volume 10.7 fL (9.4-12.4); Monocytes # 0.6 K/mcL (0.0-1.3); Monocytes % 8.1 %; Neutrophils # 5.9 K/mcL (1.6-8.9); Platelet Count 208 K/mcL (140-400); Red Blood Count 3.47 M/mcL (3.82-4.97); Red Cell Distribution Width 16.7 % (11.5-14.5); Segmented Neutrophils % 78.6 %
[2017-06-30] MEDS: Ondansetron 4 MG/2 ML VIAL IVP PRN ×2 (12:34→21:53)
[2017-06-30] MEDS: *HR* LORazepam 2 MG/ML VIAL IVP PRN (14:41)
[2017-06-30] MEDS: Ketorolac 15 MG/ML VIAL IVP SCH ×2 (17:13→23:44)
[2017-07-01] MEDS: Ipratropium/Albuterol Neb 3 ML IH SCH ×6 (03:56→23:39)
[2017-07-01] MEDS: 0.9 % Sodium Chloride 1,000 ML IVC SCH ×2 (04:04→17:20)
[2017-07-01] MEDS: Ondansetron 4 MG/2 ML VIAL IVP PRN ×3 (04:05→16:24)
[2017-07-01] MEDS: *HR* HYDROmorphone (PF) 1 MG/ML SYRINGE IVP PRN ×2 (04:05→15:36)
[2017-07-01 05:07] LABS: Basophils % 0.3 %; Eosinophils # 0.2 K/mcL (0.0-0.6); Eosinophils % 2.7 %; Hematocrit 28.9 % (35.3-44.9); Hemoglobin 8.4 g/dL (11.5-15.4); Immature Granulocytes % 0.3 % (0-4); Lymphocytes % 13.4 %; Mean Corpuscular HGB Conc 29.1 g/dL (31.6-35.5); Mean Corpuscular Hemoglobin 23.3 pg (28.0-33.3); Mean Corpuscular Volume 80.3 fL (83.0-100.0); Mean Platelet Volume 11.2 fL (9.4-12.4); Monocytes # 0.8 K/mcL (0.0-1.3); Monocytes % 10.6 %; Neutrophils # 5.4 K/mcL (1.6-8.9); Platelet Count 251 K/mcL (140-400); Red Cell Distribution Width 16.7 % (11.5-14.5); Segmented Neutrophils % 72.7 %
[2017-07-01 05:23] LABS: BUN/Creatinine Ratio 12 (6-26); Blood Urea Nitrogen 8 mg/dL (7-20); Calcium 9.6 mg/dL (8.6-10.8); Carbon Dioxide 15 mEq/L (19-29); Chloride 109 mEq/L (98-109); Glucose 86 mg/dL (70-99); Osmolality,Calculated 282 (280-300); Potassium 4.2 mEq/L (3.5-4.5); Sodium 137 mEq/L (136-145); eGFR For African Americans > 60 (> 60); eGFR For Non-African Americans > 60 (> 60)
[2017-07-01] MEDS: Ketorolac 15 MG/ML VIAL IVP SCH ×3 (06:09→17:22)
[2017-07-01] MEDS: *HR* Heparin 5,000 UNIT/ML VIAL SQ SCH ×2 (06:10→17:20)
[2017-07-01] MEDS: Nicotine 14 MG PATCH.TD24 TD SCH (07:46)
[2017-07-01] MEDS: Pantoprazole 40 MG VIAL IVP SCH (07:46)
[2017-07-01] MEDS: *HR* OxyCODONE/APAP 10/325 TABLET PO PRN ×2 (07:50→14:25)
--- NOTE | 2017-07-01 14:44 | Discharge Summary ---
<Ivy Hernández - Last Filed: 07/04/17 14:35> Date of Encounter: 07/04/17 Time of Encounter: 06:50 - Discharge Diagnosis (1) Angiodysplasia of colon with hemorrhage Priority: Primary Status: Acute (2) Anemia Priority: Secondary Status: Chronic Qualifiers: Anemia type: iron deficiency Iron deficiency anemia type: chronic blood loss Qualified Code(s): D50.0 - Iron deficiency anemia secondary to blood loss (chronic) - Discharge Medications Prescriptions: OxyCODONE/APAP 10/325 [Percocet 10/325 MG] 1 tab PO Q4HR PRN #40 tablet PRN Reason: Pain rated 1-5 Ondansetron ODT [Zofran ODT] 4 mg SL Q6HR #30 tab.rapdis Ibuprofen 800 mg PO Q6H PRN #50 tablet PRN Reason: Pain Home Medications: Omeprazole [PriLOSEC] 40 mg PO DAILY 12/18/16 [History] Ibuprofen 800 mg PO Q6H PRN #50 tablet 07/01/17 [Rx] Ondansetron ODT [Zofran ODT] 4 mg SL Q6HR #30 tab.rapdis 07/01/17 [Rx] OxyCODONE/APAP 10/325 [Percocet 10/325 MG] 1 tab PO Q4HR PRN #40 tablet [Rx] Allergies/Adverse Reactions: 3 Allergy/AdvReac Type Severity Reaction Status Date / Time fentanyl Allergy Hives Verified 06/26/17 11:02 General Surgery Exam Initial Vital Signs Temp Pulse Resp BP Pulse Ox 99.7 F H 103 18 118/73 98 06/26/17 10:46 06/26/17 10:46 06/26/17 10:46 06/26/17 10:46 06/26/17 10:46 - General physical appearance well developed, well nourished - Respiratory normal expansion, normal respiratory effort, clear to auscultation - Cardiovascular Cardiovascular exam: Present: RRR, no murmurs/rubs/gallops - Abdomen Abdomen general surgery: Present: bowel sounds present, soft Abdominal Tenderness: Present: diffusely - Incision Incision: Present: approximated (no signs of infection). Absent: draining - Neurologic Present: normal coordination, normal sensation - Musculoskeletal Present: normal gait, normal posture - Psychiatric Psychiatric general surgery: Present: A&Ox3, speech is normal - Additional Findings Constitutional: Alert, in no acute distress, well nourished, well developed. Head: Normocephalic, atraumatic, normal contour and symmetric, no masses, lesions or scars Heart: Normal, regular rate and rhythm, no murmurs Lungs: Clear to auscultation, no wheezes, rales, or rhonchi Abdomen: mild distension and diffuse mild tenderness, bowel sounds regular and normal, midline incision with stables healing well without signs of infection, Soft and no masses palpable, no guarding or rigidity. Extremities: No clubbing, cyanosis, or edema, radial pulse +2/4, capillary refill <2sec. Skin: Midline vertical incision along the abdomen with stables. Skin warm and dry, no lesions, no rashes, no jaundice Neurologic: Cranial nerves II through XII grossly intact, no focal deficits, strength within normal limits in all extremities Psych: Cooperative with exam, good eye contact, cognitive function intact, judgment good insight good, speech clear, thought process logical, and goal directed Date of admission: 06/26/17 16:40 Primary care physician: Eddie Ge MD Consults: 06/30/17 12:07 Consult to Physical Therapy [CONS] Routine Comment: Evaluate, develop and implement POC Reason for Consult: d/c planning OT [Consult to Occupational Therapy] [CONS] Routine Comment: Evaluate, develop and implement POC Reason for Consult: d/c planning - Patient Status Disposition: Home, Self-Care Condition: Good Functional capacity at discharge: independent ambulation Overall status at discharge: patient is progressing back to baseline - Discharge Instructions Instructions: Bowel Resection (DC) Follow Up With: Eddie Ge MD [Primary Care Provider] - Alec Berman MD [Partnered Physician] - 07/09/17 2:50 pm Additional Instructions: 1. May shower, No tub/bath until release per surgeon. 2. Wash incision with soap and water. Pat dry daily. 3. No lifting, pushing, pulling more than 15 lbs per 6 weeks. 4. No driving until off narcotics for 24 hrs and safety able to react in the car. 5. May climb stairs. 6. Follow-up appointment scheduled in 1-2 weeks with surgery. - Diet and Activity Activity: increase activity as tolerated Diet: advance to your usual diet (as tolerated ) - Hospital Course Hospital course: Ms. Matos is a 42 year old female who was a direct surgical admission for a scheduled transverse colectomy secondary to active hemorrhage from angiodysplasia. She underwent the transverse colectomy with mobilization of the splenic flexure. Patient remained hemodynamically stable and afebrile throughout hospital stay. Incision showed no evidence of infection. Patient was put on bowel rest and then progressed as tolerated. Patient progressed to regular diet once then had to deescalated down to NPO due to nausea and vomiting patient progressed back to regular diet and tolerated regular diet without vomiting/nausea for 2 meals before discharge. Patient was scheduled with f/u appointment with surgery in 1 weeks. Patient was given instructions not to lift, push, or pull more than 15 lbs per 6 weeks, no tubs or bath until surgeon releases, she should wash her incision with soap and water and pat dry dialy, and not to drive until off of narcotics for 24 hrs and safely able to react while driving. - Time Spent with Patient Total time spent providing and/or coordinating discharge services: Labs on day of discharge: Labs from last 24 hours 07/01/17 07/01/17 04:47 04:47 WBC 7.5 RBC 3.60 L Hgb 8.4 L Hct 28.9 L MCV 80.3 L MCH 23.3 L MCHC 29.1 L RDW 16.7 H Plt Count 251 MPV 11.2 Immature Gran % 0.3 Seg Neutrophils % 72.7 Lymphocytes % 13.4 Monocytes % 10.6 Eosinophils % 2.7 Basophils % 0.3 Neutrophils # 5.4 Lymphocytes # 1.0 Monocytes # 0.8 Eosinophils # 0.2 Basophils # 0.0 Sodium 137 Potassium 4.2 Chloride 109 Carbon Dioxide 15 L BUN 8 Creatinine 0.65 Est GFR ( Amer) > 60 Est GFR (Non-Af Amer) > 60 BUN/Creatinine Ratio 12 Glucose 86 Calculated Osmolality 282 Calcium 9.6 - Impressions ITS Impressions [facility] X-Ray 06/26/17 18:26 IMPRESSION: Nasogastric tube is in appropriate position with the tip over the distal stomach and side hole over the mid body. D/ / Carolynn Greenfield MD / Carolynn Grenefield MD Interpreting Provider: Carolynn Greenfield MD <Alec Berman - Last Filed: 07/04/17 16:52> Date of Encounter: 07/04/17 - Discharge Diagnosis (1) Anemia Status: Chronic Qualifiers: Anemia type: iron deficiency Iron deficiency anemia type: chronic blood loss Qualified Code(s): D50.0 - Iron deficiency anemia secondary to blood loss (chronic) (2) Angiodysplasia of colon with hemorrhage Status: Acute General Surgery Exam Initial Vital Signs Temp Pulse Resp BP Pulse Ox 99.7 F H 103 18 118/73 98 06/26/17 10:46 06/26/17 10:46 06/26/17 10:46 06/26/17 10:46 06/26/17 10:46 Date of admission: 06/26/17 16:40 Primary care physician: Eddie Ge MD Consults: 06/30/17 12:07 Consult to Physical Therapy [CONS] Routine Comment: Evaluate, develop and implement POC Reason for Consult: d/c planning OT [Consult to Occupational Therapy] [CONS] Routine Comment: Evaluate, develop and implement POC Reason for Consult: d/c planning - Hospital Course Hospital course: Ms. Matos is a 42 year old female - Time Spent with Patient Total time spent providing and/or coordinating discharge services: Labs on day of discharge: Labs from last 24 hours 07/04/17 07/04/17 07/03/17 05:40 04:32 22:59 POC Glucose 87 86 Prealbumin 8.0 L 07/03/17 16:52 POC Glucose 91 H Prealbumin - Impressions ITS Impressions [facility] X-Ray 06/26/17 18:26 IMPRESSION: Nasogastric tube is in appropriate position with the tip over the distal stomach and side hole over the mid body. D/ / Carolynn Greenfield MD / Carolynn Greenfield MD Interpreting Provider: Carolynn Greenfield MD X-Ray 07/02/17 04:13 IMPRESSION: Interval removal of the NG tube with development of multiple mildly dilated small bowel loops throughout the abdomen as measured above suggesting possible small bowel obstruction. The findings were sent to the Radiology Results Communication [facility] at 4:59 am on 07/02/2017to be communicated to a licensed caregiver. RECOMMENDATION: Consider further evaluation with contrast-enhanced CT of the abdomen and pelvis as clinically warranted. D/ / Luanne Kelly MD / Luanne Kelly MD Interpreting Provider: Luanne Kelly MD - Attending Attestation I examined this patient and my medical decision-making was reviewed with the Resident Physician. I agree with the documented findings, disposition and treatment plan as described except to the extent set forth below. The patient was seen and evaluated on morning rounds. we will try regular diet and proceed with discharge later today Alec Berman MD FACS
[2017-07-01] MEDS ORDERED: Metoclopramide 10 MG/2 ML VIAL IVP PRN (15:37)
[2017-07-01] MEDS: *HR* LORazepam 2 MG/ML VIAL IVP PRN (16:24)
--- NOTE | 2017-07-01 17:07 | General Surgery Progress Note ---
<Ivy Hernández - Last Filed: 07/01/17 17:12> Date of Encounter: 07/01/17 Time of Encounter: 06:50 - Assessment and Plan (1) Angiodysplasia of colon with hemorrhage Current Visit: Yes Status: Acute POD#4 for transverse colectomy secondary to active hemorrhage from angiodysplasia. Patient was tolerating clear liquid diet well and then advanced to regular diet with minimal nausea for breakfast and had some nausea with lunch then vomited a couple of hours after lunch. Patient's pain increased and patients d/c was held until able to tolerate food without vomiting. (2) Anemia Current Visit: No Status: Chronic Hemoglobin stable and increasing s/p day 4 of transverse colectomy. H/H = 8.4/ 28.9. Will continue to monitor. Qualifiers: Anemia type: iron deficiency Iron deficiency anemia type: chronic blood loss Qualified Code(s): D50.0 - Iron deficiency anemia secondary to blood loss (chronic) Subjective Narrative: Patient is a 42 y/o female POD#4 for transverse colectomy secondary to active hemorrhage from angiodysplasia. Today was doing well with little crampy pain and tolerated breakfast with little N/V. Patient ate lunch and had some nausea but ended up vomiting after taking a shower. Patient's pain increased and discharged was held until tomorrow. Objective Vital Signs - Last 8 Hours Temp Pulse Resp BP Pulse Ox 07/01/17 15:35 99.0 F 110 16 136/91 98 07/01/17 11:56 16 95 07/01/17 10:44 98.3 F 90 16 119/76 95 Intake and Output 07/01/17 07/01/17 07/01/17 07:59 15:59 23:59 Intake Total 1376 / 1376 520 / 520 Output Total 0 / 0 0 / 0 Balance 1376 / 1376 520 / 520 Intake: IV Fluids 1276 / 1276 400 / 400 0.9 % Sodium Chloride 1,000 ML 1276 / 1276 400 / 400 @ 75 mls/hr IVC .[id number] [facility] Rx #:[id number] Oral 100 / 100 120 / 120 Output: Urine 0 / 0 0 / 0 Other: Meal Lunch Percent of Meal Consumed 25% Stool Size Large Stool Consistency loose Stool Color Green # Bowel Movements 1 0 Weight 61.235 kg Patient Weight 07/01/17 23:59 Weight 61.235 kg - General physical appearance well developed, well nourished, no distress - Respiratory normal expansion, normal respiratory effort, clear to auscultation - Cardiovascular Cardiovascular exam: Present: RRR, no murmurs/rubs/gallops - Abdomen Abdomen: Present: bowel sounds present, soft, non tender Abdominal Tenderness: diffusely (mild) - Incision Incision: Present: clean and dry (stabled incision midline without any signes of infection. ) - Integumentary no rash - Neurologic normal coordination, normal sensation - Musculoskeletal normal gait, normal posture - Psychiatric oriented to time, oriented to person, oriented to place, speech is normal, memory intact - Labs 07/01/17 04:47 07/01/17 04:47 Diabetes panel 07/01/17 Range/Units 04:47 Sodium 137 (136-145) mEq/L Potassium 4.2 (3.5-4.5) mEq/L Chloride 109 (98-109) mEq/L Carbon Dioxide 15 L (19-29) mEq/L BUN 8 (7-20) mg/dL Creatinine 0.65 (0.57-1.11) mg/dL Glucose 86 (70-99) mg/dL Calcium 9.6 (8.6-10.8) mg/dL Calcium panel 07/01/17 Range/Units 04:47 Calcium 9.6 (8.6-10.8) mg/dL Pituitary panel 07/01/17 Range/Units 04:47 Sodium 137 (136-145) mEq/L Potassium 4.2 (3.5-4.5) mEq/L Chloride 109 (98-109) mEq/L Carbon Dioxide 15 L (19-29) mEq/L BUN 8 (7-20) mg/dL Creatinine 0.65 (0.57-1.11) mg/dL Glucose 86 (70-99) mg/dL Calcium 9.6 (8.6-10.8) mg/dL Adrenal panel 07/01/17 Range/Units 04:47 Sodium 137 (136-145) mEq/L Potassium 4.2 (3.5-4.5) mEq/L Chloride 109 (98-109) mEq/L Carbon Dioxide 15 L (19-29) mEq/L BUN 8 (7-20) mg/dL Creatinine 0.65 (0.57-1.11) mg/dL Glucose 86 (70-99) mg/dL Calcium 9.6 (8.6-10.8) mg/dL - VTE Documentation of Mechanical Device: Intermittent pneumatic compression device Consult Discharge Plan - Plan Instructions: Bowel Resection (DC) Additional Instructions: 1. May shower, No tub/bath until release per surgeon. 2. Wash incision with soap and water. Pat dry daily. 3. No lifting, pushing, pulling more than 15 lbs per 6 weeks. 4. No driving until off narcotics for 24 hrs and safety able to react in the car. 5. May climb stairs. 6. Follow-up appointment scheduled in 1-2 weeks with surgery. Referrals: Alec Berman MD [Partnered Physician] - 07/09/17 2:50 pm Eddie Ge MD [Primary Care Provider] - Prescriptions: OxyCODONE/APAP 10/325 [Percocet 10/325 MG] 1 tab PO Q4HR PRN #40 tablet PRN Reason: Pain rated 1-5 Ondansetron ODT [Zofran ODT] 4 mg SL Q6HR #30 tab.rapdis Ibuprofen 800 mg PO Q6H PRN #50 tablet PRN Reason: Pain <Alec Berman - Last Filed: 07/02/17 14:18> Date of Encounter: 07/01/17 - Assessment and Plan (1) Anemia Current Visit: No Status: Chronic Qualifiers: Anemia type: iron deficiency Iron deficiency anemia type: chronic blood loss Qualified Code(s): D50.0 - Iron deficiency anemia secondary to blood loss (chronic) (2) Angiodysplasia of colon with hemorrhage Current Visit: Yes Status: Acute Objective Vital Signs - Last 8 Hours Temp Pulse Resp BP Pulse Ox 07/02/17 11:11 98.2 F 106 16 136/83 94 07/02/17 06:27 97.7 F 100 18 121/83 95 Intake and Output 07/01/17 07/02/17 07/02/17 23:59 07:59 15:59 Intake Total 324 / 324 100 / 100 1108 / 1108 Output Total 0 / 0 Balance 324 / 324 100 / 100 1108 / 1108 Intake: IV Fluids 324 / 324 1108 / 1108 0.9 % Sodium Chloride 1,000 ML 324 / 324 1000 / 1000 @ 75 mls/hr IVC .[id number] [facility] Rx #:[id number] Reglan 20 MG In 0.9 % Sodium 108 / 108 Chloride 50 ML @ 108 mls/hr IVPB ONCE ONE Rx#:[id number] Oral 0 / 0 100 / 100 0 / 0 Output: Urine 0 / 0 Other: Meal Dinner NPO LUNCH Percent of Meal Consumed 0% # Voids 1 1 Blood Glucose* 111 116 - Labs 07/01/17 04:47 07/01/17 04:47 - Attending Attestation I examined this patient and my medical decision-making was reviewed with the Resident Physician. I agree with the documented findings, disposition and treatment plan as described except to the extent set forth below. The patient is seen and evaluated morning rounds with the resident. She has developed some vomiting after advancing her diet. She appears to have a postoperative ileus with a very quiet abdomen we will decrease her diet and treat the nausea. She will need more time for resolution of postoperative ileus Alec Berman MD FACS
[2017-07-02] MEDS: Ondansetron 4 MG/2 ML VIAL IVP PRN ×3 (01:29→19:48)
[2017-07-02] MEDS: *HR* HYDROmorphone (PF) 1 MG/ML SYRINGE IVP PRN ×4 (01:29→23:24)
[2017-07-02] MEDS: Ketorolac 15 MG/ML VIAL IVP SCH ×4 (01:46→18:10)
[2017-07-02] MEDS ORDERED: Metoclopramide 10 MG/2 ML VIAL IVP ONE ×2 (04:10→04:21)
[2017-07-02] MEDS ORDERED: Metoclopramide 20 MG in 0.9 % Sodium Chloride 50 ML IVPB ONE (04:15)
[2017-07-02] MEDS: Ipratropium/Albuterol Neb 3 ML IH SCH ×6 (04:15→23:07)
[2017-07-02] MEDS: *HR* Heparin 5,000 UNIT/ML VIAL SQ SCH ×2 (06:13→18:10)
[2017-07-02] MEDS: Pantoprazole 40 MG VIAL IVP SCH (09:43)
[2017-07-02] MEDS: Nicotine 14 MG PATCH.TD24 TD SCH (09:44)
[2017-07-02] MEDS: 0.9 % Sodium Chloride 1,000 ML IVC SCH ×2 (09:45→23:20)
--- NOTE | 2017-07-02 11:52 | General Surgery Progress Note ---
<Ivy Hernández - Last Filed: 07/02/17 11:50> Date of Encounter: 07/02/17 Time of Encounter: 06:50 - Assessment and Plan (1) Angiodysplasia of colon with hemorrhage Current Visit: Yes Status: Acute POD#4 for transverse colectomy secondary to active hemorrhage from angiodysplasia. Physical exam showed bowel sounds were infrequent. Patient had worsening nausea and vomiting last name. Patient was given Reglan last name continued to have Reglan 20 mg every 6 hours for the next 24 hours and will be placed on nothing by mouth with 300 milliliters per shift and ice chips. Plan: - IV Phenergan - REglan 20 mg Q6hrs for next 24 hrs - NPO with 300ml per shift and ice chips. (2) Anemia Current Visit: No Status: Chronic Hemoglobin stable and increasing s/p day 4 of transverse colectomy. H/H = 8.4/ 28.9. Will continue to monitor. Qualifiers: Anemia type: iron deficiency Iron deficiency anemia type: chronic blood loss Qualified Code(s): D50.0 - Iron deficiency anemia secondary to blood loss (chronic) Subjective Narrative: POD#5 for transverse colectomy secondary to active hemorrhage from angiodysplasia. Patient yesterday was tolerating clear liquid diet well and then advanced to regular diet with minimal nausea for breakfast and had some nausea with lunch then vomited a couple of hours after lunch. Overnight patient vomited 3 times and pain worsened and she did not eat anything. Patient was given Reglan last name and this morning. Patient is still feeling nauseated. Pain is still a crampy pain. Patient was placed on NPO diet with 300cc per shift and ice chips. Objective Vital Signs - Last 8 Hours Temp Pulse Resp BP Pulse Ox 07/02/17 11:11 98.2 F 106 16 136/83 94 07/02/17 06:27 97.7 F 100 18 121/83 95 07/02/17 04:20 99.0 F 83 16 137/70 95 Intake and Output 07/01/17 07/02/17 07/02/17 23:59 07:59 15:59 Intake Total 324 / 324 100 / 100 1108 / 1108 Output Total 0 / 0 Balance 324 / 324 100 / 100 1108 / 1108 Intake: IV Fluids 324 / 324 1108 / 1108 0.9 % Sodium Chloride 1,000 ML 324 / 324 1000 / 1000 @ 75 mls/hr IVC .[id number] [facility] Rx #:[id number] Reglan 20 MG In 0.9 % Sodium 108 / 108 Chloride 50 ML @ 108 mls/hr IVPB ONCE ONE Rx#:[id number] Oral 0 / 0 100 / 100 Output: Urine 0 / 0 Other: Meal Dinner NPO Percent of Meal Consumed 0% # Voids 1 1 Blood Glucose* 111 116 - Additional Exam Constitutional: Alert, in no acute distress, well nourished, well developed. Head: Normocephalic, atraumatic, normal contour and symmetric, no masses, lesions or scars Heart: Normal, regular rate and rhythm, no murmurs Lungs: Clear to auscultation, no wheezes, rales, or rhonchi Abdomen: mild distension and diffuse tenderness, bowel sounds present but in frequent, midline incision with stables healing well without signs of infection, Soft and no masses palpable, no guarding or rigidity. Extremities: No clubbing, cyanosis, or edema, radial pulse +2/4, capillary refill <2sec. Skin: Midline vertical incision along the abdomen. Skin warm and dry, no lesions, no rashes, no jaundice Neurologic: Cranial nerves II through XII grossly intact, no focal deficits, strength within normal limits in all extremities Psych: Cooperative with exam, good eye contact, cognitive function intact, judgment good insight good, speech clear, thought process logical, and goal directed - Labs 07/01/17 04:47 07/01/17 04:47 - VTE Documentation of Mechanical Device: Intermittent pneumatic compression device Consult Discharge Plan - Plan Instructions: Bowel Resection (DC) Additional Instructions: 1. May shower, No tub/bath until release per surgeon. 2. Wash incision with soap and water. Pat dry daily. 3. No lifting, pushing, pulling more than 15 lbs per 6 weeks. 4. No driving until off narcotics for 24 hrs and safety able to react in the car. 5. May climb stairs. 6. Follow-up appointment scheduled in 1-2 weeks with surgery. Referrals: Alec Berman MD [Partnered Physician] - 07/09/17 2:50 pm Eddie Ge MD [Primary Care Provider] - Prescriptions: OxyCODONE/APAP 10/325 [Percocet 10/325 MG] 1 tab PO Q4HR PRN #40 tablet PRN Reason: Pain rated 1-5 Ondansetron ODT [Zofran ODT] 4 mg SL Q6HR #30 tab.rapdis Ibuprofen 800 mg PO Q6H PRN #50 tablet PRN Reason: Pain <Cullen,Alec T - Last Filed: 07/02/17 14:25> Date of Encounter: 07/02/17 - Assessment and Plan (1) Anemia Current Visit: No Status: Chronic Qualifiers: Anemia type: iron deficiency Iron deficiency anemia type: chronic blood loss Qualified Code(s): D50.0 - Iron deficiency anemia secondary to blood loss (chronic) (2) Angiodysplasia of colon with hemorrhage Current Visit: Yes Status: Acute Objective Vital Signs - Last 8 Hours Temp Pulse Resp BP Pulse Ox 07/02/17 11:11 98.2 F 106 16 136/83 94 07/02/17 06:27 97.7 F 100 18 121/83 95 Intake and Output 07/01/17 07/02/17 07/02/17 23:59 07:59 15:59 Intake Total 324 / 324 100 / 100 1108 / 1108 Output Total 0 / 0 Balance 324 / 324 100 / 100 1108 / 1108 Intake: IV Fluids 324 / 324 1108 / 1108 0.9 % Sodium Chloride 1,000 ML 324 / 324 1000 / 1000 @ 75 mls/hr IVC .[id number] [facility] Rx #:[id number] Reglan 20 MG In 0.9 % Sodium 108 / 108 Chloride 50 ML @ 108 mls/hr IVPB ONCE ONE Rx#:[id number] Oral 0 / 0 100 / 100 0 / 0 Output: Urine 0 / 0 Other: Meal Dinner NPO LUNCH Percent of Meal Consumed 0% # Voids 1 1 Blood Glucose* 111 116 - Labs 07/01/17 04:47 07/01/17 04:47 - Attending Attestation I examined this patient and my medical decision-making was reviewed with the Resident Physician. I agree with the documented findings, disposition and treatment plan as described except to the extent set forth below. The patient was seen and evaluated with rest in the morning rounds. I did share the clinical plan with the clinical nurse practitioner. The patient has what appears to be a prolonged postoperative ileus. This was confirmed on [facility] x -ray. She is having several bowel movements today and is passing flatus. I will maintain her dietary restrictions throughout the day. We will likely start her back on clear liquids tomorrow. Diagnosis is prolonged postoperative ileus secondary to lysis of adhesions. Alec Berman MD FACS
[2017-07-02] MEDS: *HR* LORazepam 2 MG/ML VIAL IVP PRN (12:27)
[2017-07-02] MEDS: Metoclopramide 10 MG/2 ML VIAL IVP SCH ×3 (13:09→23:17)
[2017-07-03] MEDS: *HR* HYDROmorphone (PF) 1 MG/ML SYRINGE IVP PRN ×6 (03:11→20:40)
[2017-07-03] MEDS: Ipratropium/Albuterol Neb 3 ML IH SCH ×6 (03:28→23:16)
[2017-07-03] MEDS: *HR* Heparin 5,000 UNIT/ML VIAL SQ SCH ×2 (06:14→18:28)
[2017-07-03] MEDS: Metoclopramide 10 MG/2 ML VIAL IVP SCH (06:15)
[2017-07-03] MEDS: Nicotine 14 MG PATCH.TD24 TD SCH (08:43)
[2017-07-03] MEDS: 0.9 % Sodium Chloride 1,000 ML IVC SCH (08:43)
[2017-07-03] MEDS: Pantoprazole 40 MG VIAL IVP SCH (08:43)
[2017-07-03] MEDS: Ondansetron 4 MG/2 ML VIAL IVP PRN (09:55)
[2017-07-03] MEDS: *HR* OxyCODONE/APAP 10/325 TABLET PO PRN (09:55)
--- NOTE | 2017-07-03 11:37 | General Surgery Progress Note ---
<Ivy Hernández - Last Filed: 07/03/17 11:26> Date of Encounter: 07/03/17 Time of Encounter: 10:00 - Assessment and Plan (1) Angiodysplasia of colon with hemorrhage Current Visit: Yes Status: Acute POD#7 for transverse colectomy secondary to active hemorrhage from angiodysplasia. Physical exam showed bowel sounds were infrequent. Physical exam showed bowel sounds were infrequent. Yesterday, patient was given Reglan 20 mg every 6 hours yesterday and placed on nothing by mouth with 300 milliliters per shift and ice chips. Patient's Reglan was stopped today as she has had 5 BMs. Patient is currently allowed 300cc of liquids per shift with ice chips and will continue this as she is still nauseous with big sips and was still vomited last night once. Plan: - IV Phenergan - NPO with 300ml per shift and ice chips. - stopped Reglan (2) Anemia Current Visit: No Status: Chronic Hemoglobin stable and increasing s/p day 4 of transverse colectomy. H/H = 8.4/ 28.9. Will continue to monitor. Qualifiers: Anemia type: iron deficiency Iron deficiency anemia type: chronic blood loss Qualified Code(s): D50.0 - Iron deficiency anemia secondary to blood loss (chronic) Subjective Narrative: POD#7 for transverse colectomy secondary to active hemorrhage from angiodysplasia. Physical exam showed bowel sounds were infrequent. Patient had worsening nausea and vomiting last name. Patient was given Reglan 20 mg every 6 hours yesterday and placed on nothing by mouth with 300 milliliters per shift and ice chips. Overnight patient still vomited once last night. She is still nauseous with large sips of water. Patient had 5 bowel movements yesterday. Objective Vital Signs - Last 8 Hours Temp Pulse Resp BP Pulse Ox 07/03/17 10:38 98.2 F 94 16 129/80 97 07/03/17 06:52 99.0 F 90 16 123/79 95 Intake and Output 07/02/17 07/03/17 07/03/17 23:59 07:59 15:59 Intake Total 1350 / 1350 50 / 50 1000 / 1000 Output Total 1 / 1 0 / 0 Balance 1349 / 1349 50 / 50 1000 / 1000 Intake: IV Fluids 1000 / 1000 1000 / 1000 0.9 % Sodium Chloride 1,000 ML 1000 / 1000 1000 / 1000 @ 75 mls/hr IVC .[id number] [facility] Rx #:[id number] Oral 350 / 350 50 / 50 Output: Urine 0 / 0 0 / 0 Emesis Other: Meal npo NPO # Voids 1 # Bowel Movements 1 0 Weight 62 kg Blood Glucose* 98 108 99 Patient Weight 07/03/17 23:59 Weight 62 kg - Additional Exam Constitutional: Alert, in no acute distress, well nourished, well developed. Head: Normocephalic, atraumatic, normal contour and symmetric, no masses, lesions or scars Heart: Normal, regular rate and rhythm, no murmurs Lungs: Clear to auscultation, no wheezes, rales, or rhonchi Abdomen: distension present but less then yesterday and diffuse tenderness, bowel sounds present but in frequent, midline incision with stables healing well without signs of infection, Soft and no masses palpable, no guarding or rigidity. Extremities: No clubbing, cyanosis, or edema, radial pulse +2/4, capillary refill <2sec. Skin: Midline vertical incision along the abdomen. Skin warm and dry, no lesions, no rashes, no jaundice Neurologic: Cranial nerves II through XII grossly intact, no focal deficits, strength within normal limits in all extremities Psych: Cooperative with exam, good eye contact, cognitive function intact, judgment good insight good, speech clear, thought process logical, and goal directed - Labs 07/01/17 04:47 07/01/17 04:47 - VTE Documentation of Mechanical Device: Intermittent pneumatic compression device Consult Discharge Plan - Plan Instructions: Bowel Resection (DC) Additional Instructions: 1. May shower, No tub/bath until release per surgeon. 2. Wash incision with soap and water. Pat dry daily. 3. No lifting, pushing, pulling more than 15 lbs per 6 weeks. 4. No driving until off narcotics for 24 hrs and safety able to react in the car. 5. May climb stairs. 6. Follow-up appointment scheduled in 1-2 weeks with surgery. Referrals: Alec Berman MD [Partnered Physician] - 07/09/17 2:50 pm Eddie Ge MD [Primary Care Provider] - Prescriptions: OxyCODONE/APAP 10/325 [Percocet 10/325 MG] 1 tab PO Q4HR PRN #40 tablet PRN Reason: Pain rated 1-5 Ondansetron ODT [Zofran ODT] 4 mg SL Q6HR #30 tab.rapdis Ibuprofen 800 mg PO Q6H PRN #50 tablet PRN Reason: Pain <Nithin Knox - Last Filed: 07/03/17 21:40> Date of Encounter: 07/03/17 Objective Vital Signs - Last 8 Hours Temp Pulse Resp BP Pulse Ox 07/03/17 18:49 98.9 F 79 14 120/77 95 07/03/17 14:38 98.1 F 86 16 123/80 95 Intake and Output 07/03/17 07/03/17 07/03/17 07:59 15:59 23:59 Intake Total 50 / 50 1120 / 1120 Output Total 0 / 0 Balance 50 / 50 1120 / 1120 Intake: IV Fluids 1000 / 1000 0.9 % Sodium Chloride 1,000 ML 1000 / 1000 @ 75 mls/hr IVC .[id number] [facility] Rx #:[id number] Oral 50 / 50 120 / 120 Output: Urine 0 / 0 Other: Meal NPO NPO # Voids 1 # Bowel Movements 1 0 Weight 62 kg Blood Glucose* 108 99 91 Patient Weight 07/03/17 23:59 Weight 62 kg - Labs 07/01/17 04:47 07/01/17 04:47 - Attending Attestation Patient seen and examined; Reviewed current progress note, labs, and current plan; Patient is POD#7 s/p open transverse colectomy complicated by an ileus currently tolerating sips of liquids, decreased abdominal distension and having bowel function, but still slightly nauseated; will continue with sips at present and reassess in AM whether or not to advance diet; Patient's abdomen is non peritoneal
[2017-07-03] MEDS: *HR* Promethazine 25 MG/ML VIAL IVP PRN ×2 (12:37→20:40)
[2017-07-04] MEDS: *HR* HYDROmorphone (PF) 1 MG/ML SYRINGE IVP PRN ×3 (00:38→11:08)
[2017-07-04] MEDS: *HR* OxyCODONE/APAP 10/325 TABLET PO PRN ×3 (01:52→12:59)
[2017-07-04] MEDS: 0.9 % Sodium Chloride 1,000 ML IVC SCH (01:53)
[2017-07-04] MEDS: Ipratropium/Albuterol Neb 3 ML IH SCH ×2 (03:04→07:40)
[2017-07-04] MEDS: *HR* Heparin 5,000 UNIT/ML VIAL SQ SCH (06:00)
[2017-07-04] MEDS: Nicotine 14 MG PATCH.TD24 TD SCH (07:32)
[2017-07-04] MEDS: Pantoprazole 40 MG VIAL IVP SCH (07:34)
[2017-07-04] MEDS: Ondansetron 4 MG/2 ML VIAL IVP PRN ×2 (07:34→12:59)
[2017-07-04] MEDS ORDERED: Ipratropium/Albuterol Neb 3 ML IH PRN (07:42)
[2017-07-04 11:07] VITALS: BP 118/71
== END 2017-07-04 15:40 | disposition home or self-care (01) | DRG 331 ==
LOC: SAMDAY 10:31 → 3ANU 16:40
PROVIDERS: ADMIT Surgery; ATTEND Surgery

== ENCOUNTER 2017-07-08 02:44 | Inpatient (IN) ==
[2017-07-08] MEDS ORDERED: *HR* HYDROmorphone (PF) 1 MG/ML SYRINGE IVP ONE ×2 (02:58→06:03)
[2017-07-08] MEDS ORDERED: 0.9 % Sodium Chloride 1,000 ML IVC ONE ×3 (02:58→06:15)
[2017-07-08] MEDS ORDERED: *HR* Promethazine 25 MG/ML VIAL IVP ONE ×2 (02:58→06:09)
--- NOTE | 2017-07-08 02:58 | Emergency Department Note ---
Disposition Clinical Impression: Small bowel obstruction, Abdominal pain, Nausea and vomiting Disposition: Admitted As Inpatient Condition: Undetermined General Adult HPI - General Chief complaint: ED Abdominal Pain Stated complaint: vomiting/abd pain Time Seen by Provider: 07/08/17 02:51 Source: patient Limitations: no limitations - History of Present Illness Pain Scale: 7 - Related Data Home Medications Medication Instructions Recorded Confirmed Omeprazole [PriLOSEC] 40 mg PO DAILY 12/18/16 06/26/17 Previous Rx's Medication Instructions Recorded Ibuprofen 800 mg PO Q6H PRN #50 tablet 07/01/17 Ondansetron ODT [Zofran ODT] 4 mg SL Q6HR #30 tab.rapdis 07/01/17 OxyCODONE/APAP 10/325 [Percocet 1 tab PO Q4HR PRN #40 tablet 07/01/17 10/325 MG] Allergies Allergy/AdvReac Type Severity Reaction Status Date / Time fentanyl Allergy Hives Verified 07/08/17 02:49 Past Medical History - Past Medical History Medical history: Reports: arthritis, GERD, GI bleed, other Surgical history: Reports: appendectomy, colectomy, other Psychiatric history: Reports: depression [employer] history: Reports: bilateral tubal ligation - Social History Smoking Status: Current every day smoker Smokeless Tobacco Status: No Alcohol use: Reports: none Drug use: Reports: none Physical Exam - General Limitations: no limitations General appearance: alert, in no apparent distress Course Vital Signs Temperature 97.9 F 07/08/17 02:46 Pulse Rate 100 07/08/17 02:46 Respiratory Rate 20 07/08/17 02:46 Blood Pressure 133/84 07/08/17 02:46 O2 Sat by Pulse Oximetry 99 07/08/17 02:46 Temperature 97.9 F 07/08/17 02:46 Pulse Rate 86 07/08/17 06:22 Respiratory Rate 16 07/08/17 06:31 Blood Pressure 123/88 07/08/17 06:31 O2 Sat by Pulse Oximetry 98 07/08/17 06:22 Oxygen Delivery Oxygen Delivery Room Air Medical Decision Making - Lab Data Lab results reviewed: Yes I reviewed the patient's lab results. Result diagrams: 07/08/17 03:00 07/08/17 03:00 Lab Results 10/03/17 10/03/17 10/03/17 Range/Units 02:59 03:00 03:00 WBC 13.6 H D (4.3-11.1) K/mcL RBC 4.01 (3.82-4.97) M/mcL Hgb 9.4 L (11.5-15.4) g/dL Hct 31.1 L (35.3-44.9) % MCV 77.6 L (83.0-100.0) fL MCH 23.4 L (28.0-33.3) pg MCHC 30.2 L (31.6-35.5) g/dL RDW 17.4 H (11.5-14.5) % Plt Count 498 H D (140-400) K/mcL MPV 11.0 (9.4-12.4) fL Immature Gran % 0.5 (0-4) % Seg Neutrophils % 74.6 % Lymphocytes % 15.6 % Monocytes % 7.7 % Eosinophils % 1.5 % Basophils % 0.1 % Neutrophils # 10.2 H (1.6-8.9) K/mcL Lymphocytes # 2.1 (0.6-4.6) K/mcL Monocytes # 1.1 (0.0-1.3) K/mcL Eosinophils # 0.2 (0.0-0.6) K/mcL Basophils # 0.0 (0.0-0.2) K/mcL Sodium 138 (136-145) mEq/L Potassium 2.7 L (3.5-4.5) mEq/L Chloride 102 (98-109) mEq/L Carbon Dioxide 24 (19-29) mEq/L BUN 5 L (7-20) mg/dL Creatinine 0.59 (0.57-1.11) mg/dL Est GFR ( Amer) > 60 (> 60) Est GFR (Non-Af Amer) > 60 (> 60) BUN/Creatinine Ratio 8 (6-26) Glucose 113 H (70-99) mg/dL Calculated Osmolality 284 (280-300) Calcium 9.7 (8.6-10.8) mg/dL Magnesium 1.4 L (1.6-2.6) mg/dL Total Bilirubin 0.3 (0.2-1.2) mg/dL AST 55 H (5-34) Units/L ALT 25 (0-55) Units/L Alkaline Phosphatase 279 H (38-126) Units/L Serum Total Protein 7.5 (6.0-8.3) g/dL Albumin 3.4 L (3.5-5.0) g/dL Globulin 4.1 H (2.4-3.5) g/dL Albumin/Globulin Ratio 0.8 L (1.1-2.2) Urine Color Yellow (Yellow) Urine Clarity Clear (Clear) Urine pH 6.0 (5.0-8.0) pH Units Ur Specific [place] 1.025 (1.010-1.025) Urine Protein 30 H (Neg-Trace) mg/dL Urine Glucose (UA) Normal (Normal) mg/dL Urine Ketones 80 H (Negative) mg/dL Urine Blood Negative (Negative) Urine Nitrite Negative (Negative) Urine Bilirubin Small H (Negative) Urine Urobilinogen Normal (Normal) mg/dL Ur Leukocyte Esterase Negative (Negative) Urine Microscopic RBC 5-15 H (0-3) per hpf Urine Microscopic WBC 5-15 H (0-3) per hpf Ur Squamous Epith Cells Many H (None-Few) per lpf Ur Renal Epithelial Cell Few (None-Few) per hpf Urine Bacteria Few (None-Few) per hpf Hyaline Casts Few (None-Few) per lpf Urine Mucus Few (Few) Ur Culture Indicated? NO (NO) - Radiology Data Radiology results reviewed: Yes I reviewed the patient's radiology results. - EKG Data EKG #1 EKG attestation: Yes I reviewed and interpreted this EKG. EKG results narrative: Normal sinus rhythm rate 70 3R 148 QRS 102 QT/QTC 393/419. No acute ST segment elevation Attestation Statement - Attestation Attestation: I examined this patient and my medical decision-making was reviewed with the Resident Physician. I agree with the documented findings, disposition and treatment plan as described except to the extent set forth below. [id number] time provided Patient complains of abdominal pain and nausea and vomiting. Recent history of transverse colectomy due to angiodysplasias that were bleeding. She appears uncomfortable on exam. Mucous membranes dry
--- NOTE | 2017-07-08 03:02 | Emergency Department Note ---
Disposition Clinical Impression: Small bowel obstruction Abdominal pain Qualifiers: Abdominal location: generalized Qualified Code(s): R10.84 - Generalized abdominal pain Nausea and vomiting Qualifiers: Vomiting type: unspecified Vomiting Intractability: non-intractable Qualified Code(s): R11.2 - Nausea with vomiting, unspecified Disposition: Admitted As Inpatient Condition: Undetermined Referrals: Eddie Ge MD [Primary Care Provider] - Forms: ED Satisfaction Letter, Work/School Release Time of Disposition: 06:01 Abdominal Pain HPI - General Chief Complaint: ED Abdominal Pain Stated Complaint: vomiting/abd pain Time Seen by Provider: 07/08/17 02:51 Source: patient Mode of arrival: ambulatory Limitations: no limitations Nursing Notes Reviewed: Yes Vital Signs Reviewed: Yes - History of Present Illness HPI Narrative: 42-year-old female who recently had a transverse colectomy for angiodysplasia performed roughly [address] Patterson [facility]. She arrives to the emergency department complaining of diffuse abdominal pain and intractable vomiting. The patient states this started a few hours ago when she first woke up. The patient states her by mouth Zofran is not helping at this time. The patient denies any diarrhea, hematochezia, hematemesis, constipation. The patient does admit to nausea, vomiting, fever and chills. Patient denies any other complaints at this time. Pt Subjective Complaint: abdominal pain Onset (ago): hour(s) (2) Consistency: constant, Worsening Location: diffuse Pain Severity: severe Pain Scale: 7 Quality: stabbing Radiation: none Migration to: no migration Improves with: nothing Worsens with: nothing Context: recent surgery/procedure Associated symptoms: Reports: nausea, vomiting, fever, chills. Denies: diarrhea , constipation, dysuria, hematemesis, hematochezia, melena, hematuria Treatments prior to arrival: prescription analgesics, other (antiemetics) - Related Data Home Medications Medication Instructions Recorded Confirmed Omeprazole [PriLOSEC] 40 mg PO DAILY 12/18/16 06/26/17 Previous Rx's Medication Instructions Recorded Ibuprofen 800 mg PO Q6H PRN #50 tablet 07/01/17 Ondansetron ODT [Zofran ODT] 4 mg SL Q6HR #30 tab.rapdis 07/01/17 OxyCODONE/APAP 10/325 [Percocet 1 tab PO Q4HR PRN #40 tablet 07/01/17 10/325 MG] Allergies Allergy/AdvReac Type Severity Reaction Status Date / Time fentanyl Allergy Hives Verified 07/08/17 02:49 All systems ED: reviewed and negative except as stated. Constitutional: Reports: fever, chills, weakness ENT ED: Denies: ear pain Cardiovascular: Denies: chest pain, palpitations, dyspnea on exertion Respiratory: Denies: cough, dyspnea, wheezes Gastrointestinal: Reports: abdominal pain, nausea, vomiting. 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 Psychiatric history: Reports: depression - Social History Smoking status: Current every day smoker Alcohol use: Reports: none Drug use: Reports: none Physical Exam - General Limitations: no limitations General appearance: alert, in distress (Due to pain) - Head Head exam: atraumatic, normocephalic, normal inspection - Neck Neck exam: Present: normal inspection, full ROM, trachea midline - Chest Chest inspection: Present: normal inspection, symmetric chest wall rise - Respiratory Respiratory exam: Present: normal lung sounds bilaterally - Cardiovascular Cardiovascular exam: Present: normal rhythm, tachycardia, normal heart sounds - Abdominal Exam Abdominal exam: Present: soft, tenderness (Diffuse), distention, incision ( Intact). Absent: guarding, rebound, rigidity Course - Consultations Consultation #1: After speaking with Dr. Sylvester and surgery, he recommended admission to Dr. Patterson's service. We will admit the patient at this time. Time: 05:59 Vital Signs Temperature 97.9 F 07/08/17 02:46 Pulse Rate 100 07/08/17 02:46 Respiratory Rate 20 07/08/17 02:46 Blood Pressure 133/84 07/08/17 02:46 O2 Sat by Pulse Oximetry 99 07/08/17 02:46 Temperature 97.9 F 07/08/17 02:46 Pulse Rate 70 07/08/17 04:58 Respiratory Rate 16 07/08/17 04:58 Blood Pressure 121/76 07/08/17 04:58 O2 Sat by Pulse Oximetry 98 07/08/17 04:58 Oxygen Delivery Oxygen Delivery Room Air Abdominal Pain - MDM Narrative Medical decision making narrative: Patient's lab work demonstrates a leukocytosis which is new. In addition the patient's CT scan demonstrates postop ileus versus small bowel obstruction. Given the length of time this is likely small bowel obstruction. While ileus also was not ruled out given the patient's symptoms. The patient's nausea is currently controlled so we will not place an NG tube at this time. We will admit the patient to the surgery service. The patient made aware and agrees to plan. - Medical Records Medical records reviewed: Yes I reviewed the patient's medical records. - Lab Data Lab results reviewed: Yes I reviewed the patient's lab results. Result diagrams: 07/08/17 03:00 07/08/17 03:00 Lab Results 07/08/17 07/08/17 07/08/17 Range/Units 02:59 03:00 03:00 WBC 13.6 H D (4.3-11.1) K/mcL RBC 4.01 (3.82-4.97) M/mcL Hgb 9.4 L (11.5-15.4) g/dL Hct 31.1 L (35.3-44.9) % MCV 77.6 L (83.0-100.0) fL MCH 23.4 L (28.0-33.3) pg MCHC 30.2 L (31.6-35.5) g/dL RDW 17.4 H (11.5-14.5) % Plt Count 498 H D (140-400) K/mcL MPV 11.0 (9.4-12.4) fL Immature Gran % 0.5 (0-4) % Seg Neutrophils % 74.6 % Lymphocytes % 15.6 % Monocytes % 7.7 % Eosinophils % 1.5 % Basophils % 0.1 % Neutrophils # 10.2 H (1.6-8.9) K/mcL Lymphocytes # 2.1 (0.6-4.6) K/mcL Monocytes # 1.1 (0.0-1.3) K/mcL Eosinophils # 0.2 (0.0-0.6) K/mcL Basophils # 0.0 (0.0-0.2) K/mcL Sodium 138 (136-145) mEq/L Potassium 2.7 L (3.5-4.5) mEq/L Chloride 102 (98-109) mEq/L Carbon Dioxide 24 (19-29) mEq/L BUN 5 L (7-20) mg/dL Creatinine 0.59 (0.57-1.11) mg/dL Est GFR ( Amer) > 60 (> 60) Est GFR (Non-Af Amer) > 60 (> 60) BUN/Creatinine Ratio 8 (6-26) Glucose 113 H (70-99) mg/dL Calculated Osmolality 284 (280-300) Calcium 9.7 (8.6-10.8) mg/dL Magnesium 1.4 L (1.6-2.6) mg/dL Total Bilirubin 0.3 (0.2-1.2) mg/dL AST 55 H (5-34) Units/L ALT 25 (0-55) Units/L Alkaline Phosphatase 279 H (38-126) Units/L Serum Total Protein 7.5 (6.0-8.3) g/dL Albumin 3.4 L (3.5-5.0) g/dL Globulin 4.1 H (2.4-3.5) g/dL Albumin/Globulin Ratio 0.8 L (1.1-2.2) Urine Color Yellow (Yellow) Urine Clarity Clear (Clear) Urine pH 6.0 (5.0-8.0) pH Units Ur Specific [place] 1.025 (1.010-1.025) Urine Protein 30 H (Neg-Trace) mg/dL Urine Glucose (UA) Normal (Normal) mg/dL Urine Ketones 80 H (Negative) mg/dL Urine Blood Negative (Negative) Urine Nitrite Negative (Negative) Urine Bilirubin Small H (Negative) Urine Urobilinogen Normal (Normal) mg/dL Ur Leukocyte Esterase Negative (Negative) Urine Microscopic RBC 5-15 H (0-3) per hpf Urine Microscopic WBC 5-15 H (0-3) per hpf Ur Squamous Epith Cells Many H (None-Few) per lpf Ur Renal Epithelial Cell Few (None-Few) per hpf Urine Bacteria Few (None-Few) per hpf Hyaline Casts Few (None-Few) per lpf Urine Mucus Few (Few) Ur Culture Indicated? NO (NO) - Radiology Data Radiology results reviewed: Yes I reviewed the patient's radiology results.
[2017-07-08 03:08] LABS: Bilirubin,Urine Small (Negative); Blood,Urine Negative (Negative); Clarity,Urine Clear (Clear); Color,Urine Yellow (Yellow); Glucose,Urine (UA) Normal (Normal); Ketones,Urine 80 mg/dL (Negative); Leukocyte Esterase,Urine Negative (Negative); Nitrite,Urine Negative (Negative); Protein,Urine 30 mg/dL (Neg-Trace); Specific Gravity,Urine 1.025 (1.010-1.025); Urobilinogen,Urine Normal (Normal)
[2017-07-08 03:10] LABS: Hyaline Casts,Urine Few per lpf (None-Few); Squamous Epithelial Cell,Urine Many per lpf (None-Few)
[2017-07-08 03:14] LABS: Basophils % 0.1 %; Eosinophils # 0.2 K/mcL (0.0-0.6); Eosinophils % 1.5 %; Hematocrit 31.1 % (35.3-44.9); Hemoglobin 9.4 g/dL (11.5-15.4); Immature Granulocytes % 0.5 % (0-4); Lymphocytes # 2.1 K/mcL (0.6-4.6); Lymphocytes % 15.6 %; Mean Corpuscular HGB Conc 30.2 g/dL (31.6-35.5); Mean Corpuscular Hemoglobin 23.4 pg (28.0-33.3); Mean Corpuscular Volume 77.6 fL (83.0-100.0); Monocytes # 1.1 K/mcL (0.0-1.3); Monocytes % 7.7 %; Platelet Count 498 K/mcL (140-400); Red Blood Count 4.01 M/mcL (3.82-4.97); Red Cell Distribution Width 17.4 % (11.5-14.5); Segmented Neutrophils % 74.6 %
[2017-07-08 03:15] LABS: Neutrophils # 10.2 K/mcL (1.6-8.9)
[2017-07-08 03:29] LABS: Bacteria,Urine Few per hpf (None-Few); Mucus,Urine Few (Few); Renal Epithelial Cells,Urine Few per hpf (None-Few)
[2017-07-08 03:31] LABS: Alanine Aminotransferase 25 Units/L (0-55); Albumin 3.4 g/dL (3.5-5.0); Albumin/Globulin Ratio 0.8 (1.1-2.2); Alkaline Phosphatase 279 Units/L (38-126); Aspartate Amino Transferase 55 Units/L (5-34); BUN/Creatinine Ratio 8 (6-26); Bilirubin,Total 0.3 mg/dL (0.2-1.2); Calcium 9.7 mg/dL (8.6-10.8); Carbon Dioxide 24 mEq/L (19-29); Chloride 102 mEq/L (98-109); Globulin 4.1 g/dL (2.4-3.5); Glucose 113 mg/dL (70-99); Osmolality,Calculated 284 (280-300); Potassium 2.7 mEq/L (3.5-4.5); Sodium 138 mEq/L (136-145); Total Protein 7.5 g/dL (6.0-8.3); eGFR For African Americans > 60 (> 60); eGFR For Non-African Americans > 60 (> 60)
[2017-07-08 03:33] LABS: Blood Urea Nitrogen 5 mg/dL (7-20)
[2017-07-08 03:56] LABS: Magnesium 1.4 mg/dL (1.6-2.6)
[2017-07-08] MEDS ORDERED: Magnesium Sulfate 1 GM in D5% in Water 100 ML IVPB ONE (03:58)
[2017-07-08] MEDS ORDERED: 0.9 % Sodium Chloride 1,000 ML ONE (06:15)
[2017-07-08] MEDS ORDERED: Naloxone 0.4 MG/ML INJ IVP PRN (09:46)
--- NOTE | 2017-07-08 10:01 | General Surg History&Physical ---
<Celeste Maldonado - Last Filed: 07/08/17 10:14> Date of Encounter: 07/08/17 Time of Encounter: 10:01 Assessment and Plan (1) Ileus Current Visit: Yes Status: Acute The assessment and plan as outlined above was discussed with the patient and/or family members who expressed understanding and agreement. All questions were answered. Will treat conservatively with bowel rest. If she vomits consideration for an NG is given. IV fluids for hydration. Replace potassium (ordered per ED, she is on bag 2 of 4 K replacement); Magnesium replaced in the ED. Recheck am labs will obtain urinalysis with refluxed culture to rule out a UTI will obtain stool specimens for G.I. Дмитрий given her reports of watery diarrhea NPO except ice chips Q-shift Discomfort management and antiemetics (2) Watery stools Current Visit: Yes Status: Acute See above (3) Electrolyte imbalance Current Visit: Yes Status: Acute The assessment and plan as outlined above was discussed with the patient and/or family members who expressed understanding and agreement. All questions were answered. (4) DVT prophylaxis Current Visit: Yes Status: Acute EOCDs while in bed Heparin injections SQ 5000 units BID (5) Nicotine dependence with nicotine-induced disorder Current Visit: No Status: Chronic The assessment and plan as outlined above was discussed with the patient and/or family members who expressed understanding and agreement. All questions were answered. [facility] Qualifiers: Nicotine product type: cigarettes Qualified Code(s): F17.219 - Nicotine dependence, cigarettes, with unspecified nicotine-induced disorders History of Present Illness Chief complaint: Vomiting and abdominal pain HPI: Ms. Matos is a 42 year old female with a past medical history of a recent transverse colectomy for angiodysplasia of the colon performed on 06/26/[address] Berman. Her hospital course was complicated by ileus, vomiting, and pain control. She was discharged from the hospital on 07/03/2017 after tolerating a regular diet, voiding without difficulty, and controlled abdominal discomfort. She presented on 07/07/2017 to the emergency department for complaints of intractable vomiting since approximately midnight. She states she vomited 6 to 8 episodes, had intermittent loose stool despite feeling as though she was constipated. She denied lack, bloody, or tarry stool. She denied vomiting bright red blood or coffee ground emesis. She denies fever and chills, dizziness, headaches, chest pain, shortness of breath, weakness, or excessive thirst. [facility] Hospital course thus far has included lab work that demonstrates leukocytosis and hypokalemia. A CT scan consistent with postoperative ileus. She was not vomiting in the emergency department so an NG tube was deferred. Surgery has been asked to readmit this patient for evaluation and management of postoperative ileus, vomiting, and electrolyte imbalance. Past Med Surg Social Fam HX - Past Medical History Source: patient, old records reviewed Medical history: arthritis, GERD, GI bleed, other (angiodysplasia of the colon) Psychiatric history: depression - Past Surgical History Surgical History: appendectomy, colectomy, other - Social History Smoking Status: Current every day smoker Smokeless Tobacco Status: No Alcohol use: none Drug use: none Current living situation: Home - Independent Activity Level: Independent ambulation Recent Out of Country Travel Within the Last 8 Weeks: No Exposure or Possible Exposure to Illness During Travel: No - Family History Mother Living Status: Still Living Hx Family Cardiac Disorders: Yes (CHF) Hx Family Endocrine Disorder: Yes (DM) Hx Family Neuromuscular Disorders: Yes (stroke) Father Living Status: Still Living Hx Family Cardiac Disorders: Yes (HTN) Medications and Allergies OxyCODONE/APAP 10/325 [Percocet 10/325 MG] 1 tab PO Q4HR PRN #40 tablet [Rx] 3 Allergy/AdvReac Type Severity Reaction Status Date / Time fentanyl Allergy Hives Verified 07/08/17 02:49 Review of Systems All systems PM: A 10-system review of systems was performed and is negative for pertinent findings except as documented above in the HPI. General Surgery Exam Initial Vital Signs Temp Pulse Resp BP Pulse Ox 97.9 F 100 20 133/84 99 07/08/17 02:46 07/08/17 02:46 07/08/17 02:46 07/08/17 02:46 07/08/17 02:46 - General physical appearance well developed, well nourished, no distress - Eyes normal ocular movement - ENT normal nares, normal mucosa, no hearing loss, no congestion - Neck no masses, no bruits, trachea midline, no lymphadectomy, no venous distension - Respiratory normal expansion, normal respiratory effort, clear to percussion, clear to auscultation - Cardiovascular Cardiovascular exam: Present: RRR, 15, 16 - Abdomen Abdomen general surgery: Present: bowel sounds present (hypoactive), soft, distended, tender - Integumentary Integumentary general surgery: Present: warm and dry, no abnormal pigmentation - Neurologic Present: CN 2-12 grossly intact, normal coordination, normal sensation - Musculoskeletal Present: normal gait, normal posture - Psychiatric Psychiatric general surgery: Present: appropriate, oriented to person, oriented to place, oriented to time, speech is normal, memory intact Results - Labs 07/08/17 03:00 07/08/17 03:00 Abnormal lab results WBC 13.6 K/mcL (4.3-11.1) H D 07/08/17 03:00 Hgb 9.4 g/dL (11.5-15.4) L 07/08/17 03:00 Hct 31.1 % (35.3-44.9) L 07/08/17 03:00 MCV 77.6 fL (83.0-100.0) L 07/08/17 03:00 MCH 23.4 pg (28.0-33.3) L 07/08/17 03:00 MCHC 30.2 g/dL (31.6-35.5) L 07/08/17 03:00 RDW 17.4 % (11.5-14.5) H 07/08/17 03:00 Plt Count 498 K/mcL (140-400) H D 07/08/17 03:00 Neutrophils # 10.2 K/mcL (1.6-8.9) H 07/08/17 03:00 Potassium 2.7 mEq/L (3.5-4.5) L 07/08/17 03:00 BUN 5 mg/dL (7-20) L 07/08/17 03:00 Glucose 113 mg/dL (70-99) H 07/08/17 03:00 Magnesium 1.4 mg/dL (1.6-2.6) L 07/08/17 03:00 AST 55 Units/L (5-34) H 07/08/17 03:00 Alkaline Phosphatase 279 Units/L (38-126) H 07/08/17 03:00 Albumin 3.4 g/dL (3.5-5.0) L 07/08/17 03:00 Globulin 4.1 g/dL (2.4-3.5) H 07/08/17 03:00 Albumin/Globulin Ratio 0.8 (1.1-2.2) L 07/08/17 03:00 Urine Protein 30 mg/dL (Neg-Trace) H 07/08/17 02:59 Urine Ketones 80 mg/dL (Negative) H 07/08/17 02:59 Urine Bilirubin Small (Negative) H 07/08/17 02:59 Urine Microscopic RBC 5-15 per hpf (0-3) H 07/08/17 02:59 Urine Microscopic WBC 5-15 per hpf (0-3) H 07/08/17 02:59 Ur Squamous Epith Cells Many per lpf (None-Few) H 07/08/17 02:59 All other labs normal. - Imaging Additional studies: Abdomen/Pelvis CT 07/08/17 02:57 IMPRESSION: Postoperative ileus versus partial small bowel obstruction. D/ / Jamin Danielson MD / Jamin Danielson MD Interpreting Provider: Jamin Danielson MD <Alec Berman - Last Filed: 07/09/17 07:33> Date of Encounter: 07/08/17 History of Present Illness HPI: Ms. Matos is a 42 year old female Review of Systems All systems PM: A 10-system review of systems was performed and is negative for pertinent findings except as documented above in the HPI. General Surgery Exam Initial Vital Signs Temp Pulse Resp BP Pulse Ox 97.9 F 100 20 133/84 99 07/08/17 02:46 07/08/17 02:46 07/08/17 02:46 07/08/17 02:46 07/08/17 02:46 Results - Labs 07/09/17 03:33 07/09/17 03:33 Abnormal lab results RBC 3.07 M/mcL (3.82-4.97) L 07/09/17 03:33 Hgb 7.2 g/dL (11.5-15.4) L D 07/09/17 03:33 Hct 23.8 % (35.3-44.9) L 07/09/17 03:33 MCV 77.5 fL (83.0-100.0) L 07/09/17 03:33 MCH 23.5 pg (28.0-33.3) L 07/09/17 03:33 MCHC 30.3 g/dL (31.6-35.5) L 07/09/17 03:33 RDW 17.5 % (11.5-14.5) H 07/09/17 03:33 Potassium 2.7 mEq/L (3.5-4.5) L 07/09/17 03:33 BUN < 2 mg/dL (7-20) L 07/09/17 03:33 Creatinine 0.49 mg/dL (0.57-1.11) L 07/09/17 03:33 BUN/Creatinine Ratio 4 (6-26) L 07/09/17 03:33 Calcium 8.0 mg/dL (8.6-10.8) L 07/09/17 03:33 Magnesium 1.4 mg/dL (1.6-2.6) L 07/09/17 03:33 AST 38 Units/L (5-34) H 07/09/17 03:33 Alkaline Phosphatase 171 Units/L (38-126) H 07/09/17 03:33 Serum Total Protein 5.5 g/dL (6.0-8.3) L D 07/09/17 03:33 Albumin 2.5 g/dL (3.5-5.0) L D 07/09/17 03:33 Albumin/Globulin Ratio 0.8 (1.1-2.2) L 07/09/17 03:33 Urine Ketones >=160 mg/dL (Negative) H 07/08/17 18:30 Urine Microscopic RBC 5-15 per hpf (0-3) H 07/08/17 02:59 Urine Microscopic WBC 5-15 per hpf (0-3) H 07/08/17 02:59 Ur Squamous Epith Cells Many per lpf (None-Few) H 07/08/17 02:59 Diabetes panel 07/08/17 07/09/17 Range/Units 14:07 03:33 Sodium 140 139 (136-145) mEq/L Potassium 3.1 L 2.7 L (3.5-4.5) mEq/L Chloride 108 107 (98-109) mEq/L Carbon Dioxide 22 23 (19-29) mEq/L BUN 3 L < 2 L (7-20) mg/dL Creatinine 0.53 L 0.49 L (0.57-1.11) mg/dL Glucose 80 82 (70-99) mg/dL Calcium 8.5 L 8.0 L (8.6-10.8) mg/dL AST 38 H (5-34) Units/L ALT 20 (0-55) Units/L Alkaline Phosphatase 171 H (38-126) Units/L Albumin 2.5 L D (3.5-5.0) g/dL Calcium panel 07/08/17 07/09/17 Range/Units 14:07 03:33 Calcium 8.5 L 8.0 L (8.6-10.8) mg/dL Albumin 2.5 L D (3.5-5.0) g/dL Pituitary panel 07/08/17 07/09/17 Range/Units 14:07 03:33 Sodium 140 139 (136-145) mEq/L Potassium 3.1 L 2.7 L (3.5-4.5) mEq/L Chloride 108 107 (98-109) mEq/L Carbon Dioxide 22 23 (19-29) mEq/L BUN 3 L < 2 L (7-20) mg/dL Creatinine 0.53 L 0.49 L (0.57-1.11) mg/dL Glucose 80 82 (70-99) mg/dL Calcium 8.5 L 8.0 L (8.6-10.8) mg/dL Adrenal panel 07/08/17 07/09/17 Range/Units 14:07 03:33 Sodium 140 139 (136-145) mEq/L Potassium 3.1 L 2.7 L (3.5-4.5) mEq/L Chloride 108 107 (98-109) mEq/L Carbon Dioxide 22 23 (19-29) mEq/L BUN 3 L < 2 L (7-20) mg/dL Creatinine 0.53 L 0.49 L (0.57-1.11) mg/dL Glucose 80 82 (70-99) mg/dL Calcium 8.5 L 8.0 L (8.6-10.8) mg/dL Total Bilirubin 0.2 (0.2-1.2) mg/dL AST 38 H (5-34) Units/L ALT 20 (0-55) Units/L Alkaline Phosphatase 171 H (38-126) Units/L Albumin 2.5 L D (3.5-5.0) g/dL All other labs normal. - Attending Attestation I have personally performed a face to face evaluation on this patient. I have reviewed and agree with the care plan. History and Exam by me shows: The patient is seen and evaluated with clinical practitioner. She has active bowel sounds. She has hypokalemia. We will correct her hypokalemia and aggressively hydrate her. She will also require Gastrografin enema to make sure the anastomosis is intact. Alec Berman MD FACS
[2017-07-08] MEDS: Pantoprazole 40 MG VIAL IVP SCH (10:48)
[2017-07-08] MEDS: 0.9 % Sodium Chloride 1,000 ML IVC SCH ×3 (10:48→20:45)
[2017-07-08] MEDS: *HR* HYDROmorphone 2 MG/ML SYRINGE IVP PRN ×4 (10:49→20:46)
[2017-07-08] MEDS: *HR* Promethazine 25 MG/ML VIAL IVP PRN ×3 (10:49→20:45)
[2017-07-08] MEDS: Ipratropium/Albuterol Neb 3 ML IH SCH ×4 (11:44→23:56)
[2017-07-08 15:07] LABS: BUN/Creatinine Ratio 6 (6-26); Calcium 8.5 mg/dL (8.6-10.8); Carbon Dioxide 22 mEq/L (19-29); Chloride 108 mEq/L (98-109); Glucose 80 mg/dL (70-99); Osmolality,Calculated 286 (280-300); Potassium 3.1 mEq/L (3.5-4.5); Sodium 140 mEq/L (136-145); eGFR For African Americans > 60 (> 60); eGFR For Non-African Americans > 60 (> 60)
[2017-07-08 15:08] LABS: Blood Urea Nitrogen 3 mg/dL (7-20)
[2017-07-08] MEDS ORDERED: Potassium Chloride 40 MEQ, Lidocaine 1% 2 ML in D5% in Water 500 ML IVPB ONE (15:10)
[2017-07-08] MEDS: *HR* Heparin 5,000 UNIT/ML VIAL SQ SCH (16:30)
--- NOTE | 2017-07-08 17:45 | Electrocardiograph Report ---
[place] [id number] Test Date: 2017-07-08 Pat Name: aRj Matos Department: 103 Room: 3B Gender: F [employer]: : 1975 Requested By: Konrad Kern Order Number: [id number] Reading MD: Jeanette Cook Measurements Intervals [place] Rate: 73 P: 55 FL: 148 QRS: 50 QRSD: 102 T: 45 QT: 393 QTc: 419 Interpretive Statements SINUS RHYTHM POSSIBLE RIGHT VENTRICULAR CONDUCTION DELAY [RSR (QR) IN V1/V2] Electronically Signed On 07-08-2017 17:43:58 EDT by Jeanette Cook
[2017-07-08 18:43] LABS: Bilirubin,Urine Negative (Negative); Blood,Urine Negative (Negative); Clarity,Urine Clear (Clear); Color,Urine Yellow (Yellow); Glucose,Urine (UA) Normal (Normal); Ketones,Urine >=160 mg/dL (Negative); Leukocyte Esterase,Urine Negative (Negative); Nitrite,Urine Negative (Negative); PH,Urine 6.5 pH Units (5.0-8.0); Protein,Urine Negative (Neg-Trace); Specific Gravity,Urine 1.016 (1.010-1.025); Urobilinogen,Urine Normal (Normal)
[2017-07-09] MEDS: *HR* HYDROmorphone 2 MG/ML SYRINGE IVP PRN ×8 (00:42→22:50)
[2017-07-09 03:20] LABS: Adenovirus F 40/41 PCR Not detected (Not detect); Astrovirus PCR Not detected (Not detect); Campylobacter by PCR Not detected (Not detect); Cryptosporidium by PCR Not detected (Not detect); Cyclospora cayetanensis PCR Not detected (Not detect); Entamoeba histolytica PCR Not detected (Not detect); Enteroaggregative E.coli(EAEC) Not detected (Not detect); Enteropathogenic E.coli(EPEC) Not detected (Not detect); Enterotoxigenic E.coli (ETEC) Not detected (Not detect); Giardia lamblia PCR Not detected (Not detect); Norovirus GI/GII PCR Not detected (Not detect); Plesiomonas shigelloides PCR Not detected (Not detect); Rotavirus A PCR Not detected (Not detect); Salmonella PCR Not detected (Not detect); Sapovirus PCR Not detected (Not detect); Shig/EnteroinvasiveE coli EIEC Not detected (Not detect); Shigalike tox-prod E coli STEC Not detected (Not detect); Vibrio PCR Not detected (Not detect); Vibrio cholerae PCR Not detected (Not detect); Yersinia enterocolitica PCR Not detected (Not detect)
[2017-07-09] MEDS: Ipratropium/Albuterol Neb 3 ML IH SCH ×6 (03:44→23:10)
[2017-07-09] MEDS: *HR* Promethazine 25 MG/ML VIAL IVP PRN ×2 (04:01→14:14)
[2017-07-09 04:33] LABS: Basophils % 0.2 %; Eosinophils # 0.1 K/mcL (0.0-0.6); Eosinophils % 2.2 %; Hematocrit 23.8 % (35.3-44.9); Immature Granulocytes % 0.7 % (0-4); Lymphocytes # 1.4 K/mcL (0.6-4.6); Lymphocytes % 24.1 %; Mean Corpuscular HGB Conc 30.3 g/dL (31.6-35.5); Mean Corpuscular Hemoglobin 23.5 pg (28.0-33.3); Mean Corpuscular Volume 77.5 fL (83.0-100.0); Mean Platelet Volume 11.7 fL (9.4-12.4); Monocytes # 0.5 K/mcL (0.0-1.3); Monocytes % 8.5 %; Neutrophils # 3.8 K/mcL (1.6-8.9); Platelet Count 361 K/mcL (140-400); Red Blood Count 3.07 M/mcL (3.82-4.97); Red Cell Distribution Width 17.5 % (11.5-14.5); Segmented Neutrophils % 64.3 %
[2017-07-09 04:39] LABS: Hemoglobin 7.2 g/dL (11.5-15.4)
[2017-07-09] MEDS: 0.9 % Sodium Chloride 1,000 ML IVC SCH ×3 (04:40→22:51)
[2017-07-09 04:56] LABS: Alanine Aminotransferase 20 Units/L (0-55); Albumin/Globulin Ratio 0.8 (1.1-2.2); Alkaline Phosphatase 171 Units/L (38-126); Aspartate Amino Transferase 38 Units/L (5-34); BUN/Creatinine Ratio 4 (6-26); Bilirubin,Total 0.2 mg/dL (0.2-1.2); Carbon Dioxide 23 mEq/L (19-29); Chloride 107 mEq/L (98-109); Glucose 82 mg/dL (70-99); Osmolality,Calculated 283 (280-300); Potassium 2.7 mEq/L (3.5-4.5); Sodium 139 mEq/L (136-145); eGFR For African Americans > 60 (> 60); eGFR For Non-African Americans > 60 (> 60)
[2017-07-09 05:02] LABS: Albumin 2.5 g/dL (3.5-5.0); Blood Urea Nitrogen < 2 mg/dL (7-20); Total Protein 5.5 g/dL (6.0-8.3)
[2017-07-09] MEDS: *HR* Heparin 5,000 UNIT/ML VIAL SQ SCH ×2 (05:58→16:49)
[2017-07-09] MEDS ORDERED: Potassium Chloride 40 MEQ, Lidocaine 1% 2 ML in D5% in Water 500 ML IVPB ONE ×2 (06:44→14:34)
[2017-07-09 07:17] LABS: Magnesium 1.4 mg/dL (1.6-2.6)
[2017-07-09] MEDS ORDERED: Potassium Chloride Elixir 20 MEQ/15 ML UDC PO ONE ×2 (07:21→14:15)
[2017-07-09] MEDS ORDERED: Magnesium Sulfate 2 GM in D5% in Water 100 ML IVPB ONE ×2 (07:30→14:35)
[2017-07-09] MEDS: Pantoprazole 40 MG VIAL IVP SCH (07:59)
--- NOTE | 2017-07-09 08:10 | General Surgery Progress Note ---
<Ivy Hernández - Last Filed: 07/09/17 08:19> Date of Encounter: 07/09/17 Time of Encounter: 06:50 - Assessment and Plan (1) Ileus Current Visit: Yes Status: Acute Patient CT showed mildly dilated loops of bowel. Patient has been having liquid bowel movements and believes the fleet enemas helped. UA negative for UTI. Stool panel negative. WBC decreased to 5.9 (13.6). She came in with low K and Mg. Continuing to replace both as K= 2.7 (3.1) and Mg= 1.4 (1.4). Hemoglobin dropped from 9.4 to 7.2, most likely from dilution but will type and screen and do a hemoccult test. Repeat H/H, Mg, and K at 1300. Will order gastrograffin enema also. Plan: - NPO except ice chips q shift currently - patient can be put on clears after gastrograffin enema - INS 125ml/hr for hydration. - Replaced K with KCl 40meq IV and Elexir 40meq PO daily - Replaced Mg with Mg Sulf 2gm IVPB - type and screen - hemoccult test - repeat H/H, Mg, and K at 1pm - gastrograffin enema ordered - Phenergan for N/V (2) Electrolyte imbalance Current Visit: Yes Status: Acute Vital segment within normal limits. Patient potassium dropped from 3.1 to 2.7 after being given 2 rounds of potassium 40 meq IV yesterday. Potassium replaced today with potassium chloride 40eq IV and Elexir 40meq PO once. Repeat K at 1300 today. Plan: - - Replaced K with KCl 40meq IV and Elexir 40meq PO daily - Replaced Mg with Mg Sulf 2gm IVPB - repeat H/H, Mg, and K at 1300 (3) DVT prophylaxis Current Visit: Yes Status: Acute EOCDs while in bed Heparin injections SQ 5000 units BID Subjective Narrative: Patient is a 42-year-old female with recent transverse colectomy secondary to active hemorrhage from angiodysplasia on 06/29/[address] Berman presented to the ED with abdominal pain and intractable nausea and vomiting patient was admitted to the gen surgery service under Dr. Berman. Today patient states that she feels better than yesterday. Patient had 1 loose bowel movement overnight. Patient's abdominal pain is better controlled today and she did not vomit but was nauseous. Objective Vital Signs - Last 8 Hours Temp Pulse Resp BP Pulse Ox 07/09/17 07:32 98.5 F 77 14 132/83 97 07/09/17 04:12 98.0 F 74 14 133/79 95 07/09/17 00:14 98.7 F 74 16 147/78 98 Intake and Output 07/08/17 07/09/17 07/09/17 23:59 07:59 15:59 Intake Total 1999 1000 / 1000 Output Total 0 / 0 600 / 600 Balance 1999 400 / 400 Intake: IV Fluids 1999 1000 / 1000 0.9 % Sodium Chloride 1,000 ML 1999 1000 / 1000 @ 125 mls/hr IVC .Q8H [facility] Rx#: [id number] Output: Urine 0 / 0 600 / 600 Other: Stool Size Small Stool Consistency loose soft Stool Color Brown Weight 60.781 kg Patient Weight 07/09/17 23:59 Weight 60.781 kg - Additional Exam Constitutional: Alert, in no acute distress, well nourished, well developed. Head: Normocephalic, atraumatic, normal contour and symmetric, no masses, lesions or scars Heart: Normal, regular rate and rhythm, no murmurs Lungs: Clear to auscultation, no wheezes, rales, or rhonchi Abdomen: distension and diffuse tenderness, bowel sounds present, midline incision with stables healing well without signs of infection, Soft and no masses palpable, no guarding or rigidity. Extremities: No clubbing, cyanosis, or edema, radial pulse +2/4, capillary refill <2sec. Skin: Midline vertical incision along the abdomen. Skin warm and dry, no lesions, no rashes, no jaundice Neurologic: Cranial nerves II through XII grossly intact, no focal deficits, strength within normal limits in all extremities Psych: Cooperative with exam, good eye contact, cognitive function intact, judgment good insight good, speech clear, thought process logical, and goal directed - Labs 07/09/17 03:33 07/09/17 03:33 Diabetes panel 07/08/17 07/09/17 Range/Units 14:07 03:33 Sodium 140 139 (136-145) mEq/L Potassium 3.1 L 2.7 L (3.5-4.5) mEq/L Chloride 108 107 (98-109) mEq/L Carbon Dioxide 22 23 (19-29) mEq/L BUN 3 L < 2 L (7-20) mg/dL Creatinine 0.53 L 0.49 L (0.57-1.11) mg/dL Glucose 80 82 (70-99) mg/dL Calcium 8.5 L 8.0 L (8.6-10.8) mg/dL AST 38 H (5-34) Units/L ALT 20 (0-55) Units/L Alkaline Phosphatase 171 H (38-126) Units/L Albumin 2.5 L D (3.5-5.0) g/dL Calcium panel 07/08/17 07/09/17 Range/Units 14:07 03:33 Calcium 8.5 L 8.0 L (8.6-10.8) mg/dL Albumin 2.5 L D (3.5-5.0) g/dL Pituitary panel 07/08/17 07/09/17 Range/Units 14:07 03:33 Sodium 140 139 (136-145) mEq/L Potassium 3.1 L 2.7 L (3.5-4.5) mEq/L Chloride 108 107 (98-109) mEq/L Carbon Dioxide 22 23 (19-29) mEq/L BUN 3 L < 2 L (7-20) mg/dL Creatinine 0.53 L 0.49 L (0.57-1.11) mg/dL Glucose 80 82 (70-99) mg/dL Calcium 8.5 L 8.0 L (8.6-10.8) mg/dL Adrenal panel 07/08/17 07/09/17 Range/Units 14:07 03:33 Sodium 140 139 (136-145) mEq/L Potassium 3.1 L 2.7 L (3.5-4.5) mEq/L Chloride 108 107 (98-109) mEq/L Carbon Dioxide 22 23 (19-29) mEq/L BUN 3 L < 2 L (7-20) mg/dL Creatinine 0.53 L 0.49 L (0.57-1.11) mg/dL Glucose 80 82 (70-99) mg/dL Calcium 8.5 L 8.0 L (8.6-10.8) mg/dL Total Bilirubin 0.2 (0.2-1.2) mg/dL AST 38 H (5-34) Units/L ALT 20 (0-55) Units/L Alkaline Phosphatase 171 H (38-126) Units/L Albumin 2.5 L D (3.5-5.0) g/dL Consult Discharge Plan - Plan Referrals: Eddie Ge MD [Primary Care Provider] - <Alec Berman - Last Filed: 07/09/17 17:44> Date of Encounter: 07/09/17 Objective Vital Signs - Last 8 Hours Temp Pulse Resp BP Pulse Ox 07/09/17 15:03 99.3 F 76 14 125/77 95 07/09/17 11:34 70 16 129/80 96 Intake and Output 07/09/17 07/09/17 07/09/17 07:59 15:59 23:59 Intake Total 1240 / 1240 Balance 1240 / 1240 Intake: IV Fluids 1000 / 1000 0.9 % Sodium Chloride 1,000 ML 1000 / 1000 @ 125 mls/hr IVC .Q8H [facility] Rx#: [id number] Oral 240 / 240 Other: Meal NPO Percent of Meal Consumed 0% - Labs 07/09/17 03:33 07/09/17 13:39 Diabetes panel 07/09/17 Range/Units 13:39 Potassium 3.2 L (3.5-4.5) mEq/L Pituitary panel 07/09/17 Range/Units 13:39 Potassium 3.2 L (3.5-4.5) mEq/L Adrenal panel 07/09/17 Range/Units 13:39 Potassium 3.2 L (3.5-4.5) mEq/L - Attending Attestation I examined this patient and my medical decision-making was reviewed with the Resident Physician. I agree with the documented findings, disposition and treatment plan as described except to the extent set forth below. The patient was seen and evaluated on morning rounds. Her abdominal pain is much better. I saw the patient this morning at 7 AM and then again this afternoon. Her Gastrografin enema demonstrated a widely patent small bowel to descending colon anastomosis with no evidence of leak. We will continue to treat her symptomatically. She should improve Alec Berman MD FACS
[2017-07-09 14:27] LABS: Magnesium 1.4 mg/dL (1.6-2.6); Potassium 3.2 mEq/L (3.5-4.5)
[2017-07-10] MEDS: *HR* HYDROmorphone 2 MG/ML SYRINGE IVP PRN ×2 (02:19→05:47)
[2017-07-10] MEDS: Ipratropium/Albuterol Neb 3 ML IH SCH ×6 (03:25→22:48)
[2017-07-10] MEDS: *HR* Heparin 5,000 UNIT/ML VIAL SQ SCH ×2 (05:46→17:18)
[2017-07-10] MEDS: *HR* Promethazine 25 MG/ML VIAL IVP PRN (05:46)
[2017-07-10 05:49] LABS: Basophils % 0.4 %; Eosinophils # 0.2 K/mcL (0.0-0.6); Eosinophils % 2.8 %; Hematocrit 24.6 % (35.3-44.9); Hemoglobin 7.5 g/dL (11.5-15.4); Immature Granulocytes % 0.6 % (0-4); Lymphocytes # 1.4 K/mcL (0.6-4.6); Lymphocytes % 25.3 %; Mean Corpuscular HGB Conc 30.5 g/dL (31.6-35.5); Mean Corpuscular Hemoglobin 23.7 pg (28.0-33.3); Mean Corpuscular Volume 77.8 fL (83.0-100.0); Mean Platelet Volume 11.3 fL (9.4-12.4); Monocytes # 0.5 K/mcL (0.0-1.3); Monocytes % 9.9 %; Neutrophils # 3.3 K/mcL (1.6-8.9); Platelet Count 393 K/mcL (140-400); Red Blood Count 3.16 M/mcL (3.82-4.97); Red Cell Distribution Width 17.9 % (11.5-14.5)
[2017-07-10 06:05] LABS: BUN/Creatinine Ratio 4 (6-26); Calcium 8.2 mg/dL (8.6-10.8); Carbon Dioxide 24 mEq/L (19-29); Chloride 106 mEq/L (98-109); Glucose 85 mg/dL (70-99); Magnesium 1.6 mg/dL (1.6-2.6); Osmolality,Calculated 283 (280-300); Phosphorous 2.8 mg/dL (2.3-4.7); Potassium 3.1 mEq/L (3.5-4.5); Sodium 139 mEq/L (136-145); eGFR For African Americans > 60 (> 60); eGFR For Non-African Americans > 60 (> 60)
[2017-07-10 06:07] LABS: Blood Urea Nitrogen < 2 mg/dL (7-20)
[2017-07-10] MEDS ORDERED: Magnesium Sulfate 2 GM in D5% in Water 100 ML IVPB ONE ×2 (07:35→09:50)
[2017-07-10] MEDS ORDERED: Potassium Chloride 40 MEQ, Lidocaine 1% 2 ML in D5% in Water 500 ML IVPB ONE (07:35)
[2017-07-10] MEDS ORDERED: Ondansetron ODT 4 MG TAB.RAPDIS SL PRN (08:38)
--- NOTE | 2017-07-10 08:44 | General Surgery Progress Note ---
Addendum entered and electronically signed by Ivy Hernández DO 07/10/17 09:51 : Correction replacing Mg with Mg sulfate 4gm IVP. Original Note: <Ivy Hernández - Last Filed: 07/10/17 09:47> Date of Encounter: 07/10/17 Time of Encounter: 06:50 - Assessment and Plan (1) Ileus Current Visit: Yes Status: Acute Patient CT showed mildly dilated loops of bowel. Patient has been having liquid bowel movements and believes the fleet enemas helped. UA negative for UTI. Stool panel negative. Gastrograffin enema shows no signs of leak or obstruction , dilated loops of small bowel though. WBC decreased to 5.4. She came in with low K and Mg. Continuing to replace both K and Mg. Potassium is still low despite multiple infusions of K. Considering need for PO K BID at discharge. Hemoglobin stable. Hemoccult test pending. Plan: - Advance to full liquids. - INS 125ml/hr for hydration. - Replaced K with KCl 40meq IV and Elexir 40meq PO BID - Replaced Mg with Mg Sulf 2gm IVPB - type and screened - hemoccult test pending - switching all medications from IV to PO to decrease nausea and prepare for home (2) Electrolyte imbalance Current Visit: Yes Status: Acute Vital segment within normal limits. Patient potassium still low today will replaced with potassium chloride 40eq IV and Elexir 40meq PO BID. Considering adding K PO daily for home. Mg still mildly low at 1.6. Will replace with Mg Sulf 2mg IVP Plan: - Replaced K with KCl 40meq IV and Elexir 40meq PO BID - Replaced Mg with Mg Sulf 2gm IVPB - Patient is currently on telemetry (3) DVT prophylaxis Current Visit: Yes Status: Acute EOCDs while in bed Heparin injections SQ 5000 units BID Subjective Narrative: Patient is a 42-year-old female with recent transverse colectomy secondary to active hemorrhage from angiodysplasia on 06/29/[address] Berman presented to the ED with abdominal pain and intractable nausea and vomiting patient was admitted to the gen surgery service under Dr. Berman. Today patient states that she is feeling good today. She has had frequent bowel movements that are becoming more formed. She says she has been nauseous but only after taking IV pain medications. She has not had any vomiting. Objective Vital Signs - Last 8 Hours Temp Pulse Resp BP Pulse Ox 07/10/17 06:37 98.2 F 74 16 124/78 94 07/10/17 03:11 98.3 F 79 20 116/77 96 Intake and Output 07/09/17 07/10/17 07/10/17 23:59 07:59 15:59 Intake Total 1000 / 1000 Output Total 0 / 0 Balance 1000 / 1000 Intake: IV Fluids 1000 / 1000 0.9 % Sodium Chloride 1,000 ML 1000 / 1000 @ 125 mls/hr IVC .Q8H [facility] Rx#: [id number] Output: Urine 0 / 0 Other: Meal Dinner Percent of Meal Consumed 0% Weight 62.596 kg Patient Weight 07/10/17 23:59 Weight 62.596 kg - Additional Exam Constitutional: Alert, in no acute distress, well nourished, well developed. Head: Normocephalic, atraumatic, normal contour and symmetric, no masses, lesions or scars Heart: Normal, regular rate and rhythm, no murmurs Lungs: Clear to auscultation, no wheezes, rales, or rhonchi Abdomen: significant decrease in distension and tenderness, bowel sounds present, midline incision with stables healing well without signs of infection, Soft and no masses palpable, no guarding or rigidity. Extremities: No clubbing, cyanosis, or edema, radial pulse +2/4, capillary refill <2sec. Skin: Midline vertical incision along the abdomen. Skin warm and dry, no lesions, no rashes, no jaundice Neurologic: Cranial nerves II through XII grossly intact, no focal deficits, strength within normal limits in all extremities Psych: Cooperative with exam, good eye contact, cognitive function intact, judgment good insight good, speech clear, thought process logical, and goal directed - Labs 07/10/17 05:28 07/10/17 05:28 Diabetes panel 07/09/17 07/10/17 Range/Units 13:39 05:28 Sodium 139 (136-145) mEq/L Potassium 3.2 L 3.1 L (3.5-4.5) mEq/L Chloride 106 (98-109) mEq/L Carbon Dioxide 24 (19-29) mEq/L BUN < 2 L (7-20) mg/dL Creatinine 0.48 L (0.57-1.11) mg/dL Glucose 85 (70-99) mg/dL Calcium 8.2 L (8.6-10.8) mg/dL Calcium panel 07/10/17 Range/Units 05:28 Calcium 8.2 L (8.6-10.8) mg/dL Phosphorus 2.8 (2.3-4.7) mg/dL Pituitary panel 07/09/17 07/10/17 Range/Units 13:39 05:28 Sodium 139 (136-145) mEq/L Potassium 3.2 L 3.1 L (3.5-4.5) mEq/L Chloride 106 (98-109) mEq/L Carbon Dioxide 24 (19-29) mEq/L BUN < 2 L (7-20) mg/dL Creatinine 0.48 L (0.57-1.11) mg/dL Glucose 85 (70-99) mg/dL Calcium 8.2 L (8.6-10.8) mg/dL Adrenal panel 07/09/17 07/10/17 Range/Units 13:39 05:28 Sodium 139 (136-145) mEq/L Potassium 3.2 L 3.1 L (3.5-4.5) mEq/L Chloride 106 (98-109) mEq/L Carbon Dioxide 24 (19-29) mEq/L BUN < 2 L (7-20) mg/dL Creatinine 0.48 L (0.57-1.11) mg/dL Glucose 85 (70-99) mg/dL Calcium 8.2 L (8.6-10.8) mg/dL Consult Discharge Plan - Plan Referrals: Eddie Ge MD [Primary Care Provider] - <Alec Berman - Last Filed: 07/10/17 15:28> Date of Encounter: 07/10/17 Objective Vital Signs - Last 8 Hours Temp Pulse Resp BP Pulse Ox 07/10/17 14:46 98.6 F 64 16 129/82 98 Intake and Output 07/09/17 07/10/17 07/10/17 23:59 07:59 15:59 Intake Total 1000 / 1000 480 / 480 Output Total 0 / 0 Balance 1000 / 1000 480 / 480 Intake: IV Fluids 1000 / 1000 0.9 % Sodium Chloride 1,000 ML 1000 / 1000 @ 125 mls/hr IVC .Q8H [facility] Rx#: [id number] Oral 480 / 480 Output: Urine 0 / 0 Other: Meal Dinner Lunch Percent of Meal Consumed 0% 50% Weight 62.596 kg Patient Weight 07/10/17 23:59 Weight 62.596 kg - Labs 07/10/17 05:28 07/10/17 05:28 Diabetes panel 07/10/17 Range/Units 05:28 Sodium 139 (136-145) mEq/L Potassium 3.1 L (3.5-4.5) mEq/L Chloride 106 (98-109) mEq/L Carbon Dioxide 24 (19-29) mEq/L BUN < 2 L (7-20) mg/dL Creatinine 0.48 L (0.57-1.11) mg/dL Glucose 85 (70-99) mg/dL Calcium 8.2 L (8.6-10.8) mg/dL Calcium panel 07/10/17 Range/Units 05:28 Calcium 8.2 L (8.6-10.8) mg/dL Phosphorus 2.8 (2.3-4.7) mg/dL Pituitary panel 07/10/17 Range/Units 05:28 Sodium 139 (136-145) mEq/L Potassium 3.1 L (3.5-4.5) mEq/L Chloride 106 (98-109) mEq/L Carbon Dioxide 24 (19-29) mEq/L BUN < 2 L (7-20) mg/dL Creatinine 0.48 L (0.57-1.11) mg/dL Glucose 85 (70-99) mg/dL Calcium 8.2 L (8.6-10.8) mg/dL Adrenal panel 07/10/17 Range/Units 05:28 Sodium 139 (136-145) mEq/L Potassium 3.1 L (3.5-4.5) mEq/L Chloride 106 (98-109) mEq/L Carbon Dioxide 24 (19-29) mEq/L BUN < 2 L (7-20) mg/dL Creatinine 0.48 L (0.57-1.11) mg/dL Glucose 85 (70-99) mg/dL Calcium 8.2 L (8.6-10.8) mg/dL - Attending Attestation I examined this patient and my medical decision-making was reviewed with the Resident Physician. I agree with the documented findings, disposition and treatment plan as described except to the extent set forth below. The patient is seen and evaluated on morning rounds with resting. She has made tremendous improvement. She is having multiple bowel movements. She continues to be mildly distended. I believe that she has a postoperative ileus related to electrolyte abnormality. This is being corrected. She should make a full recovery. Alec Berman MD FACS
[2017-07-10] MEDS: Pantoprazole 40 MG VIAL IVP SCH (10:10)
[2017-07-10] MEDS: *HR* OxyCODONE/APAP 5/325 TABLET PO PRN ×3 (10:20→21:07)
[2017-07-10] MEDS: 0.9 % Sodium Chloride 1,000 ML IVC SCH (15:43)
[2017-07-11] MEDS: 0.9 % Sodium Chloride 1,000 ML IVC SCH ×2 (00:46→08:50)
[2017-07-11] MEDS: Ipratropium/Albuterol Neb 3 ML IH SCH ×3 (03:31→10:21)
[2017-07-11 05:25] LABS: Basophils % 0.3 %; Eosinophils # 0.2 K/mcL (0.0-0.6); Eosinophils % 3.5 %; Hematocrit 24.7 % (35.3-44.9); Hemoglobin 7.4 g/dL (11.5-15.4); Immature Granulocytes % 0.5 % (0-4); Lymphocytes # 1.1 K/mcL (0.6-4.6); Lymphocytes % 17.9 %; Mean Corpuscular Hemoglobin 23.4 pg (28.0-33.3); Mean Corpuscular Volume 78.2 fL (83.0-100.0); Mean Platelet Volume 11.6 fL (9.4-12.4); Monocytes # 0.5 K/mcL (0.0-1.3); Monocytes % 8.5 %; Neutrophils # 4.4 K/mcL (1.6-8.9); Platelet Count 403 K/mcL (140-400); Red Blood Count 3.16 M/mcL (3.82-4.97); Red Cell Distribution Width 17.8 % (11.5-14.5); Segmented Neutrophils % 69.3 %
[2017-07-11 05:41] LABS: BUN/Creatinine Ratio 4 (6-26); Calcium 8.2 mg/dL (8.6-10.8); Carbon Dioxide 21 mEq/L (19-29); Chloride 109 mEq/L (98-109); Glucose 79 mg/dL (70-99); Magnesium 1.7 mg/dL (1.6-2.6); Osmolality,Calculated 281 (280-300); Potassium 4.2 mEq/L (3.5-4.5); Sodium 138 mEq/L (136-145); eGFR For African Americans > 60 (> 60); eGFR For Non-African Americans > 60 (> 60)
[2017-07-11 05:42] LABS: Blood Urea Nitrogen < 2 mg/dL (7-20)
[2017-07-11] MEDS: *HR* Heparin 5,000 UNIT/ML VIAL SQ SCH (06:07)
[2017-07-11] MEDS: *HR* OxyCODONE/APAP 5/325 TABLET PO PRN (06:10)
[2017-07-11] MEDS ORDERED: Magnesium Sulfate 4 GM in D5% in Water 100 ML IVPB ONE (06:35)
--- NOTE | 2017-07-11 08:26 | Discharge Summary ---
<Ivy Hernández - Last Filed: 07/11/17 08:22> Date of Encounter: 07/11/17 Time of Encounter: 06:45 - Discharge Diagnosis (1) Ileus Priority: Primary Status: Acute (2) Electrolyte imbalance Priority: Secondary Status: Acute (3) DVT prophylaxis Priority: Secondary Status: Acute - Discharge Medications Prescriptions: Docusate [Colace] 100 mg PO BID #30 capsule Potassium Chloride 40 meq PO DAILY #30 tab.er.prt Psyllium Husk/Calcium Carb [Metamucil Plus Calcium Capsule] 1 each PO BID #60 capsule Home Medications: OxyCODONE/APAP 10/325 [Percocet 10/325 MG] 1 tab PO Q4HR PRN #40 tablet [Rx] Docusate [Colace] 100 mg PO BID #30 capsule 07/11/17 [Rx] Potassium Chloride 40 meq PO DAILY #30 tab.er.prt 07/11/17 [Rx] Psyllium Husk/Calcium Carb [Metamucil Plus Calcium Capsule] 1 each PO BID #60 capsule 07/11/17 [Rx] Allergies/Adverse Reactions: 3 Allergy/AdvReac Type Severity Reaction Status Date / Time fentanyl Allergy Hives Verified 07/08/17 02:49 General Surgery Exam Initial Vital Signs Temp Pulse Resp BP Pulse Ox 97.9 F 100 20 133/84 99 07/08/17 02:46 07/08/17 02:46 07/08/17 02:46 07/08/17 02:46 07/08/17 02:46 - Additional Findings Constitutional: Alert, in no acute distress, well nourished, well developed. Head: Normocephalic, atraumatic, normal contour and symmetric, no masses, lesions or scars Heart: Normal, regular rate and rhythm, no murmurs Lungs: Clear to auscultation, no wheezes, rales, or rhonchi Abdomen: significant decrease in distension and tenderness, bowel sounds present, midline incision with stables healing well without signs of infection, Soft and no masses palpable, no guarding or rigidity. Extremities: No clubbing, cyanosis, or edema, radial pulse +2/4, capillary refill <2sec. Skin: Midline vertical incision along the abdomen. 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 [CONS] Routine Reason for SW Consult: hospital re-admission Discharging clinician: Alec Berman Anticipated date of discharge: 07/11/17 - Patient Status Disposition: Home, Self-Care Condition: Undetermined Overall status at discharge: patient is progressing back to baseline - Discharge Instructions Instructions: Potassium Chloride (By mouth), Laxative, Bulk-forming (By mouth) , Laxative, Stool Softeners (By mouth), Ileus (DC) Follow Up With: Alec Berman MD [Partnered Physician] - 07/22/17 8:55 am Noelle Lomeli CNP [Advanced Practice Nurse] - 07/21/17 2:00 pm Additional Instructions: Instructions: 1. Can take Percocet and Zofran prescribed from previous hospital encounter. 2. Please drink Gatorade for the next 3 weeks to help with replacement of electrolytes. 3. In 1 week go to the lab and get a your electrolyte levels. Primary Care Physician will manage. 4. Follow up with her primary care physician in one to 2 weeks. 5. Follow-up with Dr. Berman on 07/22/17 at 0855. 6. Diet: Avoid fatty foods and progress diet as tolerated. Prior Instructions: 1. May shower, No tub/bath until release per surgeon. 2. Wash incision with soap and water. Pat dry daily. 3. No lifting, pushing, pulling more than 15 lbs per 6 weeks. 4. No driving until off narcotics for 24 hrs and safety able to react in the car. 5. May climb stairs. - Diet and Activity Activity: increase activity as tolerated Diet: advance to your usual diet - Hospital Course Hospital course: Ms. Matos is a 42 year old female status post transverse colectomy secondary to active hemorrhage from angiodysplasia on 06/29/[address] Berman presented to the ED with abdominal pain and intractable nausea and vomiting patient was admitted to the gen surgery service under Dr. Berman. Patient was found to have an ileus most likely due to electrolyte imbalance and opioid pain medication use. Patient 's potassium was initially 2.7 and Mg was 1.4 upon arrival. UA negative for UTI. Stool panel negative. Gastrograffin enema shows no signs of leak or obstruction, dilated loops of small bowel though. Patients electrolytes were corrected while in the hospital and reglan was given to help stimulate bowel movements. Patient's pain and nausea were well managed with oral medications before discharge and electrolytes were replaced. Incisional domonique were removed before discharge. Patient was sent home with potassium 40mg daily, colace, and psyllium capsules. Patient instructed to continue pain and nausea medication given at previous hospital admission discharge. Patient was also instructed to drink Gatorade for the next 3 weeks to help with electrolyte replacement. Patient had a f/u appointment made with Dr. Berman on 07/22/17 and instructed to f/u with her PCP in 1-2 weeks. Patient given a slip for outpatient lab for CBC and Mg level to be managed by her PCP. - Time Spent with Patient Total time spent providing and/or coordinating discharge services: Labs on day of discharge: Labs from last 24 hours 07/11/17 07/11/17 07/10/17 04:35 04:35 22:51 WBC 6.4 RBC 3.16 L Hgb 7.4 L Hct 24.7 L MCV 78.2 L MCH 23.4 L MCHC 30.0 L RDW 17.8 H Plt Count 403 H MPV 11.6 Immature Gran % 0.5 Seg Neutrophils % 69.3 Lymphocytes % 17.9 Monocytes % 8.5 Eosinophils % 3.5 Basophils % 0.3 Neutrophils # 4.4 Lymphocytes # 1.1 Monocytes # 0.5 Eosinophils # 0.2 Basophils # 0.0 Sodium 138 Potassium 4.2 D Chloride 109 Carbon Dioxide 21 BUN < 2 L Creatinine 0.50 L Est GFR ( Amer) > 60 Est GFR (Non-Af Amer) > 60 BUN/Creatinine Ratio 4 L Glucose 79 Calculated Osmolality 281 Calcium 8.2 L Magnesium 1.7 Stool Occult Blood Negative <Alec Berman - Last Filed: 07/11/17 12:45> Date of Encounter: 07/11/17 General Surgery Exam Initial Vital Signs Temp Pulse Resp BP Pulse Ox 97.9 F 100 20 133/84 99 07/08/17 02:46 10/03/17 02:46 07/08/17 02:46 07/08/17 02:46 07/08/17 02:46 Date of admission: 07/09/17 10:00 Primary care physician: Eddie Ge MD Consults: 07/09/17 12:10 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 Matos is a 42 year old female - Time Spent with Patient Total time spent providing and/or coordinating discharge services: Labs on day of discharge: Labs from last 24 hours 07/11/17 07/11/17 07/10/17 04:35 04:35 22:51 WBC 6.4 RBC 3.16 L Hgb 7.4 L Hct 24.7 L MCV 78.2 L MCH 23.4 L MCHC 30.0 L RDW 17.8 H Plt Count 403 H MPV 11.6 Immature Gran % 0.5 Seg Neutrophils % 69.3 Lymphocytes % 17.9 Monocytes % 8.5 Eosinophils % 3.5 Basophils % 0.3 Neutrophils # 4.4 Lymphocytes # 1.1 Monocytes # 0.5 Eosinophils # 0.2 Basophils # 0.0 Sodium 138 Potassium 4.2 D Chloride 109 Carbon Dioxide 21 BUN < 2 L Creatinine 0.50 L Est GFR ( Amer) > 60 Est GFR (Non-Af Amer) > 60 BUN/Creatinine Ratio 4 L Glucose 79 Calculated Osmolality 281 Calcium 8.2 L Magnesium 1.7 Stool Occult Blood Negative - Attending Attestation I examined this patient and my medical decision-making was reviewed with the Resident Physician. I agree with the documented findings, disposition and treatment plan as described except to the extent set forth below. The patient is seen and evaluated with rest and on morning rounds. The abdomen is soft. She is having normal bowel movements. She is ready for discharge. Alec Berman MD FACS
[2017-07-11 08:27] VITALS: BP 147/95
[2017-07-11] MEDS: Pantoprazole 40 MG VIAL IVP SCH (08:39)
[2017-07-11] MEDS: Magnesium Sulfate 2 GM in D5% in Water 100 ML IVPB SCH ×2 (08:40→09:51)
== END 2017-07-11 11:30 | disposition home or self-care (01) | DRG 641 ==
LOC: EMEROO 02:44 → 3ANU 02:44 → 3BNU 06:37
PROVIDERS: ADMIT Surgery; ATTEND Surgery